=== PATIENT | female | born 1950 | race African-American/Black ===

== ENCOUNTER 2018-12-11 16:19 | Inpatient (IN) | payer OTHER ==
[~2018-12-11] VITALS: Ht 180.3 cm; Wt 86.4 kg
[2018-12-11 16:36] VITALS: Ht 180.3 cm; Wt 86.4 kg
[2018-12-11] MEDS ORDERED: CEFEPIME 2GM/50 ML (PMX) 50 ML IVPB STA (16:38)
--- NOTE | 2018-12-11 16:44 | ERD ---
ER Documentation Chief Complaint Chief Complaint fr [facility], altered >ususal since 0900, abx KieraI HPI 68-year-old female presenting by ambulance from [facility], [place] for altered mental status. This started around 9 AM today. Reportedly she is on antibiotics for a UTI. Otherwise history is limited as the patient is unable to answer any questions due to her mental status. ROS Unable to obtain secondary to altered mental status Medications Home Meds Reported Medications Vancomycin HCl in Dextrose 5 % (Vancomycin 1.5 Gram/250 ml-D5w) 1.5 Gm/250 Ml Plast..bag, 1.5 GM IV Q48H FOR 7 DAYS,END DATE 12/17/18 12/11/18 Tuberculin,Purif.prot.deriv. (Tubersol) 5 Tub Unit/0.1 Ml Vial, 5 TUB ID QHS, VIAL EVERY 365 DAY. 12/11/18 Tramadol Hcl* (Ultram*) 50 Mg Tablet, 50 MG GTB Q6H PRN for PAIN -06/22, TAB 12/11/18 Simethicone* (Mylicon*) 80 Mg Tab, 80 MG GTB Q6H, TAB 12/11/18 Protein Supplement (Promod) 946 Ml Liquid, 30 ML GTB TID 12/11/18 Multivitamin/Minerals* (Multivitamin w/Min* Liq) 9 Mg/15 Ml Liquid, 30 ML GTB DAILY, ML 12/11/18 Mirtazapine* (Mirtazapine*) 7.5 Mg Tablet, 7.5 MG GTB HS, TAB 12/11/18 Metformin Hcl* (Metformin Hcl*) 500 Mg Tablet, 500 MG GTB WITH BREAKFAST DINNE, #60 TAB 12/11/18 Levothyroxine Sodium* (Levothyroxine Sodium*) 75 Mcg Tablet, 75 MCG GTB BEFORE BREAKFAST, #30 TAB 12/11/18 Gabapentin* (Gabapentin*) 300 Mg Capsule, 300 MG GTB QHS, #60 CAP 12/11/18 Ipratropium-Albuterol (Ipratropium-Albuterol) 0.5-3 Mg/3 Ml Ampul.neb, 3 ML INHALATION Q6 PRN for NEEDED, #30 VIAL 12/11/18 Clonidine Hcl* (Clonidine Hcl*) 0.1 Mg Tab, 0.1 MG GTB Q6H PRN for FOR SBP>160, TAB 12/11/18 Cefepime HCl (Cefepime HCl) 2 Gm Vial, 2 GM IV* BID, VIAL FOR 7 DAYS, END DATE 12/14/18 12/11/18 Ascorbic Acid (Vitamin C) 500 Mg Tab, 500 MG GTB DAILY, TAB 12/11/18 Acetaminophen* (Acetaminophen*) 325 Mg Tablet, 650 MG GTB Q6H PRN for MILD PAIN LEVEL 1-3, #30 TAB AND FEVER>101F 12/11/18 Allergies Allergies: Coded Allergies: benazepril (Unverified Allergy, Unknown, 12/11/18) PMhx/Soc History of Surgery: Yes (Tracheostomy, G-tube) Hx Neurological Disorder: Yes (Cervical disc disorder with myelopathy) Hx Respiratory Disorders: Yes (Chronic respiratory failure) Hx Cardiac Disorders: Yes (Diastolic congestive heart failure, hypertension) Hx Miscellaneous Medical Probl: Yes (DVT right lower extremity, hypothyroid) FmHx Unable to obtain Physical Exam Vitals Vital Signs Date Temp Pulse Resp B/P (MAP) Pulse Ox O2 O2 Flow FiO2 Time Delivery Rate 12/11/18 96.2 64 14 128/70 100 Nasal 2.0 18:29 (89) Cannula 12/11/18 Nasal 2 17:40 Cannula 12/11/18 51 15 99/72 (81) 100 Nasal 2.0 17:40 Cannula 12/11/18 93.0 66 19 175/159 100 Trach 17:09 (164) Collar 12/11/18 96.3 67 23 135/121 100 16:36 (126) Physical Exam Const: No acute distress. Alert, awake, not speaking Head: Atraumatic Eyes: Normal Conjunctiva, PERRLA, EOMI ENT: Dry mucous membranes. Normal External Ears, Nose and Mouth. Neck: Full range of motion. No meningismus.Trach in place Resp: Tachypneic. Rhonchi bilaterally, possibly transmitted upper respiratory sounds Cardio: Regular rate and rhythm, no murmurs Abd: Soft, non tender, non distended. Normal bowel sounds Skin: No petechiae or rashes Back: No midline or flank tenderness Ext: No cyanosis, or edema Neur: Awake and alert, not speaking, not following commands but makes eye contact and tracks. moves upper extremities spontaneously. No withdrawal to pain in lower extremities Psych: Calm Result Diagram: 12/11/18 1650 12/11/18 1650 Results 24 hrs Laboratory Tests Test 12/11/18 16:50 12/11/18 17:04 White Blood Count 8.2 10^3/ul Red Blood Count 2.56 10^6/ul Hemoglobin 7.2 g/dl Hematocrit 22.5 % Mean Corpuscular Volume 87.9 fl Mean Corpuscular Hemoglobin 28.1 pg Mean Corpuscular Hemoglobin Concent 32.0 g/dl Red Cell Distribution Width 13.3 % Platelet Count 376 10^3/UL Mean Platelet Volume 9.6 fl Immature Granulocytes % 4.900 % Neutrophils % 74.6 % Lymphocytes % 13.9 % Monocytes % 6.0 % Eosinophils % 0.4 % Basophils % 0.2 % Nucleated Red Blood Cells % 0.6 /100WBC Immature Granulocytes # 0.400 10^3/ul Neutrophils # 6.1 10^3/ul Lymphocytes # 1.1 10^3/ul Monocytes # 0.5 10^3/ul Eosinophils # 0.0 10^3/ul Basophils # 0.0 10^3/ul Nucleated Red Blood Cells # 0.1 10^3/ul Prothrombin Time 13.8 Sec Prothrombin Time Ratio 1.1 INR International Normalized Ratio 1.05 Activated Partial Thromboplast Time 33.6 Sec Sodium Level 148 mmol/L Potassium Level 3.5 mmol/L Chloride Level 116 mmol/L Carbon Dioxide Level 24 mmol/L Anion Gap 8 Blood Urea Nitrogen 147 mg/dl Creatinine 1.07 mg/dl Est Glomerular Filtrat Rate mL/min > 60 mL/min Glucose Level 129 mg/dl Lactic Acid Level 1.6 mmol/L Calcium Level 9.1 mg/dl Total Bilirubin 0.1 mg/dl Direct Bilirubin 0.00 mg/dl Indirect Bilirubin 0.1 mg/dl Aspartate Amino Transf (AST/SGOT) 26 IU/L Alanine Aminotransferase (ALT/SGPT) 17 IU/L Alkaline Phosphatase 89 IU/L Troponin I < 0.012 ng/ml Total Protein 8.3 g/dl Albumin 3.0 g/dl Globulin 5.30 g/dl Albumin/Globulin Ratio 0.56 Urine Color YELLOW Urine Clarity CLOUDY Urine pH 6.0 Urine Specific [place] 1.013 Urine Ketones TRACE mg/dL Urine Nitrite NEGATIVE mg/dL Urine Bilirubin NEGATIVE mg/dL Urine Urobilinogen NEGATIVE mg/dL Urine Leukocyte Esterase 3+ Gm/ul Urine Microscopic RBC 2 /HPF Urine Microscopic WBC > 182 /HPF Urine Bacteria FEW /HPF Urine Hemoglobin NEGATIVE mg/dL Urine Glucose NEGATIVE mg/dL Urine Total Protein 1+ mg/dl Current Medications Medications Dose Sig/Tracy Start Time Status Last (Trade) Ordered Route PRN Stop Time Admin Dose Reason Admin Cefepime HCl 50 ml @ ONCE STAT 12/11/18 DC 12/11/18 100 mls/hr IVPB 16:38 17:24 12/11/18 17:07 Vancomycin 250 ml @ ONCE ONCE 12/11/18 12/11/18 HCl 125 mls/hr IVPB 17:00 18:04 12/11/18 18:59 Sodium 2,590 ml BOLUS OVER 2 12/11/18 DC 12/11/18 Chloride HOURS STAT 16:45 16:45 (NS) IV* 12/11/18 16:46 Ondansetron 4 mg ER BRIDGE 12/11/18 HCl (Zofran PRN IV 18:30 12/12/18 Inj) NAUSEA/VOMITI 18:29 NG 650 mg ER BRIDGE 12/11/18 Acetaminophen PRN PO 18:30 12/12/18 (Tylenol .MILD PAIN 18:29 Tab) 1-3 OR TEMP Procedures/MDM EMERGENT LABS AND DIAGNOSTIC STUDIES: Lab Results above were reviewed and interpreted by me. CBC: Anemic. No leukocytosis or thrombocytosis CMP: Hypernatremia, hyperchloremia, elevated BUN, consistent with dehydration and prerenal azotemia. No evidence of electrolyte abnormality, hypoglycemia, liver failure, or biliary obstruction Troponin within normal limits, not indicative of cardiac ischemia Lactate within normal limits without evidence of sepsis or tissue hypoperfusion UA: Evidence of UTI 12-lead EKG was interpreted by Yas Frias MD: Sinus bradycardia at 57 bpm with first-degree AV block Normal axis Normal intervals No acute ST or T wave changes suggestive of acute ischemia or STEMI. Radiology Results as interpreted by Radiology below were reviewed by Velma Frias MD: Chest x-ray: Evidence of pneumonia CT head: No acute abnormalities Initial Nursing notes reviewed. Previous Medical Records requested via the Electronic Health Record. EMERGENCY DEPARTMENT COURSE / MEDICAL DECISION MAKING: Patient is presenting with altered mental status and workup that shows evidence of UTI and pneumonia. She was hypothermic, for which more warming measures were started. Labs do indicate patient is severely dehydrated. Sepsis workup and treatment was initiated. Patient's infectious symptoms have not stabilized and the patient is at risk of rapid decompensation. The patient will be admitted for careful hydration, antibiotic therapy, and infectious source control. Severe Sepsis Assessment: Infectious Source: Health care associated pneumonia, UTI End organ damage indicated by: Altered mental status Severe Sepsis Managment: Blood Cultures X 2 before broad spectrum antibiotics initiated within 3 hours of recognition. 30 ml/kg NS bolus Completed Initial Lactate: [normal] Repeat Lactate [not indicated as initial < 2.0] Critical Care: Time: 45 minutes Treatments/Evaluations: Emergent fluid management, while maintaining close respiratory support. Immediate broad spectrum antibiotic therapy. Simultaneous assessment for possible sources in order to direct therapy. Consideration for invasive and chemical support to prevent respiratory or cardiac collapse. Septic Shock Assessment (1 hour post 30 ml/kg fluid bolus): Hypotension (SBP < 90 or 40 mmHg drop, MAP < 65): [No] Lactic acid > 4.0 [No] Accepting Care Team: Current data and ongoing care discussed. Time: Time of admission Primary Provider: Dr. Frantz Goff Diagnosis: Primary Impression: Altered level of consciousness Additional Impressions: Hypothermia Encounter type: initial encounter Qualified Codes: T68.XXXA - Hypothermia, initial encounter Anemia Anemia type: unspecified type Qualified Codes: D64.9 - Anemia, unspecified Healthcare-associated pneumonia UTI (urinary tract infection) Urinary tract infection type: site unspecified Hematuria presence: without hematuria Qualified Codes: N39.0 - Urinary tract infection, site not specified Condition: Serious PETRONA FRIAS MD Dec 11, 2018 16:44
[2018-12-11] MEDS ORDERED: SODIUM CHLORIDE 0.9% 1L BAG IV* STA (16:45)
[2018-12-11] MEDS ORDERED: VANCOMYCIN 1 GM (PMX) 250 ML IVPB ONE (17:00)
[2018-12-11] MEDS ORDERED: ACET325T45 GTB (17:26)
[2018-12-11] MEDS ORDERED: ASC500 GTB (17:27)
[2018-12-11] MEDS ORDERED: CEFE2VIA3 IV* (17:28)
[2018-12-11] MEDS ORDERED: CLON-379 GTB (17:29)
[2018-12-11] MEDS ORDERED: IPRA3AMP29 INHALATION (17:30)
[2018-12-11] MEDS ORDERED: GABA300C16 GTB (17:30)
[2018-12-11] MEDS ORDERED: LEVO75TA5 GTB (17:31)
[2018-12-11] MEDS ORDERED: METF500T24 GTB (17:31)
[2018-12-11] MEDS ORDERED: MIRT7.5T8 GTB (17:32)
[2018-12-11] MEDS ORDERED: MULT9LIQ2 GTB (17:39)
[2018-12-11] MEDS ORDERED: PROT946L GTB (17:47)
[2018-12-11] MEDS ORDERED: SIME80TA60 GTB (17:49)
[2018-12-11] MEDS ORDERED: TRAM50TA GTB (17:50)
[2018-12-11] MEDS ORDERED: TUBE5VIA3 ID (17:51)
[2018-12-11] MEDS ORDERED: VANC1.5P12 IV (17:52)
[2018-12-11] MEDS ORDERED: ONDANSETRON 4 MG INJ IV PRN ×2 (18:30→19:00)
[2018-12-11] MEDS ORDERED: ACETAMINOPHEN 325 MG TAB PO PRN ×2 (18:30→19:00)
[2018-12-11] MEDS ORDERED: SOD CHLORIDE 0.9% 1,000 ML IV SCH (18:52)
[2018-12-11] MEDS ORDERED: ACETAMINOPHEN 325 MG TAB GTB PRN (19:00)
[2018-12-11] MEDS ORDERED: morphine 2 MG INJ IV PRN (19:00)
[2018-12-11] MEDS ORDERED: traMADol 50 MG TAB GTB PRN (19:00)
[2018-12-11] MEDS ORDERED: HYDROCODONE/APAP (5/325) TAB PO PRN (19:00)
[2018-12-11] MEDS ORDERED: NACL 0.9% 3 ML SYG IV SCH (19:00)
--- NOTE | 2018-12-11 19:22 | HP ---
Date/Time of Note Date/Time of Note DATE: 12/11/18 TIME: 19:12 Assessment/Plan VTE Prophylaxis Pharmacological prophylaxis: LMWH Lines/Catheters IV Catheter Type (from Nrs): Saline Lock Assessment/Plan Hospital Course 1. Sepsis with acute metabolic encephalopathy and hypothermia secondary to UTI and/or aspiration pneumonia Of note patient appears to be on cefepime already at the nursing facility but continues to have UTI Follow-up on urine and blood cultures Zosyn IV Rewarming CT head shows no acute findings 2. Chronic encephalopathy with functional quadriplegia and chronic respiratory failure Resides in a long-term facility Tracheostomy noted Etiology of chronic encephalopathy unknown, likely dementia CT head with no evidence of old strokes, mild to moderate volume loss is noted 3. Profound azotemia possibly secondary to severe dehydration IV fluids Renal function appears to be intact Consider nephrology consultation in a.m. 4. Hypernatremia secondary dehydration IV fluids Consider nephrology consultation in a.m. 5. Normocytic anemia likely secondary to chronic disease Monitor Prophylaxis: Lovenox Result Diagram: 12/11/18 1650 12/11/18 1650 Results 24hrs Laboratory Tests Test 12/11/18 16:50 12/11/18 17:04 12/11/18 18:32 White Blood Count 8.2 Red Blood Count 2.56 L Hemoglobin 7.2 L Hematocrit 22.5 L Mean Corpuscular Volume 87.9 Mean Corpuscular Hemoglobin 28.1 L Mean Corpuscular Hemoglobin Concent 32.0 Red Cell Distribution Width 13.3 Platelet Count 376 Mean Platelet Volume 9.6 Immature Granulocytes % 4.900 H Neutrophils % 74.6 Lymphocytes % 13.9 L Monocytes % 6.0 Eosinophils % 0.4 Basophils % 0.2 Nucleated Red Blood Cells % 0.6 H Immature Granulocytes # 0.400 H Neutrophils # 6.1 Lymphocytes # 1.1 Monocytes # 0.5 Eosinophils # 0.0 Basophils # 0.0 Nucleated Red Blood Cells # 0.1 H Prothrombin Time 13.8 Prothrombin Time Ratio 1.1 INR International Normalized Ratio 1.05 Activated Partial Thromboplast Time 33.6 Sodium Level 148 H Potassium Level 3.5 Chloride Level 116 H Carbon Dioxide Level 24 Anion Gap 8 Blood Urea Nitrogen 147 H Creatinine 1.07 H Est Glomerular Filtrat Rate mL/min > 60 Glucose Level 129 Lactic Acid Level 1.6 0.9 Calcium Level 9.1 Total Bilirubin 0.1 L Direct Bilirubin 0.00 Indirect Bilirubin 0.1 Aspartate Amino Transf (AST/SGOT) 26 Alanine Aminotransferase (ALT/SGPT) 17 Alkaline Phosphatase 89 Troponin I < 0.012 Total Protein 8.3 H Albumin 3.0 L Globulin 5.30 H Albumin/Globulin Ratio 0.56 Urine Color YELLOW Urine Clarity CLOUDY A Urine pH 6.0 Urine Specific [place] 1.013 Urine Ketones TRACE A Urine Nitrite NEGATIVE Urine Bilirubin NEGATIVE Urine Urobilinogen NEGATIVE Urine Leukocyte Esterase 3+ H Urine Microscopic RBC 2 Urine Microscopic WBC > 182 H Urine Bacteria FEW A Urine Hemoglobin NEGATIVE Urine Glucose NEGATIVE Urine Total Protein 1+ H HPI/ROS Admit Date/Time Admit Date/Time December 11, 2018 Hx of Present Illness Patient is a 68-year-old female who resides in a half-way at [facility], patient has a history of functional quadriplegia, chronic respiratory failure with trach otherwise and no medical history. Patient presents from the half-way with altered mental status since this morning, patient reportedly is on antibiotics for UTI. Patient has no prior visits to this hospital and no other history could be obtained. In the ER UA was positive for UTI, chest x-ray suggested aspiration pneumonia. ROS Subjective hx not possible: pt non-verbal PMH/Family/Social Past Medical History As per HPI Medications Current Medications Ondansetron HCl (Zofran Inj) 4 mg ER BRIDGE PRN IV NAUSEA/VOMITING; Start 12/11/18 at 18:30; Stop 12/12/18 at 18:29 Acetaminophen (Tylenol Tab) 650 mg ER BRIDGE PRN PO .MILD PAIN 1-3 OR TEMP; Start 12/11/18 at 18:30; Stop 12/12/18 at 18:29 Sodium Chloride 1,000 ml @ 100 mls/hr Q10H IV ; Start 12/11/18 at 18:52 IV Flush (NS 3 ml) 3 ml PER PROTOCOL IV ; Start 12/11/18 at 19:00 Ondansetron HCl (Zofran Inj) 4 mg Q6H PRN IV NAUSEA/VOMITING; Start 12/11/18 at 19:00 Acetaminophen (Tylenol Tab) 650 mg Q6H PRN PO .PAIN 1-3 OR TEMP; Start 12/11/18 at 19:00 Acetaminophen/ Hydrocodone Bitart ([place] (5/325)) 1 tab Q6H PRN PO .MOD PAIN 4- 6; Start 12/11/18 at 19:00 Morphine Sulfate (morphine) 2 mg Q4H PRN IV .SEVERE PAIN 7-10; Start 12/11/18 at 19:00 Enoxaparin Sodium (Lovenox) 40 mg DAILY SC ; Start 12/12/18 at 09:00 Acetaminophen (Tylenol Tab) 650 mg Q6H PRN GTB MILD PAIN LEVEL 1-3; Start 12/11/18 at 19:00 Ascorbic Acid (Vitamin C) 500 mg DAILY GTB ; Start 12/12/18 at 09:00 Clonidine (Catapres) 0.1 mg Q6H PRN GTB FOR SBP>160; Start 12/11/18 at 19:00 Gabapentin (Neurontin) 300 mg QHS GTB ; Start 12/11/18 at 21:00 Levothyroxine Sodium (Synthroid) 75 mcg BEFORE BREAKFAST GTB ; Start 12/12/18 at 07:00 Mirtazapine (Remeron) 7.5 mg HS GTB ; Start 12/11/18 at 21:00 Simethicone (Mylicon) 80 mg Q6H GTB ; Start 12/11/18 at 19:00 Tramadol HCl (Ultram) 50 mg Q6H PRN GTB PAIN 4-10/10; Start 12/11/18 at 19:00 Albuterol/ Ipratropium (Duoneb) 3 ml Q4H RESP THERAPY PRN HHN SHORTNESS OF BREATH; Start 12/11/18 at 19:00 Piperacillin Sod/ Tazobactam Sod 100 ml @ 200 mls/hr Q6 IVPB ; Start 12/12/18 at 00:00; Status UNV Coded Allergies: benazepril (Unverified Allergy, Unknown, 12/11/18) Family History Significant Family History: no pertinent family hx Social History Alcohol Use: none Smoking Status: Unknown if ever smoked Drug Use: none Exam/Review of Systems Vital Signs Vitals Vital Signs Date Temp Pulse Resp B/P (MAP) Pulse Ox O2 O2 Flow FiO2 Time Delivery Rate 12/11/18 96.2 64 14 128/70 100 Nasal 2.0 18:29 (89) Cannula Exam Constitutional: non-verbal Respiratory: clear to auscultation Cardiovascular: regular rate and rhythm Gastrointestinal: soft; No distended Musculoskeletal: nl extremities to inspection ZACH GROVER Dec 11, 2018 19:22
[2018-12-11 20:36] VITALS: PULSE 59
[2018-12-11 20:58] VITALS: BP 107/58; PULSE 58; RESP 18
[2018-12-11] MEDS ORDERED: MIRTAZAPINE 15 MG TAB GTB SCH (21:00)
[2018-12-11] MEDS: GABAPENTIN 300 MG CAP GTB SCH (21:57)
[2018-12-11] MEDS: NS + KCL 20 MEQ 1,000 ML IV SCH (22:10)
[2018-12-11 23:29] VITALS: BP 218/117; PULSE 55; RESP 18
[2018-12-12] VITALS (76 sets, daily range): BP systolic 53–218; BP diastolic 37–193; PULSE 43–69; RESP 10–32
[2018-12-12] MEDS ORDERED: hydrALAzine 20 MG INJ IV ONE
[2018-12-12] MEDS: PIPER-TAZO 3.375 GM IV (PMX) 100 ML IVPB SCH ×4 (00:20→18:15)
[2018-12-12] MEDS ORDERED: SOD CHLORIDE 0.9% 500 ML IV ONE (04:00)
[2018-12-12] MEDS ORDERED: NORepinephrine 8MG/250 ML (PMX 250 ML ONE (05:01)
[2018-12-12] MEDS: NS + KCL 20 MEQ 1,000 ML IV SCH (05:30)
[2018-12-12] MEDS: NORepinephrine 8MG/250 ML (PMX 250 ML IV SCH (06:14)
[2018-12-12] MEDS ORDERED: MAGNESIUM SULFATE 2 GM/50 ML 50 ML IVPB ONE (07:00)
[2018-12-12] MEDS ORDERED: POTASSIUM CHLORIDE 100 ML IVPB ONE (08:00)
[2018-12-12] MEDS: ASCORBIC ACID 500 MG TAB GTB SCH (08:57)
[2018-12-12] MEDS ORDERED: ENOXAPARIN 40 MG/0.4 ML SYG SC SCH (09:00)
--- NOTE | 2018-12-12 09:17 | CONS ---
Assessment/Plan Assessment/Plan Assessment/Plan (Daily) Chest x-ray showing right lower lobe pneumonia. Assessment and recommendations; 1. Patient with history of functional quadriplegia maintained on tracheostomy with capping admitted for sepsis due to pneumonia as well as severe intravascular volume depletion with prerenal azotemia and severe anemia. 2. Hyponatremia due to volume depletion. 3. Encephalopathy with interval improvement. 4. Mild persistent hypotension. 5. Mild hypokalemia. Continue current supportive care. Continue current antibiotics. Wean down pressor support as tolerated. Switch normal saline to D5 at 125 mm/h. Follow- up electrolytes. Patient getting blood transfusion. May need EGD and colonoscopy. Meanwhile discontinue Lovenox for DVT prophylaxis. Obtain follow- up chest x-ray in 24 hours. Consultation Date/Type/Reason Admit Date/Time December 11, 2018 Date of Consultation: Dec 12, 2018 Type of Consult Pulmonary/critical care Patient is a 68-year-old lady who was admitted to the hospital transferred from intermediate with hypotension as well as altered mental status. Patient has been diagnosed with bilateral pneumonia as well as severe prerenal azotemia with hyponatremia as well as anemia. The patient has improved after being admitted with significant improvement in mental status still requiring low-dose Levophed. The patient has been adequately fluid resuscitated and also getting blood transfusion. By the time I saw her in ICU, patient is on her tracheostomy with Applied and is appropriately responsive. Patient did not appear to be in any distress. Past medical history; 1. History of C-spine surgery with functional quadriplegia. 2. History of G-tube placement. 3. Possibly chronic encephalopathy. 4. Chronic respiratory failure, patient however doing fairly well on tracheostomy with capping. Medications; reviewed. Patient is currently on Levophed 2 mics per minute. Allergies; as outlined above. Social history; noncontributory. Family history; not available. Occupational history; not available. Review of systems; not able to be obtained. General exam; elderly woman, awake and fairly responsive. Currently in no distress. Date/Time of Note DATE: 12/12/18 TIME: 09:11 Past Medical History Home Meds Reported Medications Vancomycin HCl in Dextrose 5 % (Vancomycin 1.5 Gram/250 ml-D5w) 1.5 Gm/250 Ml Plast..bag, 1.5 GM IV Q48H FOR 7 DAYS,END DATE 12/17/18 12/11/18 Tuberculin,Purif.prot.deriv. (Tubersol) 5 Tub Unit/0.1 Ml Vial, 5 TUB ID QHS, VIAL EVERY 365 DAY. 12/11/18 Tramadol Hcl* (Ultram*) 50 Mg Tablet, 50 MG GTB Q6H PRN for PAIN 4-06/22, TAB 12/11/18 Simethicone* (Mylicon*) 80 Mg Tab, 80 MG GTB Q6H, TAB 12/11/18 Protein Supplement (Promod) 946 Ml Liquid, 30 ML GTB TID 12/11/18 Multivitamin/Minerals* (Multivitamin w/Min* Liq) 9 Mg/15 Ml Liquid, 30 ML GTB DAILY, ML 12/11/18 Mirtazapine* (Mirtazapine*) 7.5 Mg Tablet, 7.5 MG GTB HS, TAB 12/11/18 Metformin Hcl* (Metformin Hcl*) 500 Mg Tablet, 500 MG GTB WITH BREAKFAST DINNE, #60 TAB 12/11/18 Levothyroxine Sodium* (Levothyroxine Sodium*) 75 Mcg Tablet, 75 MCG GTB BEFORE BREAKFAST, #30 TAB 12/11/18 Gabapentin* (Gabapentin*) 300 Mg Capsule, 300 MG GTB QHS, #60 CAP 12/11/18 Ipratropium-Albuterol (Ipratropium-Albuterol) 0.5-3 Mg/3 Ml Ampul.neb, 3 ML INHALATION Q6 PRN for NEEDED, #30 VIAL 12/11/18 Clonidine Hcl* (Clonidine Hcl*) 0.1 Mg Tab, 0.1 MG GTB Q6H PRN for FOR SBP>160, TAB 12/11/18 Cefepime HCl (Cefepime HCl) 2 Gm Vial, 2 GM IV* BID, VIAL FOR 7 DAYS, END DATE 12/14/18 12/11/18 Ascorbic Acid (Vitamin C) 500 Mg Tab, 500 MG GTB DAILY, TAB 12/11/18 Acetaminophen* (Acetaminophen*) 325 Mg Tablet, 650 MG GTB Q6H PRN for MILD PAIN LEVEL 1-3, #30 TAB AND FEVER>101F 12/11/18 Medications Current Medications IV Flush (NS 3 ml) 3 ml PER PROTOCOL IV ; Start 12/11/18 at 19:00 Ondansetron HCl (Zofran Inj) 4 mg Q6H PRN IV NAUSEA/VOMITING; Start 12/11/18 at 19:00 Acetaminophen (Tylenol Tab) 650 mg Q6H PRN PO .PAIN 1-3 OR TEMP; Start 12/11/18 at 19:00 Acetaminophen/ Hydrocodone Bitart ([place] (5/325)) 1 tab Q6H PRN PO .MOD PAIN 4- 6; Start 12/11/18 at 19:00 Morphine Sulfate (morphine) 2 mg Q4H PRN IV .SEVERE PAIN 7-10; Start 12/11/18 at 19:00 Acetaminophen (Tylenol Tab) 650 mg Q6H PRN GTB MILD PAIN LEVEL 1-3; Start 12/11/18 at 19:00 Ascorbic Acid (Vitamin C) 500 mg DAILY GTB Last administered on 12/12/18at 08:57; Admin Dose 500 MG; Start 12/12/18 at 09:00 Clonidine (Catapres) 0.1 mg Q6H PRN GTB FOR SBP>160; Start 12/11/18 at 19:00 Gabapentin (Neurontin) 300 mg QHS GTB Last administered on 12/11/18at 21:57; Admin Dose 300 MG; Start 12/11/18 at 21:00 Levothyroxine Sodium (Synthroid) 75 mcg BEFORE BREAKFAST GTB ; Start 12/12/18 at 07:00 Mirtazapine (Remeron) 7.5 mg HS GTB Last administered on 12/11/18at 21:57; Admin Dose 7.5 MG; Start 12/11/18 at 21:00 Simethicone (Mylicon) 80 mg Q6H GTB Last administered on 12/12/18at 07:06; Admin Dose 80 MG; Start 12/11/18 at 19:00 Tramadol HCl (Ultram) 50 mg Q6H PRN GTB PAIN 4-10/10; Start 12/11/18 at 19:00 Albuterol/ Ipratropium (Duoneb) 3 ml Q4H RESP THERAPY PRN HHN SHORTNESS OF BREATH; Start 12/11/18 at 19:00 Piperacillin Sod/ Tazobactam Sod 100 ml @ 200 mls/hr Q6 IVPB Last administered on 12/12/18at 06:11; Admin Dose 200 MLS/HR; Start 12/12/18 at 00:00 Potassium Chloride/Sodium Chloride 1,000 ml @ 100 mls/hr Q10H IV Last administered on 12/11/18at 22:10; Admin Dose 100 MLS/HR; Start 12/11/18 at 19:30 Norepinephrine 250 ml @ 1.875 mls/ hr TITRATE IV Last administered on 12/12/18at 06:14; Admin Dose 9.375 MLS/HR; Start 12/12/18 at 05:00 Potassium Chloride 100 ml @ 50 mls/hr ONCE ONCE IVPB Last administered on 12/12/18at 08:58; Admin Dose 50 MLS/HR; Start 12/12/18 at 08:00; Stop 12/12/18 at 09:59 Allergies: Coded Allergies: benazepril (Unverified Allergy, Unknown, 12/11/18) Social History Alcohol Use: none Smoking Status: Unknown if ever smoked Drug Use: none Exam/Review of Systems Exam Vitals Vital Signs Date Temp Pulse Resp B/P (MAP) Pulse Ox O2 O2 Flow FiO2 Time Delivery Rate 12/12/18 60 25 79/52 (61) 99 Nasal 2.0 06:15 Cannula 12/12/18 97.8 05:15 Intake and Output 12/11/18 12/11/18 12/12/18 1515:00 23:00 07:00 IntakeIntake Total 1200 ml OutputOutput Total 460 ml BalanceBalance 740 ml Exam H EENT exam; supple neck, no JVD. No lymphadenopathy. Midline trachea. No thyromegaly. Tracheostomy in place. Patient is edentulous. Chest exam; diminished but clear breath sounds. S1-S2 audible, no murmurs. Regular rhythm. Abdomen exam; soft, no organomegaly. G-tube in place. Nondistended. Bowel sounds audible. Extremity exam; no peripheral edema. 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 Results Result Diagram: 12/12/18 0459 12/12/18 0459 Results 24hrs Laboratory Tests Test 12/11/18 16:50 12/11/18 17:04 12/11/18 18:32 12/11/18 21:06 White Blood Count 8.2 Red Blood Count 2.56 L Hemoglobin 7.2 L Hematocrit 22.5 L Mean Corpuscular 87.9 Volume Mean Corpuscular 28.1 L Hemoglobin Mean Corpuscular 32.0 Hemoglobin Concent Red Cell 13.3 Distribution Width Platelet Count 376 Mean Platelet Volume 9.6 Immature 4.900 H Granulocytes % Neutrophils % 74.6 Lymphocytes % 13.9 L Monocytes % 6.0 Eosinophils % 0.4 Basophils % 0.2 Nucleated Red Blood 0.6 H Cells % Immature 0.400 H Granulocytes # Neutrophils # 6.1 Lymphocytes # 1.1 Monocytes # 0.5 Eosinophils # 0.0 Basophils # 0.0 Nucleated Red Blood 0.1 H Cells # Prothrombin Time 13.8 Prothrombin Time 1.1 Ratio INR International 1.05 Normalized Ratio Activated 33.6 Partial Thromboplast Time Sodium Level 148 H Potassium Level 3.5 Chloride Level 116 H Carbon Dioxide Level 24 Anion Gap 8 Blood Urea Nitrogen 147 H Creatinine 1.07 H Est Glomerular > 60 Filtrat Rate mL/min Glucose Level 129 Lactic Acid Level 1.6 0.9 0.6 Calcium Level 9.1 Total Bilirubin 0.1 L Direct Bilirubin 0.00 Indirect Bilirubin 0.1 Aspartate Amino 26 Transf (AST/SGOT) Alanine 17 Aminotransferase (AL T/SGPT) Alkaline Phosphatase 89 Troponin I < 0.012 Total Protein 8.3 H Albumin 3.0 L Globulin 5.30 H Albumin/Globulin 0.56 Ratio Urine Color YELLOW Urine Clarity CLOUDY A Urine pH 6.0 Urine Specific 1.013 [place] Urine Ketones TRACE A Urine Nitrite NEGATIVE Urine Bilirubin NEGATIVE Urine Urobilinogen NEGATIVE Urine Leukocyte 3+ H Esterase Urine Microscopic 2 RBC Urine Microscopic > 182 H WBC Urine Bacteria FEW A Urine Hemoglobin NEGATIVE Urine Glucose NEGATIVE Urine Total Protein 1+ H Test 12/12/18 04:59 12/12/18 06:37 White Blood Count 8.4 Red Blood Count 2.45 L Hemoglobin 6.7 *L Hematocrit 21.2 L Mean Corpuscular 86.5 Volume Mean Corpuscular 27.3 L Hemoglobin Mean Corpuscular 31.6 L Hemoglobin Concent Red Cell 13.2 Distribution Width Platelet Count 353 Mean Platelet Volume 9.8 Immature 4.800 H Granulocytes % Neutrophils % Segmented 72 Neutrophils % (Manual) Band Neutrophils % 7 H (Manual) Lymphocytes % Lymphocytes % 13 L (Manual) Monocytes % Monocytes % (Manual) 6 Eosinophils % Eosinophils % 1 (Manual) Basophils % Myelocytes % 1 H (Manual) Nucleated Red Blood 0.7 H Cells % Immature 0.400 H Granulocytes # Neutrophils # Neutrophils # 6.1 (Manual) Band Neutrophils # 0.5 Lymphocytes (Manual) 1.0 Lymphocytes # Monocytes # Monocytes # (Manual) 0.5 Eosinophils # Basophils # Myelocytes # 0.0 Nucleated Red Blood Cells # Platelet Estimate NORMAL Polychromasia 3+ Hypochromasia 3+ Poikilocytosis 1+ Anisocytosis 2+ Macrocytosis 1+ Target Cells 1+ Ovalocytes 1+ Sodium Level 151 H Potassium Level 3.3 L Chloride Level 122 H Carbon Dioxide Level 23 Anion Gap 6 Blood Urea Nitrogen 127 H Creatinine 0.92 Est Glomerular > 60 Filtrat Rate mL/min Glucose Level 85 # Hemoglobin A1c 5.9 Calcium Level 8.2 L Phosphorus Level 2.5 Magnesium Level 1.6 L Bedside Glucose 106 Medications Medication Current Medications IV Flush (NS 3 ml) 3 ml PER PROTOCOL IV ; Start 12/11/18 at 19:00 Ondansetron HCl (Zofran Inj) 4 mg Q6H PRN IV NAUSEA/VOMITING; Start 12/11/18 at 19:00 Acetaminophen (Tylenol Tab) 650 mg Q6H PRN PO .PAIN 1-3 OR TEMP; Start 12/11/18 at 19:00 Acetaminophen/ Hydrocodone Bitart ([place] (5/325)) 1 tab Q6H PRN PO .MOD PAIN 4- 6; Start 12/11/18 at 19:00 Morphine Sulfate (morphine) 2 mg Q4H PRN IV .SEVERE PAIN 7-10; Start 12/11/18 at 19:00 Acetaminophen (Tylenol Tab) 650 mg Q6H PRN GTB MILD PAIN LEVEL 1-3; Start 12/11/18 at 19:00 Ascorbic Acid (Vitamin C) 500 mg DAILY GTB Last administered on 12/12/18at 08:57; Admin Dose 500 MG; Start 12/12/18 at 09:00 Clonidine (Catapres) 0.1 mg Q6H PRN GTB FOR SBP>160; Start 12/11/18 at 19:00 Gabapentin (Neurontin) 300 mg QHS GTB Last administered on 12/11/18at 21:57; Admin Dose 300 MG; Start 12/11/18 at 21:00 Levothyroxine Sodium (Synthroid) 75 mcg BEFORE BREAKFAST GTB ; Start 12/12/18 at 07:00 Mirtazapine (Remeron) 7.5 mg HS GTB Last administered on 12/11/18at 21:57; Admin Dose 7.5 MG; Start 12/11/18 at 21:00 Simethicone (Mylicon) 80 mg Q6H GTB Last administered on 12/12/18at 07:06; Admin Dose 80 MG; Start 12/11/18 at 19:00 Tramadol HCl (Ultram) 50 mg Q6H PRN GTB PAIN 4-06/22; Start 12/11/18 at 19:00 Albuterol/ Ipratropium (Duoneb) 3 ml Q4H RESP THERAPY PRN HHN SHORTNESS OF BREATH; Start 12/11/18 at 19:00 Piperacillin Sod/ Tazobactam Sod 100 ml @ 200 mls/hr Q6 IVPB Last administered on 12/12/18at 06:11; Admin Dose 200 MLS/HR; Start 12/12/18 at 00:00 Potassium Chloride/Sodium Chloride 1,000 ml @ 100 mls/hr Q10H IV Last administered on 12/11/18at 22:10; Admin Dose 100 MLS/HR; Start 12/11/18 at 19:30 Norepinephrine 250 ml @ 1.875 mls/ hr TITRATE IV Last administered on 12/12/18at 06:14; Admin Dose 9.375 MLS/HR; Start 12/12/18 at 05:00 Potassium Chloride 100 ml @ 50 mls/hr ONCE ONCE IVPB Last administered on 12/12/18at 08:58; Admin Dose 50 MLS/HR; Start 12/12/18 at 08:00; Stop 12/12/18 at 09:59 KARLA MAJOR Dec 12, 2018 09:17
[2018-12-12] MEDS: DEXTROSE 5% 1,000 ML IV SCH ×3 (09:32→20:56)
[2018-12-12] MEDS: LEVOTHYROXINE 75 MCG TAB GTB SCH (09:35)
[2018-12-12] MEDS ORDERED: LIDOCAINE 1% (MPF) 5 ML VIAL SC ONE (10:30)
--- NOTE | 2018-12-12 14:10 | PN ---
Date/Time of Note Date/Time of Note DATE: 12/12/18 TIME: 14:09 Assessment/Plan VTE Prophylaxis Risk score (from Ns)>0 risk: 6 SCD applied (from Ns): Yes Pharmacological prophylaxis: heparin Lines/Catheters IV [facility] Peripheral IV Urinary Cath still in place: Yes Reason Cath still needed: urinary retention Assessment/Plan Hospital Course 1. Sepsis with acute metabolic encephalopathy and hypothermia secondary to UTI and/or aspiration pneumonia Of note patient appears to be on cefepime already at the nursing facility but continues to have UTI Follow-up on urine and blood cultures Zosyn IV Rewarming CT head shows no acute findings 2. Chronic encephalopathy with functional quadriplegia and chronic respiratory failure Resides in a senior living facility Tracheostomy noted Etiology of chronic encephalopathy unknown, likely dementia CT head with no evidence of old strokes, mild to moderate volume loss is noted 3. Profound azotemia possibly secondary to severe dehydration IV fluids Renal function appears to be intact Consider nephrology consultation in a.m. 4. Hypernatremia secondary dehydration IV fluids Consider nephrology consultation in a.m. 5. Normocytic anemia likely secondary to chronic disease Monitor Prophylaxis: Lovenox Result Diagram: 12/12/18 0459 12/12/18 0459 Results 24hrs Laboratory Tests Test 12/11/18 16:50 12/11/18 17:04 12/11/18 18:32 12/11/18 21:06 White Blood Count 8.2 Red Blood Count 2.56 L Hemoglobin 7.2 L Hematocrit 22.5 L Mean Corpuscular 87.9 Volume Mean Corpuscular 28.1 L Hemoglobin Mean Corpuscular 32.0 Hemoglobin Concent Red Cell 13.3 Distribution Width Platelet Count 376 Mean Platelet Volume 9.6 Immature 4.900 H Granulocytes % Neutrophils % 74.6 Lymphocytes % 13.9 L Monocytes % 6.0 Eosinophils % 0.4 Basophils % 0.2 Nucleated Red Blood 0.6 H Cells % Immature 0.400 H Granulocytes # Neutrophils # 6.1 Lymphocytes # 1.1 Monocytes # 0.5 Eosinophils # 0.0 Basophils # 0.0 Nucleated Red Blood 0.1 H Cells # Prothrombin Time 13.8 Prothrombin Time 1.1 Ratio INR International 1.05 Normalized Ratio Activated 33.6 Partial Thromboplast Time Sodium Level 148 H Potassium Level 3.5 Chloride Level 116 H Carbon Dioxide Level 24 Anion Gap 8 Blood Urea Nitrogen 147 H Creatinine 1.07 H Est Glomerular > 60 Filtrat Rate mL/min Glucose Level 129 Lactic Acid Level 1.6 0.9 0.6 Calcium Level 9.1 Total Bilirubin 0.1 L Direct Bilirubin 0.00 Indirect Bilirubin 0.1 Aspartate Amino 26 Transf (AST/SGOT) Alanine 17 Aminotransferase (AL T/SGPT) Alkaline Phosphatase 89 Troponin I < 0.012 Total Protein 8.3 H Albumin 3.0 L Globulin 5.30 H Albumin/Globulin 0.56 Ratio Urine Color YELLOW Urine Clarity CLOUDY A Urine pH 6.0 Urine Specific 1.013 [place] Urine Ketones TRACE A Urine Nitrite NEGATIVE Urine Bilirubin NEGATIVE Urine Urobilinogen NEGATIVE Urine Leukocyte 3+ H Esterase Urine Microscopic 2 RBC Urine Microscopic > 182 H WBC Urine Bacteria FEW A Urine Hemoglobin NEGATIVE Urine Glucose NEGATIVE Urine Total Protein 1+ H Test 12/12/18 04:59 12/12/18 06:37 White Blood Count 8.4 Red Blood Count 2.45 L Hemoglobin 6.7 *L Hematocrit 21.2 L Mean Corpuscular 86.5 Volume Mean Corpuscular 27.3 L Hemoglobin Mean Corpuscular 31.6 L Hemoglobin Concent Red Cell 13.2 Distribution Width Platelet Count 353 Mean Platelet Volume 9.8 Immature 4.800 H Granulocytes % Neutrophils % Segmented 72 Neutrophils % (Manual) Band Neutrophils % 7 H (Manual) Lymphocytes % Lymphocytes % 13 L (Manual) Monocytes % Monocytes % (Manual) 6 Eosinophils % Eosinophils % 1 (Manual) Basophils % Myelocytes % 1 H (Manual) Nucleated Red Blood 0.7 H Cells % Immature 0.400 H Granulocytes # Neutrophils # Neutrophils # 6.1 (Manual) Band Neutrophils # 0.5 Lymphocytes (Manual) 1.0 Lymphocytes # Monocytes # Monocytes # (Manual) 0.5 Eosinophils # Basophils # Myelocytes # 0.0 Nucleated Red Blood Cells # Platelet Estimate NORMAL Polychromasia 3+ Hypochromasia 3+ Poikilocytosis 1+ Anisocytosis 2+ Macrocytosis 1+ Target Cells 1+ Ovalocytes 1+ Sodium Level 151 H Potassium Level 3.3 L Chloride Level 122 H Carbon Dioxide Level 23 Anion Gap 6 Blood Urea Nitrogen 127 H Creatinine 0.92 Est Glomerular > 60 Filtrat Rate mL/min Glucose Level 85 # Hemoglobin A1c 5.9 Calcium Level 8.2 L Phosphorus Level 2.5 Magnesium Level 1.6 L Bedside Glucose 106 Subjective 24 Hr Interval Summary Free Text/Dictation Remains lethargic but arouable Still on low dose vasopressors Exam/Review of Systems Exam Vitals Vital Signs Date Temp Pulse Resp B/P (MAP) Pulse Ox O2 O2 Flow FiO2 Time Delivery Rate 12/12/18 58 12:00 12/12/18 13 110/67 98 11:45 (81) 12/12/18 Room Air 11:30 12/12/18 97.3 08:00 12/12/18 2.0 06:15 Intake and Output 12/11/18 12/11/18 12/12/18 1515:00 23:00 07:00 IntakeIntake Total 1200 ml OutputOutput Total 460 ml BalanceBalance 740 ml Exam Lethargic but arousable Responsibve to commands Trach collar Mild tachypnea clear lungs paraplegia PEG tube Results Results 24hrs Laboratory Tests Test 12/11/18 16:50 12/11/18 17:04 12/11/18 18:32 12/11/18 21:06 White Blood Count 8.2 Red Blood Count 2.56 L Hemoglobin 7.2 L Hematocrit 22.5 L Mean Corpuscular 87.9 Volume Mean Corpuscular 28.1 L Hemoglobin Mean Corpuscular 32.0 Hemoglobin Concent Red Cell 13.3 Distribution Width Platelet Count 376 Mean Platelet Volume 9.6 Immature 4.900 H Granulocytes % Neutrophils % 74.6 Lymphocytes % 13.9 L Monocytes % 6.0 Eosinophils % 0.4 Basophils % 0.2 Nucleated Red Blood 0.6 H Cells % Immature 0.400 H Granulocytes # Neutrophils # 6.1 Lymphocytes # 1.1 Monocytes # 0.5 Eosinophils # 0.0 Basophils # 0.0 Nucleated Red Blood 0.1 H Cells # Prothrombin Time 13.8 Prothrombin Time 1.1 Ratio INR International 1.05 Normalized Ratio Activated 33.6 Partial Thromboplast Time Sodium Level 148 H Potassium Level 3.5 Chloride Level 116 H Carbon Dioxide Level 24 Anion Gap 8 Blood Urea Nitrogen 147 H Creatinine 1.07 H Est Glomerular > 60 Filtrat Rate mL/min Glucose Level 129 Lactic Acid Level 1.6 0.9 0.6 Calcium Level 9.1 Total Bilirubin 0.1 L Direct Bilirubin 0.00 Indirect Bilirubin 0.1 Aspartate Amino 26 Transf (AST/SGOT) Alanine 17 Aminotransferase (AL T/SGPT) Alkaline Phosphatase 89 Troponin I < 0.012 Total Protein 8.3 H Albumin 3.0 L Globulin 5.30 H Albumin/Globulin 0.56 Ratio Urine Color YELLOW Urine Clarity CLOUDY A Urine pH 6.0 Urine Specific 1.013 [place] Urine Ketones TRACE A Urine Nitrite NEGATIVE Urine Bilirubin NEGATIVE Urine Urobilinogen NEGATIVE Urine Leukocyte 3+ H Esterase Urine Microscopic 2 RBC Urine Microscopic > 182 H WBC Urine Bacteria FEW A Urine Hemoglobin NEGATIVE Urine Glucose NEGATIVE Urine Total Protein 1+ H Test 12/12/18 04:59 12/12/18 06:37 White Blood Count 8.4 Red Blood Count 2.45 L Hemoglobin 6.7 *L Hematocrit 21.2 L Mean Corpuscular 86.5 Volume Mean Corpuscular 27.3 L Hemoglobin Mean Corpuscular 31.6 L Hemoglobin Concent Red Cell 13.2 Distribution Width Platelet Count 353 Mean Platelet Volume 9.8 Immature 4.800 H Granulocytes % Neutrophils % Segmented 72 Neutrophils % (Manual) Band Neutrophils % 7 H (Manual) Lymphocytes % Lymphocytes % 13 L (Manual) Monocytes % Monocytes % (Manual) 6 Eosinophils % Eosinophils % 1 (Manual) Basophils % Myelocytes % 1 H (Manual) Nucleated Red Blood 0.7 H Cells % Immature 0.400 H Granulocytes # Neutrophils # Neutrophils # 6.1 (Manual) Band Neutrophils # 0.5 Lymphocytes (Manual) 1.0 Lymphocytes # Monocytes # Monocytes # (Manual) 0.5 Eosinophils # Basophils # Myelocytes # 0.0 Nucleated Red Blood Cells # Platelet Estimate NORMAL Polychromasia 3+ Hypochromasia 3+ Poikilocytosis 1+ Anisocytosis 2+ Macrocytosis 1+ Target Cells 1+ Ovalocytes 1+ Sodium Level 151 H Potassium Level 3.3 L Chloride Level 122 H Carbon Dioxide Level 23 Anion Gap 6 Blood Urea Nitrogen 127 H Creatinine 0.92 Est Glomerular > 60 Filtrat Rate mL/min Glucose Level 85 # Hemoglobin A1c 5.9 Calcium Level 8.2 L Phosphorus Level 2.5 Magnesium Level 1.6 L Bedside Glucose 106 Medications Medication Current Medications IV Flush (NS 3 ml) 3 ml PER PROTOCOL IV ; Start 12/11/18 at 19:00 Ondansetron HCl (Zofran Inj) 4 mg Q6H PRN IV NAUSEA/VOMITING; Start 12/11/18 at 19:00 Acetaminophen (Tylenol Tab) 650 mg Q6H PRN PO .PAIN 1-3 OR TEMP; Start 12/11/18 at 19:00 Acetaminophen/ Hydrocodone Bitart ([place] (5/325)) 1 tab Q6H PRN PO .MOD PAIN 4- 6; Start 12/11/18 at 19:00 Morphine Sulfate (morphine) 2 mg Q4H PRN IV .SEVERE PAIN 7-10; Start 12/11/18 at 19:00 Acetaminophen (Tylenol Tab) 650 mg Q6H PRN GTB MILD PAIN LEVEL 1-3; Start 12/11/18 at 19:00 Ascorbic Acid (Vitamin C) 500 mg DAILY GTB Last administered on 12/12/18at 08:57; Admin Dose 500 MG; Start 12/12/18 at 09:00 Clonidine (Catapres) 0.1 mg Q6H PRN GTB FOR SBP>160; Start 12/11/18 at 19:00 Gabapentin (Neurontin) 300 mg QHS GTB Last administered on 12/11/18at 21:57; Admin Dose 300 MG; Start 12/11/18 at 21:00 Levothyroxine Sodium (Synthroid) 75 mcg BEFORE BREAKFAST GTB ; Start 12/12/18 at 07:00 Mirtazapine (Remeron) 7.5 mg HS GTB Last administered on 12/11/18at 21:57; Admin Dose 7.5 MG; Start 12/11/18 at 21:00 Simethicone (Mylicon) 80 mg Q6H GTB Last administered on 12/12/18at 07:06; Admin Dose 80 MG; Start 12/11/18 at 19:00 Tramadol HCl (Ultram) 50 mg Q6H PRN GTB PAIN 4-10/10; Start 12/11/18 at 19:00 Albuterol/ Ipratropium (Duoneb) 3 ml Q4H RESP THERAPY PRN HHN SHORTNESS OF BREATH; Start 12/11/18 at 19:00 Piperacillin Sod/ Tazobactam Sod 100 ml @ 200 mls/hr Q6 IVPB Last administered on 12/12/18at 06:11; Admin Dose 200 MLS/HR; Start 12/12/18 at 00:00 Norepinephrine 250 ml @ 1.875 mls/ hr TITRATE IV Last administered on 12/12/18at 06:14; Admin Dose 9.375 MLS/HR; Start 12/12/18 at 05:00 Dextrose 1,000 ml @ 125 mls/hr Q8H IV Last administered on 12/12/18at 09:32; Admin Dose 125 MLS/HR; Start 12/12/18 at 09:30 CRUZ GORDILLO MD Dec 12, 2018 14:10
[2018-12-12] MEDS: GABAPENTIN 300 MG CAP GTB SCH (20:58)
[2018-12-13] VITALS (91 sets, daily range): BP systolic 61–170; BP diastolic 35–99; PULSE 44–78; RESP 9–27
[2018-12-13] MEDS: PIPER-TAZO 3.375 GM IV (PMX) 100 ML IVPB SCH ×4 (00:18→17:26)
[2018-12-13] MEDS: DEXTROSE 5% 1,000 ML IV SCH (05:18)
--- NOTE | 2018-12-13 08:00 | CONS ---
Assessment/Plan Assessment/Plan Assessment/Plan (Daily) Chest x-ray from today is pending. Patient is currently on Levophed at 2.5 mics per minute. Assessment recommendations; 1. Patient with history of chronic respiratory failure maintained on tracheos [place] with capping admitted for hypotension, anemia as well as intravascular volume depletion. Clinically improving in all parameters, however still requiring low-dose Levophed for persistent mild hypotension. 2. History of neuropathy 3. Hypothyroidism. 4. Significant anemia. 5. Encephalopathy. 6. Interval improvement in hypernatremia. 7. Bilateral pneumonia. More pronounced in right lower lobe. Continue current supportive care. Obtain stat ABG. Will obtain follow-up chest x-ray 24 hours. Wean down pressors as tolerated. Consultation Date/Type/Reason Admit Date/Time Dec 11, 2018 at 20:30 Initial Consult Date 12/12/18 Type of Consult Pulmonary/critical care Patient is a 68-year-old lady who was admitted to the hospital transferred from [facility] with hypotension as well as altered mental status. Patient has been diagnosed with bilateral pneumonia as well as severe prerenal azotemia with hyponatremia as well as anemia. The patient has improved after being admitted with significant improvement in mental status still requiring low-dose Levophed. The patient has been adequately fluid resuscitated and also getting blood transfusion. By the time I saw her in ICU, patient is on her tracheostomy with Applied and is appropriately responsive. Patient did not appear to be in any distress. Past medical history; 1. History of C-spine surgery with functional quadriplegia. 2. History of G-tube placement. 3. Possibly chronic encephalopathy. 4. Chronic respiratory failure, patient however doing fairly well on tracheostomy with capping. Medications; reviewed. Patient is currently on Levophed 2 mics per minute. Allergies; as outlined above. Social history; noncontributory. Family history; not available. Occupational history; not available. Review of systems; not able to be obtained. General exam; elderly woman, awake and fairly responsive. Currently in no distress. Date/Time of Note DATE: 12/13/18 TIME: 07:56 24 HR Interval Summary Free Text/Dictation Patient's condition remains critical. Remains mildly hypotensive on low-dose Levophed. General exam; elderly woman, awake, but lethargic. Currently no distress. Exhibiting shallow respirations. Exam/Review of Systems Exam Vitals Vital Signs Date Temp Pulse Resp B/P (MAP) Pulse Ox O2 O2 Flow FiO2 Time Delivery Rate 12/13/18 61 16 124/75 99 Nasal 05:30 (91) Cannula 12/13/18 3.0 04:15 12/13/18 97.5 04:00 Intake and Output 12/12/18 12/12/18 12/13/18 1515:00 23:00 07:00 IntakeIntake Total 742 ml 1161 ml 992.85 ml OutputOutput Total 510 ml 440 ml 340 ml BalanceBalance 232 ml 721 ml 652.85 ml Exam H EENT exam; supple neck, no JVD. No lymphadenopathy. Midline trachea. No thyromegaly. Tracheostomy in place with capping. Patient is fair condition. No neck masses. Chest exam; diminished breath sounds bilaterally. S1-S2 audible, no murmurs. Regular rhythm. Abdomen exam; soft, no organomegaly. Bowel sounds audible. Extremity exam; no edema. 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 Results Result Diagram: 12/13/18 0400 12/13/18 0513 Results 24hrs Laboratory Tests Test 12/13/18 04:00 12/13/18 05:00 12/13/18 05:13 White Blood Count 12.4 #H Red Blood Count 2.73 L Hemoglobin 7.7 L Hematocrit 24.3 L Mean Corpuscular Volume 89.0 Mean Corpuscular Hemoglobin 28.2 L Mean Corpuscular 31.7 L Hemoglobin Concent Red Cell Distribution Width 14.0 Platelet Count 324 Mean Platelet Volume 9.7 Immature Granulocytes % 2.100 H Neutrophils % 84.2 H Lymphocytes % 9.4 L Monocytes % 3.9 Eosinophils % 0.2 Basophils % 0.2 Nucleated Red Blood Cells % 0.6 H Immature Granulocytes # 0.260 H Neutrophils # 10.4 H Lymphocytes # 1.2 Monocytes # 0.5 Eosinophils # 0.0 Basophils # 0.0 Nucleated Red Blood Cells # 0.1 H Lab Scanned Report BLOOD TRANSFUSION Sodium Level 147 H Potassium Level 3.2 L Chloride Level 118 H Carbon Dioxide Level 22 Anion Gap 7 Blood Urea Nitrogen 106 H Creatinine 0.97 Est Glomerular Filtrat > 60 Rate mL/min Glucose Level 189 # Calcium Level 8.4 Total Bilirubin 0.1 L Direct Bilirubin 0.00 Indirect Bilirubin 0.1 Aspartate Amino Transf (AST/SGOT) 20 Alanine 10 L Aminotransferase (ALT/SGPT) Alkaline Phosphatase 80 Total Protein 7.4 Albumin 2.8 L Globulin 4.60 H Albumin/Globulin Ratio 0.60 Medications Medication Current Medications IV Flush (NS 3 ml) 3 ml PER PROTOCOL IV ; Start 12/11/18 at 19:00 Ondansetron HCl (Zofran Inj) 4 mg Q6H PRN IV NAUSEA/VOMITING; Start 12/11/18 at 19:00 Acetaminophen (Tylenol Tab) 650 mg Q6H PRN PO .PAIN 1-3 OR TEMP; Start 12/11/18 at 19:00 Acetaminophen/ Hydrocodone Bitart ([place] (5/325)) 1 tab Q6H PRN PO .MOD PAIN 4- 6; Start 12/11/18 at 19:00 Morphine Sulfate (morphine) 2 mg Q4H PRN IV .SEVERE PAIN 7-10; Start 12/11/18 at 19:00 Acetaminophen (Tylenol Tab) 650 mg Q6H PRN GTB MILD PAIN LEVEL 1-3; Start 12/11/18 at 19:00 Ascorbic Acid (Vitamin C) 500 mg DAILY GTB Last administered on 12/12/18at 08:57; Admin Dose 500 MG; Start 12/12/18 at 09:00 Clonidine (Catapres) 0.1 mg Q6H PRN GTB FOR SBP>160; Start 12/11/18 at 19:00 Gabapentin (Neurontin) 300 mg QHS GTB Last administered on 12/12/18at 20:58; Admin Dose 300 MG; Start 12/11/18 at 21:00 Levothyroxine Sodium (Synthroid) 75 mcg BEFORE BREAKFAST GTB ; Start 12/12/18 at 07:00 Simethicone (Mylicon) 80 mg Q6H GTB Last administered on 12/13/18at 01:14; Admin Dose 80 MG; Start 12/11/18 at 19:00 Tramadol HCl (Ultram) 50 mg Q6H PRN GTB PAIN 4-10/10; Start 12/11/18 at 19:00 Albuterol/ Ipratropium (Duoneb) 3 ml Q4H RESP THERAPY PRN HHN SHORTNESS OF BREATH; Start 12/11/18 at 19:00 Piperacillin Sod/ Tazobactam Sod 100 ml @ 200 mls/hr Q6 IVPB Last administered on 12/13/18at 05:29; Admin Dose 200 MLS/HR; Start 12/12/18 at 00:00 Norepinephrine 250 ml @ 1.875 mls/ hr TITRATE IV Last administered on 12/12/18at 06:14; Admin Dose 9.375 MLS/HR; Start 12/12/18 at 05:00 Dextrose 1,000 ml @ 125 mls/hr Q8H IV Last administered on 12/13/18at 05:18; Admin Dose 125 MLS/HR; Start 12/12/18 at 09:30 IV Flush (NS 10 ml) 10 ml PRN PRN IV IV PROTOCOL; Start 12/12/18 at 17:00 KARLA MAJOR Dec 13, 2018 08:00
[2018-12-13] MEDS: LEVOTHYROXINE 75 MCG TAB GTB SCH (08:19)
[2018-12-13] MEDS: ASCORBIC ACID 500 MG TAB GTB SCH (08:19)
--- NOTE | 2018-12-13 11:51 | PN ---
Date/Time of Note Date/Time of Note DATE: 12/13/18 TIME: 11:34 Assessment/Plan VTE Prophylaxis Risk score (from Ns)>0 risk: 5 SCD applied (from Ns): Yes Pharmacological prophylaxis: NA/contraindicated Pharm contraindication: other (severe anemia) Lines/Catheters IV Catheter Type (from [facility]): PICC Line Central line still needed: Yes Urinary Cath still in place: Yes Reason Cath still needed: other (indicate) Assessment/Plan Hospital Course S: barely verbal, can mouth "hi" and will answers questionson and off, not sure if she's selective or 2/2 cognition Objective: Constitutional: barely verbal, can try to smile, Eyes open spontaneously, No obvious distress Psych: other (unable to assess) Head: normocephalic, atraumatic Eyes: PERRL, No icteric ENMT: trach to vent Respiratory: coarse b/s bilaterally No labored breathing Cardiovascular: bradycardia on tele No murmurs/extra sounds Gastrointestinal: soft, doesn't seem tender, bowel sounds, other (PEG tube noted with no cellulitis or discharge) Genitourinary - Female: nl external genitalia, sequeira to bs drainage Extremities: Chronic msc wasting, 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 Severe sepsis with septic shock 2/2 #2 2. UTI and mignon asp pneumonia 3. altered mental status : resolved? -acute on chronic -seems to be at baseline, continue to monitor 4. Chronic encephalopathy with functional quadriplegia and chronic respiratory failure -Resides in a snf facility -prev CVA 5. Severe hypochromic anemia -transfused 1 unit 12/12/18, will give another unit to optimize 6. Hypernatremic dehydration with mild [place] : improving -free water 200 q4h 7. hypothyroidism -resumed on home synthroid 8. Acute on chronic resp failure -chronically vent dependent via trach -acidotic on arrival, pulm managing vent 9. Chronic Neurogenic dysphagia s/p PEG Dispo: -continue ICU care -all cultures remain negative, but patient was on cefepime prior to admit -ID consult -wean pressors as tolerated -Continue all other measures -further inteventions per course CRITICAL CARE TIME: >35 mins Result Diagram: 12/13/18 0400 12/13/18 0513 Results 24hrs Laboratory Tests Test 12/13/18 04:00 12/13/18 05:00 12/13/18 05:13 12/13/18 07:43 White Blood 12.4 #H Count Red Blood Count 2.73 L Hemoglobin 7.7 L Hematocrit 24.3 L Mean Corpuscular 89.0 Volume Mean Corpuscular 28.2 L Hemoglobin Mean Corpuscular 31.7 L Hemoglobin Nayana nt Red Cell 14.0 Distribution Width Platelet Count 324 Mean Platelet 9.7 Volume Immature 2.100 H Granulocytes % Neutrophils % 84.2 H Lymphocytes % 9.4 L Monocytes % 3.9 Eosinophils % 0.2 Basophils % 0.2 Nucleated Red 0.6 H Blood Cells % Immature 0.260 H Granulocytes # Neutrophils # 10.4 H Lymphocytes # 1.2 Monocytes # 0.5 Eosinophils # 0.0 Basophils # 0.0 Nucleated Red 0.1 H Blood Cells # Lab Scanned BLOOD TRANSFUSIO Report N Sodium Level 147 H Potassium Level 3.2 L Chloride Level 118 H Carbon Dioxide 22 Level Anion Gap 7 Blood Urea 106 H Nitrogen Creatinine 0.97 Est Glomerular > 60 Filtrat Rate mL/min Glucose Level 189 # Calcium Level 8.4 Total Bilirubin 0.1 L Direct Bilirubin 0.00 Indirect 0.1 Bilirubin Aspartate Amino 20 Transf (AST/SGOT ) Alanine 10 L Aminotransferase (ALT/SGPT) Alkaline 80 Phosphatase Total Protein 7.4 Albumin 2.8 L Globulin 4.60 H Albumin/Globulin 0.60 Ratio Blood Gas Blood arterial Specimen Source Arterial Blood 12/13/2018 8:22:35 Date Drawn AM Arterial Blood 7.289 *L pH (Temp corrected) Arterial Blood 42.6 pCO2 (Temp correct) Arterial Blood 113.5 H pO2 (Temp corrected) Arterial Blood 20.0 L HCO3 Arterial Blood -6.2 L Base Excess Arterial Blood 97.9 Oxygen Saturatio n Robert Test ACCEPTAB Arterial Blood Right Radial Gas Puncture Site Arterial 0.3 Blood Carboxyhem oglobin Arterial Blood 0.2 Methemoglobin Blood Gas A-a O2 50.3 H Differential Oxyhemoglobin 97.4 Percent Blood Gas 37.0 Temperature Blood Gas NASAL CANNULA Modality FiO2 30.0 Blood Gas [id number] SOTO Critical Value Read Back Blood Gas TM Notified Whom Blood Gas 12/13/2018 8:48:46 Notified Time AM Exam/Review of Systems Exam Vitals Vital Signs Date Temp Pulse Resp B/P (MAP) Pulse Ox O2 O2 Flow FiO2 Time Delivery Rate 12/13/18 48 19 94/62 (73) 100 11:15 12/13/18 Nasal 11:00 Cannula 12/13/18 97.5 08:00 12/13/18 3.0 04:15 Intake and Output 12/12/18 12/12/18 12/13/18 1515:00 23:00 07:00 IntakeIntake Total 742 ml 1161 ml 1122.538 ml OutputOutput Total 510 ml 440 ml 390 ml BalanceBalance 232 ml 721 ml 732.538 ml Results Results 24hrs Laboratory Tests Test 12/13/18 04:00 12/13/18 05:00 12/13/18 05:13 12/13/18 07:43 White Blood 12.4 #H Count Red Blood Count 2.73 L Hemoglobin 7.7 L Hematocrit 24.3 L Mean Corpuscular 89.0 Volume Mean Corpuscular 28.2 L Hemoglobin Mean Corpuscular 31.7 L Hemoglobin Nayana nt Red Cell 14.0 Distribution Width Platelet Count 324 Mean Platelet 9.7 Volume Immature 2.100 H Granulocytes % Neutrophils % 84.2 H Lymphocytes % 9.4 L Monocytes % 3.9 Eosinophils % 0.2 Basophils % 0.2 Nucleated Red 0.6 H Blood Cells % Immature 0.260 H Granulocytes # Neutrophils # 10.4 H Lymphocytes # 1.2 Monocytes # 0.5 Eosinophils # 0.0 Basophils # 0.0 Nucleated Red 0.1 H Blood Cells # Lab Scanned BLOOD TRANSFUSIO Report N Sodium Level 147 H Potassium Level 3.2 L Chloride Level 118 H Carbon Dioxide 22 Level Anion Gap 7 Blood Urea 106 H Nitrogen Creatinine 0.97 Est Glomerular > 60 Filtrat Rate mL/min Glucose Level 189 # Calcium Level 8.4 Total Bilirubin 0.1 L Direct Bilirubin 0.00 Indirect 0.1 Bilirubin Aspartate Amino 20 Transf (AST/SGOT ) Alanine 10 L Aminotransferase (ALT/SGPT) Alkaline 80 Phosphatase Total Protein 7.4 Albumin 2.8 L Globulin 4.60 H Albumin/Globulin 0.60 Ratio Blood Gas Blood arterial Specimen Source Arterial Blood 12/13/2018 8:22:35 Date Drawn AM Arterial Blood 7.289 *L pH (Temp corrected) Arterial Blood 42.6 pCO2 (Temp correct) Arterial Blood 113.5 H pO2 (Temp corrected) Arterial Blood 20.0 L HCO3 Arterial Blood -6.2 L Base Excess Arterial Blood 97.9 Oxygen Saturatio n Robert Test ACCEPTAB Arterial Blood Right Radial Gas Puncture Site Arterial 0.3 Blood Carboxyhem oglobin Arterial Blood 0.2 Methemoglobin Blood Gas A-a O2 50.3 H Differential Oxyhemoglobin 97.4 Percent Blood Gas 37.0 Temperature Blood Gas NASAL CANNULA Modality FiO2 30.0 Blood Gas [id number] SOTO Critical Value Read Back Blood Gas TM Notified Whom Blood Gas 12/13/2018 8:48:46 Notified Time AM Imaging Imaging PROCEDURE: XR Chest. CLINICAL INDICATION: Pneumonia TECHNIQUE: A single AP view of the chest was obtained. COMPARISON: DR GUEVARA CHEST 12/12/2018; CHEST 12/11/2018 FINDINGS: A tracheostomy tube is in place. There is a right upper extremity PICC line with tip in the mid SVC. There is mild diffuse prominence of the interstitial markings. There are right basilar interstitial opacities with small right pleural effusion. No pneumothorax is seen. The cardiomediastinal silhouette is mildly enlarged. Calcifications are seen within the aortic arch. The osseous structures demonstrate senescent changes. There are postsurgical changes from inferior cervical fusion, partially imaged. IMPRESSION: 1. Prominent interstitial markings suggesting mild interstitial edema, mildly increased when compared to the prior examination. 2. Right basilar interstitial opacities may also reflect edema or pneumonia. Findings are also mildly increased. 3. Small right pleural effusion. 4. Mild cardiomegaly and aortic atherosclerosis. 5. Tubes and lines, as described above. RPTAT: HH .Karolyn Chu MD, Date Time Electronically viewed and signed by .Karolyn Chu MD, on 12/13/2018 09:30 .G/ CC: KARLA MAJOR [id number] Medications Medication Current Medications IV Flush (NS 3 ml) 3 ml PER PROTOCOL IV ; Start 12/11/18 at 19:00 Ondansetron HCl (Zofran Inj) 4 mg Q6H PRN IV NAUSEA/VOMITING; Start 12/11/18 at 19:00 Acetaminophen (Tylenol Tab) 650 mg Q6H PRN PO .PAIN 1-3 OR TEMP; Start 12/11/18 at 19:00 Acetaminophen/ Hydrocodone Bitart ([place] (5/325)) 1 tab Q6H PRN PO .MOD PAIN 4- 6; Start 12/11/18 at 19:00 Morphine Sulfate (morphine) 2 mg Q4H PRN IV .SEVERE PAIN 7-10; Start 12/11/18 at 19:00 Acetaminophen (Tylenol Tab) 650 mg Q6H PRN GTB MILD PAIN LEVEL 1-3; Start 12/11/18 at 19:00 Ascorbic Acid (Vitamin C) 500 mg DAILY GTB Last administered on 12/13/18at 08:19; Admin Dose 500 MG; Start 12/12/18 at 09:00 Clonidine (Catapres) 0.1 mg Q6H PRN GTB FOR SBP>160; Start 12/11/18 at 19:00 Gabapentin (Neurontin) 300 mg QHS GTB Last administered on 12/12/18at 20:58; Admin Dose 300 MG; Start 12/11/18 at 21:00 Levothyroxine Sodium (Synthroid) 75 mcg BEFORE BREAKFAST GTB Last administered on 12/13/18at 08:19; Admin Dose 75 MCG; Start 12/12/18 at 07:00 Simethicone (Mylicon) 80 mg Q6H GTB Last administered on 12/13/18at 08:19; Admin Dose 80 MG; Start 12/11/18 at 19:00 Tramadol HCl (Ultram) 50 mg Q6H PRN GTB PAIN 4-10/10; Start 12/11/18 at 19:00 Albuterol/ Ipratropium (Duoneb) 3 ml Q4H RESP THERAPY PRN HHN SHORTNESS OF BREATH; Start 12/11/18 at 19:00 Piperacillin Sod/ Tazobactam Sod 100 ml @ 200 mls/hr Q6 IVPB Last administered on 12/13/18at 05:29; Admin Dose 200 MLS/HR; Start 12/12/18 at 00:00 Norepinephrine 250 ml @ 1.875 mls/ hr TITRATE IV Last administered on 12/12/18at 06:14; Admin Dose 9.375 MLS/HR; Start 12/12/18 at 05:00 Dextrose 1,000 ml @ 125 mls/hr Q8H IV Last administered on 12/13/18at 05:18; Admin Dose 125 MLS/HR; Start 12/12/18 at 09:30 IV Flush (NS 10 ml) 10 ml PRN PRN IV IV PROTOCOL; Start 12/12/18 at 17:00 JOSE J DEMPSEY Dec 13, 2018 11:44
[2018-12-13] MEDS ORDERED: morphine LIQ (10 MG/5 ML) CUP GTB PRN (12:00)
[2018-12-13] MEDS: POTASSIUM CHLORIDE 100 ML IVPB SCH ×3 (14:06→19:57)
[2018-12-13] MEDS: DEXTROSE 5%-0.225% NACL 1,000 ML IV SCH ×2 (14:20→21:30)
--- NOTE | 2018-12-13 15:49 | CONS ---
Assessment/Plan Assessment/Plan Hospital Course (Demo Recall) 68 yo with septic shock and improved bp, normal LV function on limited echo. Impression: Septic shock, improved Sinus bradycardia with first degree av block, with occasional ectopic beats on the monitor Anemia of chronic disease Hypernatremia Recommendations: Continue supportive care Wean pressors Free H2O for hypernatremia. Consultation Date/Type/Reason Admit Date/Time Dec 11, 2018 at 20:30 Date of Consultation: Dec 13, 2018 Type of Consult Cardiology Reason for Consultation septic shock Requesting Provider: JOSE J DEMPSEY Date/Time of Note DATE: 12/13/18 TIME: 15:40 Hx of Present Illness 68 yo with functional quadriplegia, trach in place with cap, presented 12/11/18 with altered mental status, treated for aspiration pna and uti. At present mental status back to baseline but she has required levophed. She is verbal, on my visit is able to say "I can't breathe" and has coarse breath sounds. She denies pain to me. Brief limited echo at bedside demonstrates grossly normal LV systolic function. Patient cannot provide meaningful history beyond answering some simple questions. Subjective hx not possible: pt non-verbal Past Medical History Medical History: congestive heart failure, other (per snf notes - dysphagia, cervical disc disorder, trach, chr resp failure, functional quadriplegia, chronic diastolic heart failure) Home Meds Reported Medications Vancomycin HCl in Dextrose 5 % (Vancomycin 1.5 Gram/250 ml-D5w) 1.5 Gm/250 Ml Plast..bag, 1.5 GM IV Q48H FOR 7 DAYS,END DATE 12/17/18 12/11/18 Tuberculin,Purif.prot.deriv. (Tubersol) 5 Tub Unit/0.1 Ml Vial, 5 TUB ID QHS, VIAL EVERY 365 DAY. 12/11/18 Tramadol Hcl* (Ultram*) 50 Mg Tablet, 50 MG GTB Q6H PRN for PAIN -06/22, TAB 12/11/18 Simethicone* (Mylicon*) 80 Mg Tab, 80 MG GTB Q6H, TAB 12/11/18 Protein Supplement (Promod) 946 Ml Liquid, 30 ML GTB TID 12/11/18 Multivitamin/Minerals* (Multivitamin w/Min* Liq) 9 Mg/15 Ml Liquid, 30 ML GTB DAILY, ML 12/11/18 Mirtazapine* (Mirtazapine*) 7.5 Mg Tablet, 7.5 MG GTB HS, TAB 12/11/18 Metformin Hcl* (Metformin Hcl*) 500 Mg Tablet, 500 MG GTB WITH BREAKFAST DINNE, #60 TAB 12/11/18 Levothyroxine Sodium* (Levothyroxine Sodium*) 75 Mcg Tablet, 75 MCG GTB BEFORE BREAKFAST, #30 TAB 12/11/18 Gabapentin* (Gabapentin*) 300 Mg Capsule, 300 MG GTB QHS, #60 CAP 12/11/18 Ipratropium-Albuterol (Ipratropium-Albuterol) 0.5-3 Mg/3 Ml Ampul.neb, 3 ML INHALATION Q6 PRN for NEEDED, #30 VIAL 12/11/18 Clonidine Hcl* (Clonidine Hcl*) 0.1 Mg Tab, 0.1 MG GTB Q6H PRN for FOR SBP>160, TAB 12/11/18 Cefepime HCl (Cefepime HCl) 2 Gm Vial, 2 GM IV* BID, VIAL FOR 7 DAYS, END DATE 12/14/18 12/11/18 Ascorbic Acid (Vitamin C) 500 Mg Tab, 500 MG GTB DAILY, TAB 12/11/18 Acetaminophen* (Acetaminophen*) 325 Mg Tablet, 650 MG GTB Q6H PRN for MILD PAIN LEVEL 1-3, #30 TAB AND FEVER>101F 12/11/18 Medications Current Medications IV Flush (NS 3 ml) 3 ml PER PROTOCOL IV ; Start 12/11/18 at 19:00 Ondansetron HCl (Zofran Inj) 4 mg Q6H PRN IV NAUSEA/VOMITING; Start 12/11/18 at 19:00 Acetaminophen (Tylenol Tab) 650 mg Q6H PRN PO .PAIN 1-3 OR TEMP; Start 12/11/18 at 19:00 Acetaminophen/ Hydrocodone Bitart ([place] (5/325)) 1 tab Q6H PRN PO .MOD PAIN 4- 6; Start 12/11/18 at 19:00 Acetaminophen (Tylenol Tab) 650 mg Q6H PRN GTB MILD PAIN LEVEL 1-3; Start 12/11/18 at 19:00 Ascorbic Acid (Vitamin C) 500 mg DAILY GTB Last administered on 12/13/18 08:19; Admin Dose 500 MG; Start 12/12/18 at 09:00 Clonidine (Catapres) 0.1 mg Q6H PRN GTB FOR SBP>160; Start 12/11/18 at 19:00 Gabapentin (Neurontin) 300 mg QHS GTB Last administered on 12/12/18 20:58; Admin Dose 300 MG; Start 12/11/18 at 21:00 Levothyroxine Sodium (Synthroid) 75 mcg BEFORE BREAKFAST GTB Last administered on 12/13/18 08:19; Admin Dose 75 MCG; Start 12/12/18 at 07:00 Simethicone (Mylicon) 80 mg Q6H GTB Last administered on 12/13/18 13:00; Admin Dose 80 MG; Start 12/11/18 at 19:00 Albuterol/ Ipratropium (Duoneb) 3 ml Q4H RESP THERAPY PRN HHN SHORTNESS OF BREATH; Start 12/11/18 at 19:00 Piperacillin Sod/ Tazobactam Sod 100 ml @ 200 mls/hr Q6 IVPB Last administered on 12/13/18 14:06; Admin Dose 200 MLS/HR; Start 12/12/18 at 00:00 Norepinephrine 250 ml @ 1.875 mls/ hr TITRATE IV Last administered on 12/12/18 06:14; Admin Dose 9.375 MLS/HR; Start 12/12/18 at 05:00 IV Flush (NS 10 ml) 10 ml PRN PRN IV IV PROTOCOL; Start 12/12/18 at 17:00 Morphine Sulfate (morphine) 6 mg Q4H PRN GTB .SEVERE PAIN 7-10; Start 12/13/18 at 12:00 Potassium Chloride 100 ml @ 50 mls/hr Q2H IVPB Last administered on 12/13/18 14:06; Admin Dose 50 MLS/HR; Start 12/13/18 at 13:00; Stop 12/13/18 at 18:59 Dextrose/Sodium Chloride 1,000 ml @ 125 mls/hr Q8H IV Last administered on 12/13/18 14:20; Admin Dose 125 MLS/HR; Start 12/13/18 at 12:30 Mupirocin (Bactroban) 1 applic BID TOP ; Start 12/13/18 at 21:00; Stop 12/20/18 at 09:01 Allergies: Coded Allergies: benazepril (Unverified Allergy, Unknown, 12/11/18) Past Surgical History Past Surgical Hx: other (unknown orthopedic surgery) Social History Alcohol Use: none Smoking Status: Unknown if ever smoked Drug Use: none Exam/Review of Systems Vital Signs Vitals Vital Signs Date Temp Pulse Resp B/P (MAP) Pulse Ox O2 O2 Flow FiO2 Time Delivery Rate 12/13/18 63 18 111/64 93 13:45 (80) 12/13/18 Nasal 13:00 Cannula 12/13/18 97.4 12:00 12/13/18 3.0 04:15 Intake and Output 12/12/18 12/12/18 12/13/18 1515:00 23:00 07:00 IntakeIntake Total 742 ml 1161 ml 1122.538 ml OutputOutput Total 510 ml 440 ml 390 ml BalanceBalance 232 ml 721 ml 732.538 ml Exam Constitutional: alert, distress Psych: anxiety Head: normocephalic, atraumatic Eyes: nl conjunctiva, nl lids ENMT: nl external ears & nose Neck: other (tracheostomy); No jvd, No bruits Respiratory: congested cough, crackles/rales Cardiovascular: regular rate and rhythm, other (distant sounds) Gastrointestinal: soft, nl liver, spleen, non-tender Musculoskeletal: nl extremities to inspection Extremities: edema (mild at both ankles), pitting pedal edema Neurological: nl speech Skin: nl turgor Labs Result Diagram: 12/13/18 0400 12/13/18 0513 Results 24hrs Laboratory Tests Test 12/13/18 04:00 12/13/18 05:00 12/13/18 05:13 12/13/18 07:43 White Blood 12.4 #H Count Red Blood Count 2.73 L Hemoglobin 7.7 L Hematocrit 24.3 L Mean Corpuscular 89.0 Volume Mean Corpuscular 28.2 L Hemoglobin Mean Corpuscular 31.7 L Hemoglobin Nayana nt Red Cell 14.0 Distribution Width Platelet Count 324 Mean Platelet 9.7 Volume Immature 2.100 H Granulocytes % Neutrophils % 84.2 H Lymphocytes % 9.4 L Monocytes % 3.9 Eosinophils % 0.2 Basophils % 0.2 Nucleated Red 0.6 H Blood Cells % Immature 0.260 H Granulocytes # Neutrophils # 10.4 H Lymphocytes # 1.2 Monocytes # 0.5 Eosinophils # 0.0 Basophils # 0.0 Nucleated Red 0.1 H Blood Cells # Magnesium Level 2.1 Thyroid 3.730 Stimulating Hormone (TSH) Lab Scanned BLOOD TRANSFUSIO Report N Sodium Level 147 H Potassium Level 3.2 L Chloride Level 118 H Carbon Dioxide 22 Level Anion Gap 7 Blood Urea 106 H Nitrogen Creatinine 0.97 Est Glomerular > 60 Filtrat Rate mL/min Glucose Level 189 # Calcium Level 8.4 Total Bilirubin 0.1 L Direct Bilirubin 0.00 Indirect 0.1 Bilirubin Aspartate Amino 20 Transf (AST/SGOT ) Alanine 10 L Aminotransferase (ALT/SGPT) Alkaline 80 Phosphatase Total Protein 7.4 Albumin 2.8 L Globulin 4.60 H Albumin/Globulin 0.60 Ratio Blood Gas Blood arterial Specimen Source Arterial Blood 12/13/2018 8:22:35 Date Drawn AM Arterial Blood 7.289 *L pH (Temp corrected) Arterial Blood 42.6 pCO2 (Temp correct) Arterial Blood 113.5 H pO2 (Temp corrected) Arterial Blood 20.0 L HCO3 Arterial Blood -6.2 L Base Excess Arterial Blood 97.9 Oxygen Saturatio n Robert Test ACCEPTAB Arterial Blood Right Radial Gas Puncture Site Arterial 0.3 Blood Carboxyhem oglobin Arterial Blood 0.2 Methemoglobin Blood Gas A-a O2 50.3 H Differential Oxyhemoglobin 97.4 Percent Blood Gas 37.0 Temperature Blood Gas NASAL CANNULA Modality FiO2 30.0 Blood Gas [id number] SOTO Critical Value Read Back Blood Gas TM Notified Whom Blood Gas 12/13/2018 8:48:46 Notified Time AM Imaging Imaging EKG on presentation demonstrates sinus bradycardia with first degree av block Medications Medications Current Medications IV Flush (NS 3 ml) 3 ml PER PROTOCOL IV ; Start 12/11/18 at 19:00 Ondansetron HCl (Zofran Inj) 4 mg Q6H PRN IV NAUSEA/VOMITING; Start 12/11/18 at 19:00 Acetaminophen (Tylenol Tab) 650 mg Q6H PRN PO .PAIN 1-3 OR TEMP; Start 12/11/18 at 19:00 Acetaminophen/ Hydrocodone Bitart ([place] (5/325)) 1 tab Q6H PRN PO .MOD PAIN 4- 6; Start 12/11/18 at 19:00 Acetaminophen (Tylenol Tab) 650 mg Q6H PRN GTB MILD PAIN LEVEL 1-3; Start 12/11/18 at 19:00 Ascorbic Acid (Vitamin C) 500 mg DAILY GTB Last administered on 12/13/18at 08:19; Admin Dose 500 MG; Start 12/12/18 at 09:00 Clonidine (Catapres) 0.1 mg Q6H PRN GTB FOR SBP>160; Start 12/11/18 at 19:00 Gabapentin (Neurontin) 300 mg QHS GTB Last administered on 12/12/18at 20:58; Admin Dose 300 MG; Start 12/11/18 at 21:00 Levothyroxine Sodium (Synthroid) 75 mcg BEFORE BREAKFAST GTB Last administered on 12/13/18at 08:19; Admin Dose 75 MCG; Start 12/12/18 at 07:00 Simethicone (Mylicon) 80 mg Q6H GTB Last administered on 12/13/18at 13:00; Admin Dose 80 MG; Start 12/11/18 at 19:00 Albuterol/ Ipratropium (Duoneb) 3 ml Q4H RESP THERAPY PRN HHN SHORTNESS OF BREATH; Start 12/11/18 at 19:00 Piperacillin Sod/ Tazobactam Sod 100 ml @ 200 mls/hr Q6 IVPB Last administered on 12/13/18at 14:06; Admin Dose 200 MLS/HR; Start 12/12/18 at 00:00 Norepinephrine 250 ml @ 1.875 mls/ hr TITRATE IV Last administered on 12/12/18at 06:14; Admin Dose 9.375 MLS/HR; Start 12/12/18 at 05:00 IV Flush (NS 10 ml) 10 ml PRN PRN IV IV PROTOCOL; Start 12/12/18 at 17:00 Morphine Sulfate (morphine) 6 mg Q4H PRN GTB .SEVERE PAIN 7-10; Start 12/13/18 at 12:00 Potassium Chloride 100 ml @ 50 mls/hr Q2H IVPB Last administered on 12/13/18at 14:06; Admin Dose 50 MLS/HR; Start 12/13/18 at 13:00; Stop 12/13/18 at 18:59 Dextrose/Sodium Chloride 1,000 ml @ 125 mls/hr Q8H IV Last administered on 12/13/18at 14:20; Admin Dose 125 MLS/HR; Start 12/13/18 at 12:30 Mupirocin (Bactroban) 1 applic BID TOP ; Start 12/13/18 at 21:00; Stop 12/20/18 at 09:01 EDY BOSS Dec 13, 2018 15:49
--- NOTE | 2018-12-13 16:00 | CONS ---
DATE OF ADMISSION: 12/11/2018 DATE OF CONSULTATION: 12/13/2018 TYPE OF CONSULTATION: Infectious Disease. REASON FOR CONSULTATION: Antibiotic management. HISTORY OF PRESENT ILLNESS: Marimar Wang is a 68-year-old female who was admitted from [facility] with altered mental status. She is on antibiotics for UTI. History was limited on admission. Her past problems include: 1. Tracheostomy. 2. G-tube placement. 3. Cervical disk disorder with myelopathy. 4. Chronic respiratory failure. 5. Diastolic congestive heart failure. 6. Hypertension. 7. History of DVT of the right lower extremity. 8. Hypothyroidism. On admission, white count was 8.2, H and H 7.2 and 22.5, platelet count 376,000. BUN and creatinine 147/1.07, consistent with some degree of renal failure or insufficiency. Her urinalysis was cloudy. She has 3+ leukocyte esterase, greater than 182 white cells per high powered field. The patient was started on vancomycin and cefepime. Chest x-ray showed patchy opacity in the right lung concerning for aspiration pneumonia in the setting of reported sepsis. Patient has a tracheostomy. She has a f usion in the cervical, thoracic spine area. A PICC line was inserted on the first, right-sided PICC line with tip ending in the distal SVC and tracheostomy tube. She has thoracic hardware, surgical sk in pat. Patchy opacification in the right lower lung which may represent infiltrate, mild pulmon bruna vascular congestion, left basilar atelectasis. Chest x-ray today prominent interstitial markings suggesting mild interstitial edema, right basilar interstitial opacities as before. There is a PICC line in the right upper extremity, tracheostomy tube. Her blood cultures are negative. Urine cultu res are negative. Influenza A and B are negative. The patient was begun on Zosyn. She is also on n orepinephrine to titrate her blood pressure. She was seen in consultation by Dr. Apodaca who notes chr onic respiratory failure, maintained on tracheostomy, clinically improved in all parameters. History of neuropathy, hypothyroidism, encephalopathy, bilateral pneumonia, more pronounced in the right low er lobe. PHYSICAL EXAMINATION: GENERAL: She has a trach and PICC line. SKIN: Without generalized rash. HEENT: Within normal limits. NECK: Tracheostomy in place. LYMPH NODES: None palpable. CHEST: Decreased breath sounds at the bases. HEART: Without murmur or gallop. ABDOMEN: Soft, nontender, without organosplenomegaly or masses. She has a G-tube in place. EXTREMITIES: Without cyanosis, clubbing, or edema. RECTAL AND GENITAL: Deferred. NEUROLOGIC: No focal neurological abnormalities. She is barely verbal. She has functional quadriplegia, chronic respiratory failure with altered ment al status. She has UTI, bilateral aspiration pneumonia. She was on cefepime prior to admission. Angel nugent is currently on Zosyn. We will continue her on her current therapy and observe. I will dictate my findings to the hospitalist, Dr. Apodaca. Dictated By: JOANNE FLORES MD, JD/KYLE Conf#: [id number] DID#: [id number] CC: CRUZ GORDILLO MD;*EndCC*
--- NOTE | 2018-12-13 19:33 | RADRPT ---
Echocardiogram Report Patient Name: JOSH REISPatient ID: [id number] : 1950 (68y 7m)Study Date: 12/13/2018 3:24:03 PM Gender: FAccession #: [id number] Tech: Aquiles Barros [facility] Location: [address] Ref.Physician: BRUNA MCFADDEN Height(Cm): BSA: Weight(Kg): Quality: Technically Difficult StudyAccount #: Procedures: Echocardiographic Report: Transthoracic echocardiogram with complete 2D, M-Mode, and doppler examination. Indications: Atrial Fibrillation. Measurements: 2D/M Mode Doppler Measurement Value Normal Range Measurement Value Normal Range LVIDd 2D 5.2 [ 3.8 - 5.2 ] cm TR Peak [place] 3.1 [ 100.0 - 280.0 ] cm/sec LVIDs 2D 3.3 [ 2.2 - 3.5 ] cm TR Peak PG 38.0 mmHg IVSd 2D 1.0 [ 0.6 - 0.9 ] cm AoR Diam 2D 2.2 [ 2.3 - 3.1 ] cm LA Dimen 2D 3.9 [ 2.7 - 3.8 ] cm Findings: Left Ventricle: Normal left ventricular systolic function. Normal left ventricular cavity size. Left ventricular wall thickness upper limits of normal. Ejection fraction is visually estimated at 55 %. Right Ventricle: Not well visualized. Left Atrium: The left atrium is normal in size. Right Atrium: Not well visualized. Mitral Valve: Mild mitral leaflet calcification. Mild mitral annular calcification. Trace mitral regurgitation. Aortic Valve: Aortic valve not well visualized. Aortic cusps appear mildly calcified. Tricuspid Valve: Normal appearance of the tricuspid valve. Estimated peak PA systolic pressure 38 mmHg. There is mild tricuspid regurgitation. Pulmonic Valve: Pulmonic valve not well visualized. Pericardium: Not well visualized. Aorta: Normal aortic root. IVC: The IVC is not well visualized. Conclusions: Technically difficult study due to lack of patient cooperation. Normal left ventricular systolic function. Mild tricuspid regurgitation and at least mild pulmonary hypertension. Trace mitral regurgitation. Electronically Signed By: Bruna Mcfadden 2018-12-13 19:32:12 PDT
[2018-12-13] MEDS: GABAPENTIN 300 MG CAP GTB SCH (20:02)
[2018-12-13] MEDS: MUPIROCIN 2% 22 GM OINT TOP SCH (20:04)
[2018-12-13] MEDS: NORepinephrine 8MG/250 ML (PMX 250 ML IV SCH (21:50)
[2018-12-14] VITALS (77 sets, daily range): BP systolic 76–122; BP diastolic 51–75; PULSE 55–73; RESP 10–28
[2018-12-14] MEDS: PIPER-TAZO 3.375 GM IV (PMX) 100 ML IVPB SCH ×4 (00:32→18:02)
[2018-12-14] MEDS: DEXTROSE 5%-0.225% NACL 1,000 ML IV SCH ×2 (05:23→16:29)
[2018-12-14] MEDS ORDERED: MAGNESIUM SULFATE 2 GM/50 ML 50 ML IVPB ONE (06:30)
[2018-12-14] MEDS: POTASSIUM CHLORIDE 100 ML IVPB SCH ×2 (06:36→08:26)
[2018-12-14] MEDS: ASCORBIC ACID 500 MG TAB GTB SCH (08:11)
[2018-12-14] MEDS: MUPIROCIN 2% 22 GM OINT TOP SCH ×3 (08:12→20:39)
[2018-12-14] MEDS: LEVOTHYROXINE 75 MCG TAB GTB SCH (08:12)
--- NOTE | 2018-12-14 08:55 | CONS ---
Assessment/Plan Assessment/Plan Assessment/Plan (Daily) Chest x-ray from today is pending. Patient is currently on Levophed at 3 mics per minute. Tube feeding via G-tube. Assessment recommendations; 1. Patient with history of chronic encephalopathy and functional quadriplegia due to C-spine surgery admitted for sepsis due to bilateral pneumonia and UTI. Currently on appropriate antimicrobial regimen. 2. History of right upper extremity DVT. 3. Chronic dysphagia, status post G-tube placement in the past. 4. Hypernatremia with interval improvement. 5. Anemia. 6. History of hypothyroidism. Continue current supportive care. Further recommendations once chest x-ray is obtained. Consultation Date/Type/Reason Admit Date/Time Dec 11, 2018 at 20:30 Initial Consult Date 12/12/18 Type of Consult Pulmonary/critical care Patient is a 68-year-old lady who was admitted to the hospital transferred from intermediate with hypotension as well as altered mental status. Patient has been diagnosed with bilateral pneumonia as well as severe prerenal azotemia with hyponatremia as well as anemia. The patient has improved after being admitted with significant improvement in mental status still requiring low-dose Levophed. The patient has been adequately fluid resuscitated and also getting blood transfusion. By the time I saw her in ICU, patient is on her tracheostomy with Applied and is appropriately responsive. Patient did not appear to be in any distress. Past medical history; 1. History of C-spine surgery with functional quadriplegia. 2. History of G-tube placement. 3. Possibly chronic encephalopathy. 4. Chronic respiratory failure, patient however doing fairly well on tracheostomy with capping. Medications; reviewed. Patient is currently on Levophed 2 mics per minute. Allergies; as outlined above. Social history; noncontributory. Family history; not available. Occupational history; not available. Review of systems; not able to be obtained. General exam; elderly woman, awake and fairly responsive. Currently in no distress. Requesting Provider: JOSE J DEMPSEY Date/Time of Note DATE: 12/14/18 TIME: 08:52 24 HR Interval Summary Free Text/Dictation Patient's condition remains tenuous. He still requiring low-dose pressor support. General exam; elderly woman, awake and readily arousable but still exhibiting lethargic. Not able to communicate. Exam/Review of Systems Exam Vitals Vital Signs Date Temp Pulse Resp B/P (MAP) Pulse Ox O2 O2 Flow FiO2 Time Delivery Rate 12/14/18 61 15 97/62 (74) 98 Nasal 3.0 08:30 Cannula 12/14/18 97.0 07:30 Intake and Output 12/13/18 12/13/18 12/14/18 1414:59 22:59 06:59 IntakeIntake Total 1433.128 ml 2220.125 ml 1998.438 ml OutputOutput Total 425 ml 500 ml 590 ml BalanceBalance 1008.128 ml 1720.125 ml 1408.438 ml Exam H EENT exam; supple neck, no JVD. No lymphadenopathy. Midline trachea. No thyromegaly. Tracheostomy in. Capped. Patient has fair dentition. Chest exam; diminished breath sounds bilaterally. S1-S2 audible, no murmurs. Regular rhythm. Abdomen exam; soft, G-tube in place. No organomegaly. Bowel sounds audible. Extremity exam; no peripheral edema. [employer] exam; patient is awake but exhibiting profound weakness. Results Result Diagram: 12/14/18 0400 12/14/18 0400 Results 24hrs Laboratory Tests Test 12/14/18 04:00 12/14/18 05:00 White Blood Count 9.8 # Red Blood Count 3.19 L Hemoglobin 9.0 L Hematocrit 28.5 L Mean Corpuscular Volume 89.3 Mean Corpuscular Hemoglobin 28.2 L Mean Corpuscular Hemoglobin Concent 31.6 L Red Cell Distribution Width 15.0 H Platelet Count 279 Mean Platelet Volume 9.7 Immature Granulocytes % 2.000 H Neutrophils % 77.5 H Lymphocytes % 13.0 L Monocytes % 6.8 Eosinophils % 0.5 Basophils % 0.2 Nucleated Red Blood Cells % 1.1 H Immature Granulocytes # 0.200 H Neutrophils # 7.6 H Lymphocytes # 1.3 Monocytes # 0.7 Eosinophils # 0.1 Basophils # 0.0 Nucleated Red Blood Cells # 0.1 H Sodium Level 144 Potassium Level 3.8 Chloride Level 115 H Carbon Dioxide Level 22 Anion Gap 7 Blood Urea Nitrogen 81 H Creatinine 0.84 Est Glomerular Filtrat Rate mL/min > 60 Glucose Level 177 Calcium Level 8.3 L Phosphorus Level 2.5 Magnesium Level 1.6 L Lab Scanned Report BLOOD TRANSFUSION Medications Medication Current Medications IV Flush (NS 3 ml) 3 ml PER PROTOCOL IV ; Start 3/31/19 at 19:00 Ondansetron HCl (Zofran Inj) 4 mg Q6H PRN IV NAUSEA/VOMITING; Start 12/11/18 at 19:00 Acetaminophen (Tylenol Tab) 650 mg Q6H PRN PO .PAIN 1-3 OR TEMP; Start 12/11/18 at 19:00 Acetaminophen/ Hydrocodone Bitart ([place] (5/325)) 1 tab Q6H PRN PO .MOD PAIN 4- 6; Start 12/11/18 at 19:00 Acetaminophen (Tylenol Tab) 650 mg Q6H PRN GTB MILD PAIN LEVEL 1-3; Start 12/11/18 at 19:00 Ascorbic Acid (Vitamin C) 500 mg DAILY GTB Last administered on 12/14/18at 08:11; Admin Dose 500 MG; Start 12/12/18 at 09:00 Clonidine (Catapres) 0.1 mg Q6H PRN GTB FOR SBP>160; Start 12/11/18 at 19:00 Gabapentin (Neurontin) 300 mg QHS GTB Last administered on 12/13/18at 20:02; Admin Dose 300 MG; Start 12/11/18 at 21:00 Levothyroxine Sodium (Synthroid) 75 mcg BEFORE BREAKFAST GTB Last administered on 12/14/18 08:12; Admin Dose 75 MCG; Start 12/12/18 at 07:00 Simethicone (Mylicon) 80 mg Q6H GTB Last administered on 12/14/18 08:11; Admin Dose 80 MG; Start 12/11/18 at 19:00 Albuterol/ Ipratropium (Duoneb) 3 ml Q4H RESP THERAPY PRN HHN SHORTNESS OF BREATH; Start 12/11/18 at 19:00 Piperacillin Sod/ Tazobactam Sod 100 ml @ 200 mls/hr Q6 IVPB Last administered on 12/14/18at 05:24; Admin Dose 200 MLS/HR; Start 12/12/18 at 00:00 Norepinephrine 250 ml @ 1.875 mls/ hr TITRATE IV Last administered on 12/13/18at 21:50; Admin Dose 3.75 MLS/HR; Start 12/12/18 at 05:00 IV Flush (NS 10 ml) 10 ml PRN PRN IV IV PROTOCOL; Start 12/12/18 at 17:00 Morphine Sulfate (morphine) 6 mg Q4H PRN GTB .SEVERE PAIN 7-10; Start 12/13/18 at 12:00 Dextrose/Sodium Chloride 1,000 ml @ 125 mls/hr Q8H IV Last administered on 12/14/18at 05:23; Admin Dose 125 MLS/HR; Start 12/13/18 at 12:30 Mupirocin (Bactroban) 1 applic BID TOP Last administered on 12/14/18at 08:12; Admin Dose 1 APPLIC; Start 12/13/18 at 21:00; Stop 12/20/18 at 09:01 Potassium Chloride 100 ml @ 50 mls/hr Q2H IVPB Last administered on 12/14/18at 08:26; Admin Dose 50 MLS/HR; Start 12/14/18 at 06:30; Stop 12/14/18 at 10:29 KARLA MAJOR Dec 14, 2018 08:55
[2018-12-14] MEDS: ALBUMIN HUMAN 25% 100 ML IV SCH ×2 (09:54→17:04)
--- NOTE | 2018-12-14 10:15 | PN ---
Date/Time of Note Date/Time of Note DATE: 12/14/18 TIME: 10:14 Assessment/Plan VTE Prophylaxis Risk score (from Ns)>0 risk: 10 SCD applied (from Ns): Yes Pharmacological prophylaxis: NA/contraindicated Pharm contraindication: other (severe anemia ) Lines/Catheters IV C[facility]ter Type (from [facility] PICC Line Central line still needed: Yes Urinary Cath still in place: No Assessment/Plan Hospital Course S: remains able to verbalize "hi" and follow simple commands Objective: Constitutional: barely verbal, can try to smile, Eyes open spontaneously, No obvious distress Psych: other (unable to assess) Head: normocephalic, atraumatic Eyes: PERRL, No icteric ENMT: trach to vent Respiratory: coarse b/s bilaterally No labored breathing Cardiovascular: bradycardia on tele No murmurs/extra sounds Gastrointestinal: soft, doesn't seem tender, bowel sounds, other (PEG tube noted with no cellulitis or discharge) Genitourinary - Female: nl external genitalia, sequeira to bs drainage Extremities: Chronic msc wasting, 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, patient has a history of functional quadriplegia, chronic respiratory failure with trach who presented from the intermediate with altered mental status currently managed as follows: 1. Severe sepsis with septic shock 2/2 #2 2. UTI and mignon asp pneumonia 3. altered mental status : resolved? -acute on chronic -seems to be at baseline, continue to monitor 4. Chronic encephalopathy with functional quadriplegia and chronic respiratory failure -Resides in a senior living facility -prev CVA 5. Severe hypochromic anemia -transfused 1 unit 12/12/18, will give another unit to optimize 6. Hypernatremic dehydration with mild KINGSLEY : improving -free water 200 q4h 7. hypothyroidism -resumed on home synthroid 8. Acute on chronic resp failure -chronically vent dependent via trach -acidotic on arrival, pulm managing vent 9. Chronic Neurogenic dysphagia s/p PEG Dispo: -continue ICU care and wean off pressors -all cultures remain negative, but patient was on cefepime prior to admit , continue abx per ID -Continue all other measures -further interventions per course CRITICAL CARE TIME: >35 mins Result Diagram: 12/14/18 0400 12/14/18 0400 Results 24hrs Laboratory Tests Test 12/14/18 04:00 12/14/18 05:00 White Blood Count 9.8 # Red Blood Count 3.19 L Hemoglobin 9.0 L Hematocrit 28.5 L Mean Corpuscular Volume 89.3 Mean Corpuscular Hemoglobin 28.2 L Mean Corpuscular Hemoglobin Concent 31.6 L Red Cell Distribution Width 15.0 H Platelet Count 279 Mean Platelet Volume 9.7 Immature Granulocytes % 2.000 H Neutrophils % 77.5 H Lymphocytes % 13.0 L Monocytes % 6.8 Eosinophils % 0.5 Basophils % 0.2 Nucleated Red Blood Cells % 1.1 H Immature Granulocytes # 0.200 H Neutrophils # 7.6 H Lymphocytes # 1.3 Monocytes # 0.7 Eosinophils # 0.1 Basophils # 0.0 Nucleated Red Blood Cells # 0.1 H Sodium Level 144 Potassium Level 3.8 Chloride Level 115 H Carbon Dioxide Level 22 Anion Gap 7 Blood Urea Nitrogen 81 H Creatinine 0.84 Est Glomerular Filtrat Rate mL/min > 60 Glucose Level 177 Calcium Level 8.3 L Phosphorus Level 2.5 Magnesium Level 1.6 L Lab Scanned Report BLOOD TRANSFUSION Exam/Review of Systems Exam Vitals Vital Signs Date Temp Pulse Resp B/P (MAP) Pulse Ox O2 O2 Flow FiO2 Time Delivery Rate 12/14/18 69 16 90/56 (67) 98 Nasal 3.0 09:30 Cannula 12/14/18 97.0 07:30 Intake and Output 12/13/18 12/13/18 12/14/18 1515:00 23:00 07:00 IntakeIntake Total 1757.815 ml 1939.500 ml 2074.563 ml OutputOutput Total 425 ml 510 ml 660 ml BalanceBalance 1332.815 ml 1429.500 ml 1414.563 ml Results Results 24hrs Laboratory Tests Test 12/14/18 04:00 12/14/18 05:00 White Blood Count 9.8 # Red Blood Count 3.19 L Hemoglobin 9.0 L Hematocrit 28.5 L Mean Corpuscular Volume 89.3 Mean Corpuscular Hemoglobin 28.2 L Mean Corpuscular Hemoglobin Concent 31.6 L Red Cell Distribution Width 15.0 H Platelet Count 279 Mean Platelet Volume 9.7 Immature Granulocytes % 2.000 H Neutrophils % 77.5 H Lymphocytes % 13.0 L Monocytes % 6.8 Eosinophils % 0.5 Basophils % 0.2 Nucleated Red Blood Cells % 1.1 H Immature Granulocytes # 0.200 H Neutrophils # 7.6 H Lymphocytes # 1.3 Monocytes # 0.7 Eosinophils # 0.1 Basophils # 0.0 Nucleated Red Blood Cells # 0.1 H Sodium Level 144 Potassium Level 3.8 Chloride Level 115 H Carbon Dioxide Level 22 Anion Gap 7 Blood Urea Nitrogen 81 H Creatinine 0.84 Est Glomerular Filtrat Rate mL/min > 60 Glucose Level 177 Calcium Level 8.3 L Phosphorus Level 2.5 Magnesium Level 1.6 L Lab Scanned Report BLOOD TRANSFUSION Medications Medication Current Medications IV Flush (NS 3 ml) 3 ml PER PROTOCOL IV ; Start 12/11/18 at 19:00 Ondansetron HCl (Zofran Inj) 4 mg Q6H PRN IV NAUSEA/VOMITING; Start 12/11/18 at 19:00 Acetaminophen (Tylenol Tab) 650 mg Q6H PRN PO .PAIN 1-3 OR TEMP; Start 12/11/18 at 19:00 Acetaminophen/ Hydrocodone Bitart ([place] (5/325)) 1 tab Q6H PRN PO .MOD PAIN 4- 6; Start 12/11/18 at 19:00 Acetaminophen (Tylenol Tab) 650 mg Q6H PRN GTB MILD PAIN LEVEL 1-3; Start 12/11/18 at 19:00 Ascorbic Acid (Vitamin C) 500 mg DAILY GTB Last administered on 12/14/18at 08:11; Admin Dose 500 MG; Start 12/12/18 at 09:00 Clonidine (Catapres) 0.1 mg Q6H PRN GTB FOR SBP>160; Start 12/11/18 at 19:00 Gabapentin (Neurontin) 300 mg QHS GTB Last administered on 12/13/18at 20:02; Admin Dose 300 MG; Start 12/11/18 at 21:00 Levothyroxine Sodium (Synthroid) 75 mcg BEFORE BREAKFAST GTB Last administered on 12/14/18at 08:12; Admin Dose 75 MCG; Start 12/12/18 at 07:00 Simethicone (Mylicon) 80 mg Q6H GTB Last administered on 12/14/18 08:11; Admin Dose 80 MG; Start 12/11/18 at 19:00 Albuterol/ Ipratropium (Duoneb) 3 ml Q4H RESP THERAPY PRN HHN SHORTNESS OF BREATH; Start 12/11/18 at 19:00 Piperacillin Sod/ Tazobactam Sod 100 ml @ 200 mls/hr Q6 IVPB Last administered on 12/14/18at 05:24; Admin Dose 200 MLS/HR; Start 12/12/18 at 00:00 Norepinephrine 250 ml @ 1.875 mls/ hr TITRATE IV Last administered on 12/13/18 21:50; Admin Dose 3.75 MLS/HR; Start 12/12/18 at 05:00 IV Flush (NS 10 ml) 10 ml PRN PRN IV IV PROTOCOL; Start 12/12/18 at 17:00 Morphine Sulfate (morphine) 6 mg Q4H PRN GTB .SEVERE PAIN 7-10; Start 12/13/18 at 12:00 Dextrose/Sodium Chloride 1,000 ml @ 50 mls/hr Q20H IV Last administered on 12/14/18 05:23; Admin Dose 125 MLS/HR; Start 12/13/18 at 12:30 Mupirocin (Bactroban) 1 applic BID TOP Last administered on 12/14/18 08:12; Admin Dose 1 APPLIC; Start 12/13/18 at 21:00; Stop 12/20/18 at 09:01 Potassium Chloride 100 ml @ 50 mls/hr Q2H IVPB Last administered on 12/14/18 08:26; Admin Dose 50 MLS/HR; Start 12/14/18 at 06:30; Stop 12/14/18 at 10:29 Albumin Human 100 ml @ 100 mls/hr Q8H IV Last administered on 12/14/18 09:54; Admin Dose 100 MLS/HR; Start 12/14/18 at 10:00; Stop 12/15/18 at 02:59 Midodrine (Proamatine) 5 mg TID@0900,1300,1700 PO ; Start 12/14/18 at 09:30 JOSE J DEMPSEY Dec 14, 2018 10:15
[2018-12-14] MEDS: MIDODRINE 5 MG TAB PO SCH ×3 (10:23→17:03)
[2018-12-14] MEDS ORDERED: VANCOMYCIN IV PER PHARMACY XX SCH (11:30)
[2018-12-14] MEDS ORDERED: VANCOMYCIN HCL 1.75 GM in SOD CHLORIDE 0.9% 500 ML IVPB ONE (14:00)
--- NOTE | 2018-12-14 14:26 | CONS ---
Assessment/Plan Assessment/Plan Hospital Course (Demo Recall) Patient is awake noncommunicative in no distress she is on low-dose of Levophed drip, afebrile WBC 9.8 H&H 9 and 28.5 platelets 279 neutrophils 77.5 BUN 81 creatinine 0.84 Microbiology: Blood urine and influenza swab negative, MRSA swab positive Indwelling: Trach PEG [place], PICC line Antimicrobials: Vancomycin, Zosyn Physical examination: Chronically ill-appearing elderly woman who is awake in no distress. Head atraumatic normocephalic sclera nonicteric neck is supple tracheostomy present Passy-Matt valve present chest rise symmetrical breath sounds diminished to bases with scattered rhonchi. Heart: S1-S2. Abdomen soft bowel sounds present. Extremities with dependent edema. Assessment: 1. Septic shock 2. Healthcare associated pneumonia 3. Urinary tract infection per urinalysis 4. MRSA nares colonization 5. Chronic respiratory failure and dysphagia 6. History of CVA Plan: Remains on low-dose of Levophed, vancomycin was added this morning, she is also getting topical Bactroban, will send sputum cultures, continue antibiotics Consultation Date/Type/Reason Admit Date/Time Dec 11, 2018 at 20:30 Initial Consult Date 12/13/18 Type of Consult id Requesting Provider: JOSE J DEMPSEY Date/Time of Note DATE: 12/14/18 TIME: 14:25 Exam/Review of Systems Exam Vitals Vital Signs Date Temp Pulse Resp B/P (MAP) Pulse Ox O2 O2 Flow FiO2 Time Delivery Rate 12/14/18 64 17 113/71 98 Nasal 13:45 (85) Cannula 12/14/18 97.0 12:00 12/14/18 3.0 09:30 Intake and Output 12/13/18 12/13/18 12/14/18 1515:00 23:00 07:00 IntakeIntake Total 1757.815 ml 1939.500 ml 2074.563 ml OutputOutput Total 425 ml 510 ml 660 ml BalanceBalance 1332.815 ml 1429.500 ml 1414.563 ml Results Result Diagram: 12/14/18 0400 12/14/18 0400 Results 24hrs Laboratory Tests Test 12/14/18 04:00 12/14/18 05:00 White Blood Count 9.8 # Red Blood Count 3.19 L Hemoglobin 9.0 L Hematocrit 28.5 L Mean Corpuscular Volume 89.3 Mean Corpuscular Hemoglobin 28.2 L Mean Corpuscular Hemoglobin Concent 31.6 L Red Cell Distribution Width 15.0 H Platelet Count 279 Mean Platelet Volume 9.7 Immature Granulocytes % 2.000 H Neutrophils % 77.5 H Lymphocytes % 13.0 L Monocytes % 6.8 Eosinophils % 0.5 Basophils % 0.2 Nucleated Red Blood Cells % 1.1 H Immature Granulocytes # 0.200 H Neutrophils # 7.6 H Lymphocytes # 1.3 Monocytes # 0.7 Eosinophils # 0.1 Basophils # 0.0 Nucleated Red Blood Cells # 0.1 H Sodium Level 144 Potassium Level 3.8 Chloride Level 115 H Carbon Dioxide Level 22 Anion Gap 7 Blood Urea Nitrogen 81 H Creatinine 0.84 Est Glomerular Filtrat Rate mL/min > 60 Glucose Level 177 Calcium Level 8.3 L Phosphorus Level 2.5 Magnesium Level 1.6 L Lab Scanned Report BLOOD TRANSFUSION Medications Medication Current Medications IV Flush (NS 3 ml) 3 ml PER PROTOCOL IV ; Start 12/11/18 at 19:00 Ondansetron HCl (Zofran Inj) 4 mg Q6H PRN IV NAUSEA/VOMITING; Start 12/11/18 at 19:00 Acetaminophen (Tylenol Tab) 650 mg Q6H PRN PO .PAIN 1-3 OR TEMP; Start 12/11/18 at 19:00 Acetaminophen/ Hydrocodone Bitart ([place] (5/325)) 1 tab Q6H PRN PO .MOD PAIN 4- 6; Start 12/11/18 at 19:00 Acetaminophen (Tylenol Tab) 650 mg Q6H PRN GTB MILD PAIN LEVEL 1-3; Start 12/11/18 at 19:00 Ascorbic Acid (Vitamin C) 500 mg DAILY GTB Last administered on 12/14/18at 08:11; Admin Dose 500 MG; Start 12/12/18 at 09:00 Clonidine (Catapres) 0.1 mg Q6H PRN GTB FOR SBP>160; Start 12/11/18 at 19:00 Gabapentin (Neurontin) 300 mg QHS GTB Last administered on 12/13/18at 20:02; Admin Dose 300 MG; Start 12/11/18 at 21:00 Levothyroxine Sodium (Synthroid) 75 mcg BEFORE BREAKFAST GTB Last administered on 12/14/18 08:12; Admin Dose 75 MCG; Start 12/12/18 at 07:00 Simethicone (Mylicon) 80 mg Q6H GTB Last administered on 12/14/18 12:23; Admin Dose 80 MG; Start 12/11/18 at 19:00 Albuterol/ Ipratropium (Duoneb) 3 ml Q4H RESP THERAPY PRN HHN SHORTNESS OF BREATH; Start 12/11/18 at 19:00 Piperacillin Sod/ Tazobactam Sod 100 ml @ 200 mls/hr Q6 IVPB Last administered on 12/14/18 11:24; Admin Dose 200 MLS/HR; Start 12/12/18 at 00:00 Norepinephrine 250 ml @ 1.875 mls/ hr TITRATE IV Last administered on 12/13/18at 21:50; Admin Dose 3.75 MLS/HR; Start 12/12/18 at 05:00 IV Flush (NS 10 ml) 10 ml PRN PRN IV IV PROTOCOL; Start 12/12/18 at 17:00 Morphine Sulfate (morphine) 6 mg Q4H PRN GTB .SEVERE PAIN 7-10; Start 12/13/18 at 12:00 Dextrose/Sodium Chloride 1,000 ml @ 50 mls/hr Q20H IV Last administered on 12/14/18 05:23; Admin Dose 125 MLS/HR; Start 12/13/18 at 12:30 Mupirocin (Bactroban) 1 applic BID TOP Last administered on 12/14/18 08:12; Admin Dose 1 APPLIC; Start 12/13/18 at 21:00; Stop 12/20/18 at 09:01 Albumin Human 100 ml @ 100 mls/hr Q8H IV Last administered on 12/14/18 09:54; Admin Dose 100 MLS/HR; Start 12/14/18 at 10:00; Stop 12/15/18 at 02:59 Midodrine (Proamatine) 5 mg TID@0900,1300,1700 PO Last administered on 12/14/18 12:23; Admin Dose 5 MG; Start 12/14/18 at 09:30 Vancomycin HCl (Vanco Iv Per Pharmacy) VANCOMYCIN PER PHARMACY PER PROTOCOL XX ; Start 4/3/19 at 11:30 Mupirocin (Bactroban) 1 applic BID TOP ; Start 12/14/18 at 21:00 Vancomycin HCl 1.75 gm/Sodium Chloride 500 ml @ 125 mls/hr LOADING DOSE ONCE IVPB Last administered on 12/14/18at 13:43; Admin Dose 125 MLS/HR; Start 12/14/18 at 14:00; Stop 12/14/18 at 17:59 RAMAN NICOLAS NP Dec 14, 2018 14:26
--- NOTE | 2018-12-14 20:14 | CONS ---
DATE OF ADMISSION: 12/11/2018 DATE OF CONSULTATION: 12/14/2018 REASON FOR CONSULTATION: Nephrology. PHYSICIAN REQUESTING CONSULT: Nnamdi Varghese MD HISTORY OF PRESENT ILLNESS: This is a 68-year-old female with a past medical history of quadriplegia , history of chronic respiratory failure with tracheostomy, history of dysphagia status post PEG, who [facility] due to alt ered level of consciousness. The patient upon arrival to the emergency room had laboratory data draw n which showed the patient to be hypernatremic, elevated BUN of 147, creatinine 1.07. The patient in the emergency room was diagnosed with UTI. Chest x-ray also suggested possible aspiration pneumonia . The patient was hypotensive, was placed on pressor support, IV fluids, antibiotic therapy and admi tted to intensive care unit. While in intensive care unit, the patient has been seen by a pulmonolog ist, infectious disease doctor, been treated for septic shock. In terms of patient's renal history, the patient's creatinine on admission was noted to be 1.07 mg/dL which is improved to 0.81 mg/dL. During this time, the patient has had significant azotemia which h as been improving with IV hydration. The patient has had marginal urinary output. There have been n o reports of any hemoptysis, hematemesis or hematochezia. PAST MEDICAL HISTORY: History of chronic respiratory failure, history of dysphagia, history of encep halopathy, history of anemia. PAST SURGICAL HISTORY: Status post tracheostomy, status post PEG. FAMILY HISTORY: No known family history. SOCIAL HISTORY: Lives at skilled nurse facility. MEDICATIONS: Have been reviewed. REVIEW OF SYSTEMS: Unable to do adequate review of systems as patient is altered. Pertinent positiv es as obtained by reviewing medical records, speaking to hospital staff, stated in HPI, otherwise neg ative. PHYSICAL EXAMINATION: VITAL SIGNS: Blood pressure 97/62, respirations 15, pulse 68, temperature is 98.6. HEENT: Head is normocephalic. NECK: Supple. HEART: Regular rate. LUNGS: Show diminished breath sounds at the base. ABDOMEN: Soft. Positive PEG. EXTREMITIES: Negative for clubbing, cyanosis. Positive edema. DERMATOLOGIC: No rashes. MUSCULOSKELETAL: No joint effusions. NEUROLOGIC: Limited exam. LABORATORY DATA: Show sodium 144, potassium 3.8, chloride 115, BUN 81, creatinine 0.84. Magnesium i s 1.6. White count 9.8, hemoglobin 9.0, platelet count is 279. The patient's urinalysis was reviewe d. DIAGNOSTIC DATA: Renal ultrasound was reviewed. IMAGING STUDIES: Reviewed. ASSESSMENT AND PLAN: This is a 68-year-old female who presents with: 1. Nonoliguric acute kidney injury with unknown baseline creatinine. Etiology of acute kidney injur y is secondary to volume depletion, septic acute kidney injury. The patient's renal function has bee n improving with IV hydration, pressor support, antibiotic therapy. Renal ultrasound was reviewed. Urine electrolytes were reviewed. Recommendation is to continue current medical management. Continu e volume expansion with IV fluids. Continue pressor support, maintain MAP of 65. Continue renally d ose meds, avoid nephrotoxins. 2. Hypernatremia. The patient has a free water deficit approximately 2 liters. Continue free water flushes and hypotonic fluids and monitor sodium levels closely. 3. Hyperchloremic metabolic acidosis secondary to acute kidney injury. IV fluids. Continue to jignesh tor. 4. Anemia. Monitor hemoglobin and hematocrit levels. 5. Hypomagnesemia. We will replete with magnesium sulfate. 6. Mineral bone disorder. Monitor calcium and phosphorus level. 7. Septic shock. Etiology is secondary to urinary tract infection and healthcare-associated pneumon ia. Continue current medical management. Wean off pressor support. Continue antibiotic therapy. F ollow up with infectious disease. 8. Chronic respiratory failure, status post tracheostomy. Continue to monitor. 9. Acute encephalopathy. Etiology is toxic metabolic. Continue to monitor. 10. Hypothyroidism. Continue Synthroid. 11. History of right upper extremity deep venous thrombosis. 11. History of functional quadriplegia due to C-spine injury. Thank you, Dr. Varghese, for this interesting consult. It will be a pleasure to follow patient with you t hroughout the hospital course. Dictated By: MARINO CORRAL DO NR/NTS Conf#: [id number] DID#: [id number] CC: ZACH GROVER MD; CRUZ GORDILLO MD; JOANNE FLORES MD;*EndCC*
[2018-12-14] MEDS: GABAPENTIN 300 MG CAP GTB SCH (20:39)
[2018-12-15] VITALS (55 sets, daily range): BP systolic 63–178; BP diastolic 43–100; PULSE 51–76; RESP 10–30
[2018-12-15] MEDS: PIPER-TAZO 3.375 GM IV (PMX) 100 ML IVPB SCH ×4 (00:46→17:31)
[2018-12-15] MEDS: VANCOMYCIN 1 GM 250 ML IVPB SCH ×2 (02:24→14:13)
[2018-12-15] MEDS: ALBUMIN HUMAN 25% 100 ML IV SCH ×3 (02:26→15:30)
[2018-12-15] MEDS: LEVOTHYROXINE 75 MCG TAB GTB SCH (06:19)
[2018-12-15] MEDS: DEXTROSE 5%-0.225% NACL 1,000 ML IV SCH (07:00)
[2018-12-15] MEDS: ASCORBIC ACID 500 MG TAB GTB SCH (08:00)
[2018-12-15] MEDS: MIDODRINE 5 MG TAB PO SCH ×3 (08:00→17:31)
[2018-12-15] MEDS: MUPIROCIN 2% 22 GM OINT TOP SCH ×3 (08:00→21:30)
--- NOTE | 2018-12-15 08:15 | PN ---
DATE: 12/15/2018 SUBJECTIVE: The patient is currently on pressor support. The patient's urinary output has been adeq uate. There have been no reports of any hemoptysis, hematemesis or hematochezia. OBJECTIVE: VITAL SIGNS: Blood pressure is 84/49, respirations 13, pulse 68, temperature 98.6. HEENT: Head is normocephalic. NECK: Shows trach. HEART: Regular rate. LUNGS: Show diminished breath sounds at the base. ABDOMEN: Soft, nontender to palpation. Positive PEG. EXTREMITIES: Negative for clubbing, cyanosis. Positive edema. DERMATOLOGIC: No rashes. MUSCULOSKELETAL: No joint effusion. NEUROLOGIC: No change in exam. MEDICATIONS: The patient's medications have been reviewed. LABORATORY DATA: Shows sodium 144, BUN 69, creatinine 0.63. White count 10.5, hemoglobin 9.2, plate let count is 238. The patient's urinalysis shows FENa less than 1%, protein creatinine ratio of 1 gr am per gram of creatinine. The patient's cultures have been reviewed. IMAGING STUDIES: Reviewed. Renal ultrasound was reviewed. ASSESSMENT AND PLAN: 1. Nonoliguric acute kidney injury with unknown baseline creatinine. Etiology of acute kidney injur y is secondary to hemodynamics, sepsis. The patient's renal function has been improving with support camila care. The patient's urinalysis was reviewed, does show evidence of pyuria and hematuria. The pa coco has significant nephrotic range proteinuria. Plan at this point would be to continue current t reatment plan. Continue pressor support to maintain MAP of 65. Continue antibiotic therapy, continu e gentle IV hydration and we will monitor renal function closely. 2. Possible chronic kidney disease. The patient has noted nephrotic range proteinuria, possible nep hrotic syndrome. The patient's protein creatinine ratio was noted to be greater than 30 grams per gr am of creatinine. Plan at this point is to be re-quantified a protein/creatinine ratio. We will als o check a microalbumin/creatinine ratio. We will continue treating acute kidney injury as stated abo ve. We would consider starting the patient on MICHAELA inhibitor or ARB if renal function stabilizes and hemodynamics are stable. Etiology for possible nephrotic range proteinuria, nephrotic syndrome may b e multifactorial, primary glomerulopathy i.e. FSGS, membranous nephropathy, minimal change disease ar e considerations. We will continue to monitor. 3. Hypernatremia, improved. Continue free water flushes. 4. Metabolic acidosis secondary to acute kidney injury, IV fluids, continue to monitor. 5. Anemia. Continue to monitor hemoglobin and hematocrit levels. 6. Hypomagnesemia. We will monitor and replete as needed. 7. Septic shock, etiology is secondary to urinary tract infection, healthcare-associated pneumonia. Continue medical management. Wean off pressor support. Continue volume expansion. 8. Chronic respiratory failure, status post trach. Continue to monitor. 9. Acute encephalopathy, etiology is toxic metabolic. 10. Hypothyroidism. Continue Synthroid. 11. History of right upper extremity deep vein thrombosis. 12. Quadriplegia secondary to C spine injury. Please note I spent over 30 minutes of critical care time with this patient. Dictated By: MARINO CORRAL DO NR/NTS Conf#: [id number] DID#: [id number] CC: ZACH GROVER MD; JOANNE FLORES MD; CRUZ GORDILLO MD;*End*
--- NOTE | 2018-12-15 09:03 | CONS ---
Assessment/Plan Assessment/Plan Assessment/Plan (Daily) Patient is currently on Levophed 8.5 mics per minute. Assessment recommendations; 1. Patient with history of functional quadriplegia admitted for sepsis due to pneumonia and UTI. Still requiring low-dose pressor support. Clinically improving though. 2. History of right upper extremity DVT. 3. History of hypothyroidism. 4. History of C-spine surgery. In the past. 5. Chronic dysphagia, status post G-tube placement in the past. Continue current supportive care. Wean down pressor support as tolerated. Chest x-ray from today is pending. Further recommendations once chest x-ray is obtained. Consultation Date/Type/Reason Admit Date/Time Dec 11, 2018 at 20:30 Initial Consult Date 12/12/18 Type of Consult Pulmonary/critical care Patient is a 68-year-old lady who was admitted to the hospital [facility] with hypotension as well as altered mental status. Patient has been diagnosed with bilateral pneumonia as well as severe prerenal azotemia with hyponatremia as well as anemia. The patient has improved after being admitted with significant improvement in mental status still requiring low-dose Levophed. The patient has been adequately fluid resuscitated and also getting blood transfusion. By the time I saw her in ICU, patient is on her tracheostomy with Applied and is appropriately responsive. Patient did not appear to be in any distress. Past medical history; 1. History of C-spine surgery with functional quadriplegia. 2. History of G-tube placement. 3. Possibly chronic encephalopathy. 4. Chronic respiratory failure, patient however doing fairly well on tracheostomy with capping. Medications; reviewed. Patient is currently on Levophed 2 mics per minute. Allergies; as outlined above. Social history; noncontributory. Family history; not available. Occupational history; not available. Review of systems; not able to be obtained. General exam; elderly woman, awake and fairly responsive. Currently in no distress. Requesting Provider: JOSE J DEMPSEY Date/Time of Note DATE: 12/15/18 TIME: 08:58 24 HR Interval Summary Free Text/Dictation Patient's condition is gradually improving. On a tapering dose of Levophed. General exam; elderly woman, awake, appears lethargic, currently no distress. Exam/Review of Systems Exam Vitals Vital Signs Date Temp Pulse Resp B/P (MAP) Pulse Ox O2 O2 Flow FiO2 Time Delivery Rate 12/15/18 68 13 84/49 (61) 96 Nasal 3.0 07:00 Cannula 12/15/18 97.5 04:00 Intake and Output 12/14/18 12/14/18 12/15/18 1515:00 23:00 07:00 IntakeIntake Total 1292.625 ml 1435.38 ml 1563.752 ml OutputOutput Total 415 ml 345 ml 750 ml BalanceBalance 877.625 ml 1090.38 ml 813.752 ml Exam H EENT; supple neck, tracheostomy in place. Patient has fair dentition. No neck masses. Chest exam; diminished but clear breath sounds. S1-S2 audible, no murmurs. Regular rhythm. Abdomen exam; soft, G-tube in place. No organomegaly. Bowel sounds audible. Extremity exam; no peripheral edema. 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 Exhibiting profound generalized weakness. Results Result Diagram: 12/15/18 0426 12/15/18 0500 Results 24hrs Laboratory Tests Test 12/14/18 10:00 12/15/18 04:26 12/15/18 05:00 12/15/18 07:00 Urine Color YELLOW Urine Clarity CLOUDY A Urine pH 6.0 Urine Specific 1.012 [place] Urine Ketones NEGATIVE Urine Nitrite NEGATIVE Urine Bilirubin NEGATIVE Urine Urobilinogen NEGATIVE Urine Leukocyte 3+ H Esterase Urine Microscopic 10 H RBC Urine Microscopic 124 H WBC Urine Squamous FEW Epithelial Cells Urine Bacteria FEW A Urine Mucus FEW A Urine Yeast MANY A (Budding) Urine Hemoglobin 1+ H Urine Random 16.38 L Creatinine Urine Random 13 L Sodium Urine Glucose NEGATIVE Urine Total 191.0 H Protein White Blood Count 10.5 Red Blood Count 2.96 L Hemoglobin 8.2 L Hematocrit 26.8 L Mean Corpuscular 90.5 Volume Mean Corpuscular 27.7 L Hemoglobin Mean Corpuscular 30.6 L Hemoglobin Concent Red Cell 15.8 H Distribution Width Platelet Count 238 Mean Platelet 9.9 Volume Immature 1.800 H Granulocytes % Neutrophils % 79.3 H Lymphocytes % 11.3 L Monocytes % 6.5 Eosinophils % 0.9 Basophils % 0.2 Nucleated Red 1.0 H Blood Cells % Immature 0.190 H Granulocytes # Neutrophils # 8.3 H Lymphocytes # 1.2 Monocytes # 0.7 Eosinophils # 0.1 Basophils # 0.0 Nucleated Red 0.1 H Blood Cells # Sodium Level 144 Potassium Level 4.5 Chloride Level 115 H Carbon Dioxide 20 L Level Anion Gap 9 Blood Urea 69 H Nitrogen Creatinine 0.73 Est Glomerular > 60 Filtrat Rate mL/min Glucose Level 100 # Calcium Level 8.6 Blood Gas Specimen Blood arterial Source Arterial Blood 12/15/2018 7:20:50 Date Drawn AM Arterial Blood pH 7.238 *L (Temp corrected) Arterial Blood 48.2 H pCO2 (Temp correct) Arterial Blood pO2 77.6 L (Temp corrected) Arterial Blood 20.1 L HCO3 Arterial Blood -7.0 L Base Excess Arterial Blood 95.2 Oxygen Saturation Robert Test ACCEPTAB Arterial Blood Gas Right Radial Puncture Site Arterial 0.3 Blood Carboxyhemog lobin Arterial Blood 0.1 Methemoglobin Blood Gas A-a O2 79.7 H Differential Oxyhemoglobin 94.8 Percent Blood Gas 37.0 Temperature Blood Gas Modality NASAL CANNULA FiO2 30.0 Blood Gas Critical JESUS SOTO Value Read Back Blood Gas Notified TM Whom Blood Gas Notified 12/15/2018 8:03:54 Time AM Medications Medication Current Medications IV Flush (NS 3 ml) 3 ml PER PROTOCOL IV ; Start 12/11/18 at 19:00 Ondansetron HCl (Zofran Inj) 4 mg Q6H PRN IV NAUSEA/VOMITING; Start 12/11/18 at 19:00 Acetaminophen (Tylenol Tab) 650 mg Q6H PRN PO .PAIN 1-3 OR TEMP; Start 12/11/18 at 19:00 Acetaminophen/ Hydrocodone Bitart ([place] (5/325)) 1 tab Q6H PRN PO .MOD PAIN 4- 6; Start 12/11/18 at 19:00 Acetaminophen (Tylenol Tab) 650 mg Q6H PRN GTB MILD PAIN LEVEL 1-3; Start 12/11/18 at 19:00 Ascorbic Acid (Vitamin C) 500 mg DAILY GTB Last administered on 12/15/18at 08:00; Admin Dose 500 MG; Start 12/12/18 at 09:00 Clonidine (Catapres) 0.1 mg Q6H PRN GTB FOR SBP>160; Start 12/11/18 at 19:00 Gabapentin (Neurontin) 300 mg QHS GTB Last administered on 12/14/18at 20:39; Admin Dose 300 MG; Start 12/11/18 at 21:00 Levothyroxine Sodium (Synthroid) 75 mcg BEFORE BREAKFAST GTB Last administered on 12/15/18 06:19; Admin Dose 75 MCG; Start 12/12/18 at 07:00 Simethicone (Mylicon) 80 mg Q6H GTB Last administered on 12/15/18 06:19; Admin Dose 80 MG; Start 12/11/18 at 19:00 Albuterol/ Ipratropium (Duoneb) 3 ml Q4H RESP THERAPY PRN HHN SHORTNESS OF BREATH; Start 12/11/18 at 19:00 Piperacillin Sod/ Tazobactam Sod 100 ml @ 200 mls/hr Q6 IVPB Last administered on 12/15/18 06:19; Admin Dose 200 MLS/HR; Start 12/12/18 at 00:00 Norepinephrine 250 ml @ 1.875 mls/ hr TITRATE IV Last administered on 12/13/18at 21:50; Admin Dose 3.75 MLS/HR; Start 12/12/18 at 05:00 IV Flush (NS 10 ml) 10 ml PRN PRN IV IV PROTOCOL; Start 12/12/18 at 17:00 Morphine Sulfate (morphine) 6 mg Q4H PRN GTB .SEVERE PAIN 7-10; Start 12/13/18 at 12:00 Dextrose/Sodium Chloride 1,000 ml @ 50 mls/hr Q20H IV Last administered on 12/15/18at 07:00; Admin Dose 50 MLS/HR; Start 12/13/18 at 12:30 Mupirocin (Bactroban) 1 applic BID TOP Last administered on 12/15/18at 08:00; Admin Dose 1 APPLIC; Start 12/13/18 at 21:00; Stop 12/20/18 at 09:01 Midodrine (Proamatine) 5 mg TID@0900,1300,1700 PO Last administered on 12/15/18at 08:00; Admin Dose 5 MG; Start 12/14/18 at 09:30 Vancomycin HCl (Vanco Iv Per Pharmacy) VANCOMYCIN PER PHARMACY PER PROTOCOL XX ; Start 12/14/18 at 11:30 Vancomycin HCl 250 ml @ 125 mls/hr Q12H IVPB Last administered on 12/15/18at 02:24; Admin Dose 125 MLS/HR; Start 12/15/18 at 02:00 Albumin Human 100 ml @ 100 mls/hr Q8H IV Last administered on 12/15/18at 08:02; Admin Dose 100 MLS/HR; Start 12/15/18 at 08:00; Stop 12/16/18 at 00:59 KARLA MAJOR Dec 15, 2018 09:03
--- NOTE | 2018-12-15 12:37 | PN ---
Date/Time of Note Date/Time of Note DATE: 12/15/18 TIME: 12:25 Assessment/Plan VTE Prophylaxis Risk score (from Ns)>0 risk: 3 SCD applied (from Ns): Yes Pharmacological prophylaxis: heparin Lines/Catheters IV Catheter Type (from Nrsg): PICC Line Central line still needed: Yes Urinary Cath still in place: Yes Reason Cath still needed: other (indicate) Assessment/Plan Hospital Course S: remains able to verbalize "hi" and follow simple commands Objective: Constitutional: barely verbal, can try to smile, Eyes open spontaneously, No obvious distress Psych: other (unable to assess) Head: normocephalic, atraumatic Eyes: PERRL, No icteric ENMT: trach to vent Respiratory: coarse b/s bilaterally No labored breathing Cardiovascular: bradycardia on tele No murmurs/extra sounds Gastrointestinal: soft, doesn't seem tender, bowel sounds, other (PEG tube noted with no cellulitis or discharge) Genitourinary - Female: nl external genitalia, sequeira to bs drainage Extremities: Chronic msc wasting, has a minimal tentering machine off bearer R hand, can barely wiggle fingers L hand, but completely paretic mignon LE with edema / fullness bilaterally Neurological: lethargic, No nl speech, No nl strength assessment and plan: 68-year-old female who resides in a senior care at [facility], patient has a history of functional quadriplegia, chronic respiratory failure with trach who presented from the senior care with altered mental status currently managed as follows: 1. Severe sepsis with septic shock 2/2 #2 2. UTI and mignon asp pneumonia -UA from 12/14/18 continues to show infection 3. altered mental status : resolved? -acute on chronic -seems to be at baseline, continue to monitor 4. Chronic encephalopathy with functional quadriplegia and chronic respiratory failure -Resides in a [facility] facility -prev CVA 5. Severe hypochromic anemia -transfused 1 unit 12/12/18, will give another unit to optimize 6. Hypernatremic dehydration with mild [place] : improving -free water 200 q4h 7. hypothyroidism -resumed on home synthroid 8. Acute on chronic resp failure -chronically vent dependent via trach 9. Chronic Neurogenic dysphagia s/p PEG 10. metabolic acidosis, likely from sepsis Dispo: -continue ICU care and wean off pressors -continues on Midodrine per Pulm -all cultures remain negative, but patient was on cefepime prior to admit -ID to adjust abx, will also have nursing change sequeira -nephro managing fluids -Family meeting to review goals of care -Continue all other measures -further interventions per course CRITICAL CARE TIME: >35 mins Result Diagram: 12/15/18 0426 12/15/18 0500 Results 24hrs Laboratory Tests Test 12/15/18 04:26 12/15/18 05:00 12/15/18 07:00 White Blood Count 10.5 Red Blood Count 2.96 L Hemoglobin 8.2 L Hematocrit 26.8 L Mean Corpuscular Volume 90.5 Mean Corpuscular Hemoglobin 27.7 L Mean Corpuscular 30.6 L Hemoglobin Concent Red Cell Distribution Width 15.8 H Platelet Count 238 Mean Platelet Volume 9.9 Immature Granulocytes % 1.800 H Neutrophils % 79.3 H Lymphocytes % 11.3 L Monocytes % 6.5 Eosinophils % 0.9 Basophils % 0.2 Nucleated Red Blood Cells % 1.0 H Immature Granulocytes # 0.190 H Neutrophils # 8.3 H Lymphocytes # 1.2 Monocytes # 0.7 Eosinophils # 0.1 Basophils # 0.0 Nucleated Red Blood Cells # 0.1 H Sodium Level 144 Potassium Level 4.5 Chloride Level 115 H Carbon Dioxide Level 20 L Anion Gap 9 Blood Urea Nitrogen 69 H Creatinine 0.73 Est Glomerular Filtrat > 60 Rate mL/min Glucose Level 100 # Calcium Level 8.6 Blood Gas Specimen Source Blood arterial Arterial Blood Date Drawn 12/15/2018 7:20:50 AM Arterial Blood pH 7.238 *L (Temp corrected) Arterial Blood pCO2 48.2 H (Temp correct) Arterial Blood pO2 77.6 L (Temp corrected) Arterial Blood HCO3 20.1 L Arterial Blood Base Excess -7.0 L Arterial Blood 95.2 Oxygen Saturation Robert Test ACCEPTAB Arterial Blood Gas Right Radial Puncture Site Arterial 0.3 Blood Carboxyhemoglobin Arterial Blood Methemoglobin 0.1 Blood Gas A-a O2 Differential 79.7 H Oxyhemoglobin Percent 94.8 Blood Gas Temperature 37.0 Blood Gas Modality NASAL CANNULA FiO2 30.0 Blood Gas Critical Value JESUS SOTO Read Back Blood Gas Notified Whom TM Blood Gas Notified Time 12/15/2018 8:03:54 AM Exam/Review of Systems Exam Vitals Vital Signs Date Temp Pulse Resp B/P (MAP) Pulse Ox O2 O2 Flow FiO2 Time Delivery Rate 12/15/18 70 17 106/63 97 11:00 (77) 12/15/18 Nasal 10:00 Cannula 12/15/18 98.4 08:00 12/15/18 3.0 08:00 Intake and Output 12/14/18 12/14/18 12/15/18 1515:00 23:00 07:00 IntakeIntake Total 1292.625 ml 1435.38 ml 1563.752 ml OutputOutput Total 415 ml 345 ml 750 ml BalanceBalance 877.625 ml 1090.38 ml 813.752 ml Results Results 24hrs Laboratory Tests Test 12/15/18 04:26 12/15/18 05:00 12/15/18 07:00 White Blood Count 10.5 Red Blood Count 2.96 L Hemoglobin 8.2 L Hematocrit 26.8 L Mean Corpuscular Volume 90.5 Mean Corpuscular Hemoglobin 27.7 L Mean Corpuscular 30.6 L Hemoglobin Concent Red Cell Distribution Width 15.8 H Platelet Count 238 Mean Platelet Volume 9.9 Immature Granulocytes % 1.800 H Neutrophils % 79.3 H Lymphocytes % 11.3 L Monocytes % 6.5 Eosinophils % 0.9 Basophils % 0.2 Nucleated Red Blood Cells % 1.0 H Immature Granulocytes # 0.190 H Neutrophils # 8.3 H Lymphocytes # 1.2 Monocytes # 0.7 Eosinophils # 0.1 Basophils # 0.0 Nucleated Red Blood Cells # 0.1 H Sodium Level 144 Potassium Level 4.5 Chloride Level 115 H Carbon Dioxide Level 20 L Anion Gap 9 Blood Urea Nitrogen 69 H Creatinine 0.73 Est Glomerular Filtrat > 60 Rate mL/min Glucose Level 100 # Calcium Level 8.6 Blood Gas Specimen Source Blood arterial Arterial Blood Date Drawn 12/15/2018 7:20:50 AM Arterial Blood pH 7.238 *L (Temp corrected) Arterial Blood pCO2 48.2 H (Temp correct) Arterial Blood pO2 77.6 L (Temp corrected) Arterial Blood HCO3 20.1 L Arterial Blood Base Excess -7.0 L Arterial Blood 95.2 Oxygen Saturation Robert Test ACCEPTAB Arterial Blood Gas Right Radial Puncture Site Arterial 0.3 Blood Carboxyhemoglobin Arterial Blood Methemoglobin 0.1 Blood Gas A-a O2 Differential 79.7 H Oxyhemoglobin Percent 94.8 Blood Gas Temperature 37.0 Blood Gas Modality NASAL CANNULA FiO2 30.0 Blood Gas Critical Value JESUS SOTO Read Back Blood Gas Notified Whom TM Blood Gas Notified Time 12/15/2018 8:03:54 AM Medications Medication Current Medications IV Flush (NS 3 ml) 3 ml PER PROTOCOL IV ; Start 12/11/18 at 19:00 Ondansetron HCl (Zofran Inj) 4 mg Q6H PRN IV NAUSEA/VOMITING; Start 12/11/18 at 19:00 Acetaminophen (Tylenol Tab) 650 mg Q6H PRN PO .PAIN 1-3 OR TEMP; Start 12/11/18 at 19:00 Acetaminophen/ Hydrocodone Bitart ([place] (5/325)) 1 tab Q6H PRN PO .MOD PAIN 4- 6; Start 12/11/18 at 19:00 Acetaminophen (Tylenol Tab) 650 mg Q6H PRN GTB MILD PAIN LEVEL 1-3; Start 12/11/18 at 19:00 Ascorbic Acid (Vitamin C) 500 mg DAILY GTB Last administered on 12/15/18at 08:00; Admin Dose 500 MG; Start 12/12/18 at 09:00 Clonidine (Catapres) 0.1 mg Q6H PRN GTB FOR SBP>160; Start 12/11/18 at 19:00 Gabapentin (Neurontin) 300 mg QHS GTB Last administered on 12/14/18at 20:39; Admin Dose 300 MG; Start 12/11/18 at 21:00 Levothyroxine Sodium (Synthroid) 75 mcg BEFORE BREAKFAST GTB Last administered on 12/15/18 06:19; Admin Dose 75 MCG; Start 12/12/18 at 07:00 Simethicone (Mylicon) 80 mg Q6H GTB Last administered on 12/15/18 12:01; Admin Dose 80 MG; Start 12/11/18 at 19:00 Albuterol/ Ipratropium (Duoneb) 3 ml Q4H RESP THERAPY PRN HHN SHORTNESS OF BREATH; Start 12/11/18 at 19:00 Piperacillin Sod/ Tazobactam Sod 100 ml @ 200 mls/hr Q6 IVPB Last administered on 12/15/18at 12:01; Admin Dose 200 MLS/HR; Start 12/12/18 at 00:00 Norepinephrine 250 ml @ 1.875 mls/ hr TITRATE IV Last administered on 12/13/18at 21:50; Admin Dose 3.75 MLS/HR; Start 12/12/18 at 05:00 IV Flush (NS 10 ml) 10 ml PRN PRN IV IV PROTOCOL; Start 12/12/18 at 17:00 Morphine Sulfate (morphine) 6 mg Q4H PRN GTB .SEVERE PAIN 7-10; Start 12/13/18 at 12:00 Dextrose/Sodium Chloride 1,000 ml @ 50 mls/hr Q20H IV Last administered on 12/15/18 07:00; Admin Dose 50 MLS/HR; Start 12/13/18 at 12:30 Mupirocin (Bactroban) 1 applic BID TOP Last administered on 12/15/18 08:00; Admin Dose 1 APPLIC; Start 12/13/18 at 21:00; Stop 12/20/18 at 09:01 Midodrine (Proamatine) 5 mg TID@0900,1300,1700 PO Last administered on 12/15/18at 12:01; Admin Dose 5 MG; Start 12/14/18 at 09:30 Vancomycin HCl (Vanco Iv Per Pharmacy) VANCOMYCIN PER PHARMACY PER PROTOCOL XX ; Start 12/14/18 at 11:30 Vancomycin HCl 250 ml @ 125 mls/hr Q12H IVPB Last administered on 12/15/18 02:24; Admin Dose 125 MLS/HR; Start 12/15/18 at 02:00 Albumin Human 100 ml @ 100 mls/hr Q8H IV Last administered on 12/15/18 08:02; Admin Dose 100 MLS/HR; Start 12/15/18 at 08:00; Stop 12/16/18 at 00:59 JOSE J DEMPSEY Dec 15, 2018 12:36
--- NOTE | 2018-12-15 14:16 | CONS ---
Assessment/Plan Assessment/Plan Hospital Course (Demo Recall) Patient is off pressors looks comfortable, afebrile. WBC 10.5 platelets 238 neutrophils 79.3 BUN 69 creatinine 0.73 Microbiology: Blood cultures remain negative MRSA swab positive sputum culture pending Urinalysis revealed many budding yeast Chest x-ray this morning revealed no significant change Antimicrobials: Vancomycin, Zosyn Microbiology: Blood urine and influenza swab negative, MRSA swab positive Indwelling: Trach PEG [place], PICC line Physical examination: Chronically ill-appearing elderly woman who is awake in no distress. Head atraumatic normocephalic sclera nonicteric neck is supple tracheostomy present [place] valve present chest rise symmetrical breath sounds diminished to bases with scattered rhonchi. Heart: S1-S2. Abdomen soft bowel sounds present. Extremities with dependent edema. Assessment: 1. Sepsis, s/p shock 2. Healthcare associated pneumonia 3. Urinary tract infection per urinalysis 4. MRSA nares colonization 5. Chronic respiratory failure and dysphagia 6. History of CVA Plan: Remains stable, will add Diflucan, continue abx, f/u sputum cx Consultation Date/Type/Reason Admit Date/Time Dec 11, 2018 at 20:30 Initial Consult Date 12/13/18 Type of Consult id Requesting Provider: JOSE J DEMPSEY Date/Time of Note DATE: 12/15/18 TIME: 14:15 Exam/Review of Systems Exam Vitals Vital Signs Date Temp Pulse Resp B/P (MAP) Pulse Ox O2 O2 Flow FiO2 Time Delivery Rate 12/15/18 71 17 126/79 99 13:00 (95) 12/15/18 98.9 12:00 12/15/18 Nasal 10:00 Cannula 12/15/18 3.0 08:00 Intake and Output 12/14/18 12/14/18 12/15/18 1515:00 23:00 07:00 IntakeIntake Total 1292.625 ml 1435.38 ml 1563.752 ml OutputOutput Total 415 ml 345 ml 750 ml BalanceBalance 877.625 ml 1090.38 ml 813.752 ml Results Result Diagram: 12/15/18 0426 12/15/18 0500 Results 24hrs Laboratory Tests Test 12/15/18 04:26 12/15/18 05:00 12/15/18 07:00 White Blood Count 10.5 Red Blood Count 2.96 L Hemoglobin 8.2 L Hematocrit 26.8 L Mean Corpuscular Volume 90.5 Mean Corpuscular Hemoglobin 27.7 L Mean Corpuscular 30.6 L Hemoglobin Concent Red Cell Distribution Width 15.8 H Platelet Count 238 Mean Platelet Volume 9.9 Immature Granulocytes % 1.800 H Neutrophils % 79.3 H Lymphocytes % 11.3 L Monocytes % 6.5 Eosinophils % 0.9 Basophils % 0.2 Nucleated Red Blood Cells % 1.0 H Immature Granulocytes # 0.190 H Neutrophils # 8.3 H Lymphocytes # 1.2 Monocytes # 0.7 Eosinophils # 0.1 Basophils # 0.0 Nucleated Red Blood Cells # 0.1 H Sodium Level 144 Potassium Level 4.5 Chloride Level 115 H Carbon Dioxide Level 20 L Anion Gap 9 Blood Urea Nitrogen 69 H Creatinine 0.73 Est Glomerular Filtrat > 60 Rate mL/min Glucose Level 100 # Calcium Level 8.6 Blood Gas Specimen Source Blood arterial Arterial Blood Date Drawn 12/15/2018 7:20:50 AM Arterial Blood pH 7.238 *L (Temp corrected) Arterial Blood pCO2 48.2 H (Temp correct) Arterial Blood pO2 77.6 L (Temp corrected) Arterial Blood HCO3 20.1 L Arterial Blood Base Excess -7.0 L Arterial Blood 95.2 Oxygen Saturation Robert Test ACCEPTAB Arterial Blood Gas Right Radial Puncture Site Arterial 0.3 Blood Carboxyhemoglobin Arterial Blood Methemoglobin 0.1 Blood Gas A-a O2 Differential 79.7 H Oxyhemoglobin Percent 94.8 Blood Gas Temperature 37.0 Blood Gas Modality NASAL CANNULA FiO2 30.0 Blood Gas Critical Value JESUS SOTO Read Back Blood Gas Notified Whom TM Blood Gas Notified Time 12/15/2018 8:03:54 AM Medications Medication Current Medications IV Flush (NS 3 ml) 3 ml PER PROTOCOL IV ; Start 12/11/18 at 19:00 Ondansetron HCl (Zofran Inj) 4 mg Q6H PRN IV NAUSEA/VOMITING; Start 12/11/18 at 19:00 Acetaminophen (Tylenol Tab) 650 mg Q6H PRN PO .PAIN 1-3 OR TEMP; Start 12/11/18 at 19:00 Acetaminophen/ Hydrocodone Bitart ([place] (5/325)) 1 tab Q6H PRN PO .MOD PAIN 4- 6; Start 12/11/18 at 19:00 Acetaminophen (Tylenol Tab) 650 mg Q6H PRN GTB MILD PAIN LEVEL 1-3; Start 12/11/18 at 19:00 Ascorbic Acid (Vitamin C) 500 mg DAILY GTB Last administered on 12/15/18at 08:00; Admin Dose 500 MG; Start 12/12/18 at 09:00 Clonidine (Catapres) 0.1 mg Q6H PRN GTB FOR SBP>160; Start 12/11/18 at 19:00 Gabapentin (Neurontin) 300 mg QHS GTB Last administered on 12/14/18at 20:39; Admin Dose 300 MG; Start 12/11/18 at 21:00 Levothyroxine Sodium (Synthroid) 75 mcg BEFORE BREAKFAST GTB Last administered on 12/15/18 06:19; Admin Dose 75 MCG; Start 12/12/18 at 07:00 Simethicone (Mylicon) 80 mg Q6H GTB Last administered on 12/15/18 12:01; Admin Dose 80 MG; Start 12/11/18 at 19:00 Albuterol/ Ipratropium (Duoneb) 3 ml Q4H RESP THERAPY PRN HHN SHORTNESS OF BREATH; Start 12/11/18 at 19:00 Piperacillin Sod/ Tazobactam Sod 100 ml @ 200 mls/hr Q6 IVPB Last administered on 12/15/18at 12:01; Admin Dose 200 MLS/HR; Start 12/12/18 at 00:00 Norepinephrine 250 ml @ 1.875 mls/ hr TITRATE IV Last administered on 12/13/18at 21:50; Admin Dose 3.75 MLS/HR; Start 12/12/18 at 05:00 IV Flush (NS 10 ml) 10 ml PRN PRN IV IV PROTOCOL; Start 12/12/18 at 17:00 Morphine Sulfate (morphine) 6 mg Q4H PRN GTB .SEVERE PAIN 7-10; Start 12/13/18 at 12:00 Dextrose/Sodium Chloride 1,000 ml @ 50 mls/hr Q20H IV Last administered on 12/15/18 07:00; Admin Dose 50 MLS/HR; Start 12/13/18 at 12:30 Mupirocin (Bactroban) 1 applic BID TOP Last administered on 12/15/18at 08:00; Admin Dose 1 APPLIC; Start 12/13/18 at 21:00; Stop 12/20/18 at 09:01 Midodrine (Proamatine) 5 mg TID@0900,1300,1700 PO Last administered on 12/15/18 12:01; Admin Dose 5 MG; Start 12/14/18 at 09:30 Vancomycin HCl (Vanco Iv Per Pharmacy) VANCOMYCIN PER PHARMACY PER PROTOCOL XX ; Start 12/14/18 at 11:30 Vancomycin HCl 250 ml @ 125 mls/hr Q12H IVPB Last administered on 12/15/18 14:13; Admin Dose 125 MLS/HR; Start 12/15/18 at 02:00 Albumin Human 100 ml @ 100 mls/hr Q8H IV Last administered on 12/15/18 08:02; Admin Dose 100 MLS/HR; Start 12/15/18 at 08:00; Stop 12/16/18 at 00:59 RAMAN NICOLAS BACKEND J[employer] DEVELOPER Dec 15, 2018 14:16
--- NOTE | 2018-12-15 14:59 | CONS ---
Assessment/Plan Assessment/Plan Assessment/Plan (Daily) Sepsis syndrome Altered mental status, baseline or metabolic, sepsis Pulmonary congestion Respiratory failure Acute versus chronic encephalopathy Fluid and electrolyte abnormality Hypothyroidism Neurogenic dysphasia status post PEG placement Family conference tomorrow morning at 1100 hrs. Consultation Date/Type/Reason Admit Date/Time Dec 11, 2018 at 20:30 Date/Time of Note DATE: 12/15/18 TIME: 14:58 Hx of Present Illness Asked to see this patient in palliative care consultation. This will be a brief note pending meeting with family members on 12/16/2018 at 1100 hrs. Patient was transferred from the fpc unit she is a 68-year-old debilitated appearing female who is history of functional quadriplegia. According medical records patient was transferred from the fpc unit altered mental st atus she is never been admitted to [facility] we have an incomplete database. Patient was admitted to the intensive care unit with sepsis syndrome encephalopathy hypothermia, encephalopathy questionable etiology baseline or respiratory failure or sepsis syndrome in addition to azotemia and fluid and electrolyte abnormalities. Patient's fluid and electrolyte abnormalities hydration status has been corrected she remains encephalopathic. It is not known with this patient's baseline cognitive abilities are, how debilitated she was prior to this admission, and patient is a full code. Past Medical History Home Meds Reported Medications Vancomycin HCl in Dextrose 5 % (Vancomycin 1.5 Gram/250 ml-D5w) 1.5 Gm/250 Ml Plast..bag, 1.5 GM IV Q48H FOR 7 DAYS,END DATE 12/17/18 12/11/18 Tuberculin,Purif.prot.deriv. (Tubersol) 5 Tub Unit/0.1 Ml Vial, 5 TUB ID QHS, VIAL EVERY 365 DAY. 12/11/18 Tramadol Hcl* (Ultram*) 50 Mg Tablet, 50 MG GTB Q6H PRN for PAIN 4-06/22, TAB 12/11/18 Simethicone* (Mylicon*) 80 Mg Tab, 80 MG GTB Q6H, TAB 12/11/18 Protein Supplement (Promod) 946 Ml Liquid, 30 ML GTB TID 12/11/18 Multivitamin/Minerals* (Multivitamin w/Min* Liq) 9 Mg/15 Ml Liquid, 30 ML GTB DAILY, ML 12/11/18 Mirtazapine* (Mirtazapine*) 7.5 Mg Tablet, 7.5 MG GTB HS, TAB 12/11/18 Metformin Hcl* (Metformin Hcl*) 500 Mg Tablet, 500 MG GTB WITH BREAKFAST DINNE, #60 TAB 12/11/18 Levothyroxine Sodium* (Levothyroxine Sodium*) 75 Mcg Tablet, 75 MCG GTB BEFORE BREAKFAST, #30 TAB 12/11/18 Gabapentin* (Gabapentin*) 300 Mg Capsule, 300 MG GTB QHS, #60 CAP 12/11/18 Ipratropium-Albuterol (Ipratropium-Albuterol) 0.5-3 Mg/3 Ml Ampul.neb, 3 ML INHALATION Q6 PRN for NEEDED, #30 VIAL 12/11/18 Clonidine Hcl* (Clonidine Hcl*) 0.1 Mg Tab, 0.1 MG GTB Q6H PRN for FOR SBP>160, TAB 12/11/18 Cefepime HCl (Cefepime HCl) 2 Gm Vial, 2 GM IV* BID, VIAL FOR 7 DAYS, END DATE 12/14/18 12/11/18 Ascorbic Acid (Vitamin C) 500 Mg Tab, 500 MG GTB DAILY, TAB 12/11/18 Acetaminophen* (Acetaminophen*) 325 Mg Tablet, 650 MG GTB Q6H PRN for MILD PAIN LEVEL 1-3, #30 TAB AND FEVER>101F 12/11/18 Medications Current Medications IV Flush (NS 3 ml) 3 ml PER PROTOCOL IV ; Start 12/11/18 at 19:00 Ondansetron HCl (Zofran Inj) 4 mg Q6H PRN IV NAUSEA/VOMITING; Start 12/11/18 at 19:00 Acetaminophen (Tylenol Tab) 650 mg Q6H PRN PO .PAIN 1-3 OR TEMP; Start 12/11/18 at 19:00 Acetaminophen/ Hydrocodone Bitart ([place] (5/325)) 1 tab Q6H PRN PO .MOD PAIN 4- 6; Start 12/11/18 at 19:00 Acetaminophen (Tylenol Tab) 650 mg Q6H PRN GTB MILD PAIN LEVEL 1-3; Start 12/11/18 at 19:00 Ascorbic Acid (Vitamin C) 500 mg DAILY GTB Last administered on 12/15/18at 08:00; Admin Dose 500 MG; Start 12/12/18 at 09:00 Clonidine (Catapres) 0.1 mg Q6H PRN GTB FOR SBP>160; Start 12/11/18 at 19:00 Gabapentin (Neurontin) 300 mg QHS GTB Last administered on 12/14/18 20:39; Admin Dose 300 MG; Start 12/11/18 at 21:00 Levothyroxine Sodium (Synthroid) 75 mcg BEFORE BREAKFAST GTB Last administered on 12/15/18 06:19; Admin Dose 75 MCG; Start 12/12/18 at 07:00 Simethicone (Mylicon) 80 mg Q6H GTB Last administered on 12/15/18 12:01; Admin Dose 80 MG; Start 12/11/18 at 19:00 Albuterol/ Ipratropium (Duoneb) 3 ml Q4H RESP THERAPY PRN HHN SHORTNESS OF BREATH; Start 12/11/18 at 19:00 Piperacillin Sod/ Tazobactam Sod 100 ml @ 200 mls/hr Q6 IVPB Last administered on 12/15/18 12:01; Admin Dose 200 MLS/HR; Start 12/12/18 at 00:00 Norepinephrine 250 ml @ 1.875 mls/ hr TITRATE IV Last administered on 12/13/18 21:50; Admin Dose 3.75 MLS/HR; Start 12/12/18 at 05:00 IV Flush (NS 10 ml) 10 ml PRN PRN IV IV PROTOCOL; Start 12/12/18 at 17:00 Morphine Sulfate (morphine) 6 mg Q4H PRN GTB .SEVERE PAIN 7-10; Start 12/13/18 at 12:00 Dextrose/Sodium Chloride 1,000 ml @ 50 mls/hr Q20H IV Last administered on 12/15/18 07:00; Admin Dose 50 MLS/HR; Start 12/13/18 at 12:30 Mupirocin (Bactroban) 1 applic BID TOP Last administered on 12/15/18 08:00; Admin Dose 1 APPLIC; Start 12/13/18 at 21:00; Stop 12/20/18 at 09:01 Midodrine (Proamatine) 5 mg TID@0900,1300,1700 PO Last administered on 12/15/18 12:01; Admin Dose 5 MG; Start 12/14/18 at 09:30 Vancomycin HCl (Vanco Iv Per Pharmacy) VANCOMYCIN PER PHARMACY PER PROTOCOL XX ; Start 12/14/18 at 11:30 Vancomycin HCl 250 ml @ 125 mls/hr Q12H IVPB Last administered on 12/15/18at 14:13; Admin Dose 125 MLS/HR; Start 12/15/18 at 02:00 Albumin Human 100 ml @ 100 mls/hr Q8H IV Last administered on 12/15/18at 08:02; Admin Dose 100 MLS/HR; Start 12/15/18 at 08:00; Stop 12/16/18 at 00:59 Miscellaneous Information (*Rx Drug Level Order Reminder*) VANCO TROUGH @ 0,100 ON... 0100 ONCE XX ; Start 12/16/18 at 01:00; Stop 12/16/18 at 01:01 Allergies: Coded Allergies: benazepril (Unverified Allergy, Unknown, 12/11/18) Past Surgical History Past Surgical Hx: other (unknown orthopedic surgery) Social History Alcohol Use: none Smoking Status: Unknown if ever smoked Drug Use: none, other (Incomplete database) Exam/Review of Systems Exam Vitals Vital Signs Date Temp Pulse Resp B/P (MAP) Pulse Ox O2 O2 Flow FiO2 Time Delivery Rate 12/15/18 71 17 126/79 99 13:00 (95) 12/15/18 98.9 12:00 12/15/18 Nasal 10:00 Cannula 12/15/18 3.0 08:00 Intake and Output 12/14/18 12/14/18 12/15/18 1515:00 23:00 07:00 IntakeIntake Total 1292.625 ml 1435.38 ml 1563.752 ml OutputOutput Total 415 ml 345 ml 750 ml BalanceBalance 877.625 ml 1090.38 ml 813.752 ml Constitutional: non-verbal, frail Head: normocephalic, atraumatic; No lacerations, No hematomas, No other Neck: supple, non-tender; No jvd, No bruits, No masses, No thyromegaly, No nuchal rigidity, No other Respiratory: congested cough, diminished breath sounds Cardiovascular: regular rate and rhythm, nl pulses; No bruits, No diastolic murmur, No edema, No gallop, No irregular rhythm, No jugular venous distention (JVD), No murmurs/extra sounds, No rub, No systolic murmur, No S3, No S4, No other Neurological: lethargic (Difficult to arouse, does not follow simple commands no spontaneous motor activity) Results Result Diagram: 12/15/18 0426 12/15/18 0500 Results 24hrs Laboratory Tests Test 12/15/18 04:26 12/15/18 05:00 12/15/18 07:00 White Blood Count 10.5 Red Blood Count 2.96 L Hemoglobin 8.2 L Hematocrit 26.8 L Mean Corpuscular Volume 90.5 Mean Corpuscular Hemoglobin 27.7 L Mean Corpuscular 30.6 L Hemoglobin Concent Red Cell Distribution Width 15.8 H Platelet Count 238 Mean Platelet Volume 9.9 Immature Granulocytes % 1.800 H Neutrophils % 79.3 H Lymphocytes % 11.3 L Monocytes % 6.5 Eosinophils % 0.9 Basophils % 0.2 Nucleated Red Blood Cells % 1.0 H Immature Granulocytes # 0.190 H Neutrophils # 8.3 H Lymphocytes # 1.2 Monocytes # 0.7 Eosinophils # 0.1 Basophils # 0.0 Nucleated Red Blood Cells # 0.1 H Sodium Level 144 Potassium Level 4.5 Chloride Level 115 H Carbon Dioxide Level 20 L Anion Gap 9 Blood Urea Nitrogen 69 H Creatinine 0.73 Est Glomerular Filtrat > 60 Rate mL/min Glucose Level 100 # Calcium Level 8.6 Blood Gas Specimen Source Blood arterial Arterial Blood Date Drawn 12/15/2018 7:20:50 AM Arterial Blood pH 7.238 *L (Temp corrected) Arterial Blood pCO2 48.2 H (Temp correct) Arterial Blood pO2 77.6 L (Temp corrected) Arterial Blood HCO3 20.1 L Arterial Blood Base Excess -7.0 L Arterial Blood 95.2 Oxygen Saturation Robert Test ACCEPTAB Arterial Blood Gas Right Radial Puncture Site Arterial 0.3 Blood Carboxyhemoglobin Arterial Blood Methemoglobin 0.1 Blood Gas A-a O2 Differential 79.7 H Oxyhemoglobin Percent 94.8 Blood Gas Temperature 37.0 Blood Gas Modality NASAL CANNULA FiO2 30.0 Blood Gas Critical Value JESUS SOTO Read Back Blood Gas Notified Whom TM Blood Gas Notified Time 12/15/2018 8:03:54 AM Medications Medication Current Medications IV Flush (NS 3 ml) 3 ml PER PROTOCOL IV ; Start 12/11/18 at 19:00 Ondansetron HCl (Zofran Inj) 4 mg Q6H PRN IV NAUSEA/VOMITING; Start 12/11/18 at 19:00 Acetaminophen (Tylenol Tab) 650 mg Q6H PRN PO .PAIN 1-3 OR TEMP; Start 12/11/18 at 19:00 Acetaminophen/ Hydrocodone Bitart ([place] (5/325)) 1 tab Q6H PRN PO .MOD PAIN 4- 6; Start 12/11/18 at 19:00 Acetaminophen (Tylenol Tab) 650 mg Q6H PRN GTB MILD PAIN LEVEL 1-3; Start 12/11/18 at 19:00 Ascorbic Acid (Vitamin C) 500 mg DAILY GTB Last administered on 12/15/18 08:00; Admin Dose 500 MG; Start 12/12/18 at 09:00 Clonidine (Catapres) 0.1 mg Q6H PRN GTB FOR SBP>160; Start 12/11/18 at 19:00 Gabapentin (Neurontin) 300 mg QHS GTB Last administered on 12/14/18 20:39; Admin Dose 300 MG; Start 12/11/18 at 21:00 Levothyroxine Sodium (Synthroid) 75 mcg BEFORE BREAKFAST GTB Last administered on 12/15/18 06:19; Admin Dose 75 MCG; Start 12/12/18 at 07:00 Simethicone (Mylicon) 80 mg Q6H GTB Last administered on 12/15/18 12:01; Admin Dose 80 MG; Start 12/11/18 at 19:00 Albuterol/ Ipratropium (Duoneb) 3 ml Q4H RESP THERAPY PRN HHN SHORTNESS OF BREATH; Start 12/11/18 at 19:00 Piperacillin Sod/ Tazobactam Sod 100 ml @ 200 mls/hr Q6 IVPB Last administered on 12/15/18 12:01; Admin Dose 200 MLS/HR; Start 12/12/18 at 00:00 Norepinephrine 250 ml @ 1.875 mls/ hr TITRATE IV Last administered on 12/13/18 21:50; Admin Dose 3.75 MLS/HR; Start 12/12/18 at 05:00 IV Flush (NS 10 ml) 10 ml PRN PRN IV IV PROTOCOL; Start 12/12/18 at 17:00 Morphine Sulfate (morphine) 6 mg Q4H PRN GTB .SEVERE PAIN 7-10; Start 12/13/18 at 12:00 Dextrose/Sodium Chloride 1,000 ml @ 50 mls/hr Q20H IV Last administered on 12/15/18at 07:00; Admin Dose 50 MLS/HR; Start 12/13/18 at 12:30 Mupirocin (Bactroban) 1 applic BID TOP Last administered on 12/15/18at 08:00; Admin Dose 1 APPLIC; Start 12/13/18 at 21:00; Stop 12/20/18 at 09:01 Midodrine (Proamatine) 5 mg TID@0900,1300,1700 PO Last administered on 12/15/18at 12:01; Admin Dose 5 MG; Start 12/14/18 at 09:30 Vancomycin HCl (Vanco Iv Per Pharmacy) VANCOMYCIN PER PHARMACY PER PROTOCOL XX ; Start 12/14/18 at 11:30 Vancomycin HCl 250 ml @ 125 mls/hr Q12H IVPB Last administered on 12/15/18at 14:13; Admin Dose 125 MLS/HR; Start 12/15/18 at 02:00 Albumin Human 100 ml @ 100 mls/hr Q8H IV Last administered on 12/15/18at 08:02; Admin Dose 100 MLS/HR; Start 12/15/18 at 08:00; Stop 12/16/18 at 00:59 Miscellaneous Information (*Rx Drug Level Order Reminder*) VANCO TROUGH @ 0,100 ON... 0100 ONCE XX ; Start 12/16/18 at 01:00; Stop 12/16/18 at 01:01 ANGIE HARDING Dec 15, 2018 14:59
[2018-12-15] MEDS: FLUCONAZOLE 100 MG TAB PO SCH (15:31)
[2018-12-15] MEDS: GABAPENTIN 300 MG CAP GTB SCH (21:29)
[2018-12-16] VITALS (94 sets, daily range): BP systolic 63–143; BP diastolic 47–101; PULSE 57–81; RESP 12–29
[2018-12-16] MEDS: PIPER-TAZO 3.375 GM IV (PMX) 100 ML IVPB SCH ×5 (00:54→23:03)
[2018-12-16] MEDS: ALBUMIN HUMAN 25% 100 ML IV SCH (00:54)
[2018-12-16] MEDS: VANCOMYCIN 1 GM 250 ML IVPB SCH (02:18)
[2018-12-16] MEDS: DEXTROSE 5%-0.225% NACL 1,000 ML IV SCH ×2 (02:22→22:58)
[2018-12-16] MEDS: LEVOTHYROXINE 75 MCG TAB GTB SCH (07:06)
--- NOTE | 2018-12-16 07:59 | PN ---
DATE: 12/16/2018 SUBJECTIVE: The patient remains critically ill on pressor support. The patient had no other acute e vents noted. A Doppler lower extremity ultrasound shows bilateral DVT. There are no reports of any hemoptysis, he matemesis. OBJECTIVE: VITAL SIGNS: Blood pressure is 100/68, respirations 16, pulse 66, temperature 98.6. HEENT: Head is normocephalic. NECK: Shows trach. HEART: Regular rate. LUNGS: Show diminished breath sounds at the base. ABDOMEN: Soft, nontender to palpation without rebound or guarding. EXTREMITIES: Negative for clubbing, cyanosis, positive edema. DERMATOLOGIC: No rashes. MUSCULOSKELETAL: No joint effusion. NEUROLOGIC: No change in exam. MEDICATIONS: Reviewed. LABORATORY DATA: Shows sodium 146, potassium 4.3, BUN 58, creatinine 0.67. White count 9.0, hemoglo bin 8.4, platelet count is 217. IMAGING STUDIES: The patient's imaging studies have been reviewed. ASSESSMENT AND PLAN: 1. Nonoliguric acute kidney injury with unknown baseline creatinine. Etiology of acute kidney injur y is secondary to hemodynamics, sepsis. The patient's renal function has been improving with support camila care. We will continue current treatment plan. Continue pressor support, maintain MAP of 65. C ontinue IV hydration. Continue antibiotic therapy. 2. 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 The patient, greg molina is in acute kidney injury and appears to be recovering. The plan is to repeat a urine protein crea tinine ratio, albumin/creatinine ratio. Defer MICHAELA inhibitor or ARB at this time until renal function and hemodynamics are stabilized. 3. Hypernatremia. Continue free water flushes. Continue hypertonic fluid. 4. Metabolic acidosis secondary to acute kidney injury, improving. Continue to monitor. 5. Anemia. Monitor hemoglobin and hematocrit levels. 6. Septic shock secondary to urinary tract infection and pneumonia. Continue current medical manage ment. Continue pressor support, IV fluids, IV antibiotics. 7. Chronic respiratory failure, status post trach. The patient is currently stable on trach mask. 8. Acute encephalopathy. Etiology is toxic metabolic. 9. Hypothyroidism. Continue Synthroid. 10. Bilateral lower extremity deep venous thrombosis. Continue medical management. 11. Quadriplegia secondary to C spine injury. Dictated By: MARINO GARDNER/KYLE Conf#: [id number] DID#: [id number] CC: ZACH GROVER MD; CRUZ GORDILLO MD; JOANNE FLORES MD;*EndCC*
[2018-12-16] MEDS: FLUCONAZOLE 100 MG TAB PO SCH (08:10)
[2018-12-16] MEDS: MUPIROCIN 2% 22 GM OINT TOP SCH ×2 (08:10→20:18)
[2018-12-16] MEDS: MIDODRINE 5 MG TAB PO SCH ×3 (08:10→17:22)
[2018-12-16] MEDS: ASCORBIC ACID 500 MG TAB GTB SCH (08:10)
[2018-12-16] MEDS ORDERED: HEPARIN 1000 UNITS/ML 10 ML INJ IV PRN ×2 (09:00)
[2018-12-16] MEDS: HEPARIN 25000 UNITS/250 ML 250 ML IV SCH (09:44)
--- NOTE | 2018-12-16 10:27 | PN ---
Date/Time of Note Date/Time of Note DATE: 12/16/18 TIME: 10:27 Assessment/Plan VTE Prophylaxis Risk score (from Ns)>0 risk: 13 SCD applied (from Nsg): No SCD contraindicated: other (mignon dvt) Pharmacological prophylaxis: heparin (gtt) Lines/Catheters IV Catheter Type (from Nrsg): PICC Line Central line still needed: Yes Urinary Cath still in place: Yes Reason Cath still needed: other (indicate) Assessment/Plan Hospital Course S: remains able to verbalize "hi" and follow simple commands Objective: Constitutional: barely verbal, can try to smile, Eyes open spontaneously, No obvious distress Psych: other (unable to assess) Head: normocephalic, atraumatic Eyes: PERRL, No icteric ENMT: trach to vent Respiratory: coarse b/s bilaterally No labored breathing Cardiovascular: bradycardia on tele No murmurs/extra sounds Gastrointestinal: soft, doesn't seem tender, bowel sounds, other (PEG tube noted with no cellulitis or discharge) Genitourinary - Female: nl external genitalia, sequeira to bs drainage Extremities: Chronic msc wasting, 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 Severe sepsis with septic shock 2/2 #2 2. UTI and mignon asp pneumonia -UA from 12/14/18 continues to show infection 3. altered mental status : resolved? -acute on chronic -seems to be at baseline, continue to monitor 4. Chronic encephalopathy with functional quadriplegia and chronic respiratory failure -Resides in a assisted facility -prev CVA 5. Severe hypochromic anemia -transfused 1 unit 12/12/18, will give another unit to optimize 6. Hypernatremic dehydration with mild KINGSLEY : improving -free water 200 q4h 7. hypothyroidism -resumed on home synthroid 8. Acute on chronic resp failure -chronically vent dependent via trach 9. Chronic Neurogenic dysphagia s/p PEG 10. metabolic acidosis, likely from sepsis 11. Extensive DVT mignon, with possible PE Dispo: -continue ICU care and wean off pressors -continues on Midodrine per Pulm -all cultures remain negative, but patient was on cefepime prior to admit -ID to adjust abx, will also have nursing change sequeira -nephro managing fluids -Heparin drip -Family meeting to review goals of care today at 11am with palliative care -Continue all other measures -further interventions per course CRITICAL CARE TIME: >35 mins Result Diagram: 12/16/18 0500 12/16/18 0500 Results 24hrs Laboratory Tests Test 12/15/18 23:00 12/16/18 00:53 12/16/18 05:00 Blood Gas Specimen Source Blood arterial Arterial Blood Date Drawn 12/15/2018 11:00:06 PM Arterial Blood pH 7.257 *L (Temp corrected) Arterial Blood pCO2 44.4 (Temp correct) Arterial Blood pO2 68.8 L (Temp corrected) Arterial Blood HCO3 19.3 L Arterial Blood Base Excess -7.4 L Arterial Blood 94.1 L Oxygen Saturation Robert Test ACCEPTAB Arterial Blood Gas Left Radial Puncture Site Arterial 0.3 Blood Carboxyhemoglobin Arterial Blood Methemoglobin 0.1 Blood Gas A-a O2 Differential 310.2 H Oxyhemoglobin Percent 93.7 Blood Gas Temperature 37.0 Blood Gas Actual 17 Respiration Rate Blood Gas Modality TRACH COLLAR FiO2 60.0 Blood Gas Critical Value JOAO SOTO Read Back Blood Gas Notified Whom MA Blood Gas Notified Time 12/15/2018 11:15:58 PM Vancomycin Level Trough 34.6 *H White Blood Count 9.0 Red Blood Count 2.97 L Hemoglobin 8.4 L Hematocrit 27.0 L Mean Corpuscular Volume 90.9 Mean Corpuscular Hemoglobin 28.3 L Mean Corpuscular 31.1 L Hemoglobin Concent Red Cell Distribution Width 15.9 H Platelet Count 217 Mean Platelet Volume 10.1 Immature Granulocytes % 1.000 H Neutrophils % 82.1 H Lymphocytes % 11.5 L Monocytes % 4.7 Eosinophils % 0.4 Basophils % 0.3 Nucleated Red Blood Cells % 1.0 H Immature Granulocytes # 0.090 H Neutrophils # 7.4 Lymphocytes # 1.0 Monocytes # 0.4 Eosinophils # 0.0 Basophils # 0.0 Nucleated Red Blood Cells # 0.1 H Sodium Level 146 H Potassium Level 4.3 Chloride Level 119 H Carbon Dioxide Level 21 Anion Gap 6 Blood Urea Nitrogen 58 H Creatinine 0.67 Est Glomerular Filtrat > 60 Rate mL/min Glucose Level 115 Calcium Level 8.7 Phosphorus Level 2.9 Magnesium Level 1.7 Exam/Review of Systems Exam Vitals Vital Signs Date Temp Pulse Resp B/P (MAP) Pulse Ox O2 O2 Flow FiO2 Time Delivery Rate 12/16/18 64 19 101/66 100 10:15 (78) 12/16/18 Trach 10:00 Collar 12/16/18 8.0 40 07:20 12/16/18 97.4 04:00 Intake and Output 12/15/18 12/15/18 12/16/18 1515:00 23:00 07:00 IntakeIntake Total 963.7 ml 1576.25 ml 1233.1305 ml OutputOutput Total 510 ml 410 ml 955 ml BalanceBalance 453.7 ml 1166.25 ml 278.1305 ml Results Results 24hrs Laboratory Tests Test 12/15/18 23:00 12/16/18 00:53 12/16/18 05:00 Blood Gas Specimen Source Blood arterial Arterial Blood Date Drawn 12/15/2018 11:00:06 PM Arterial Blood pH 7.257 *L (Temp corrected) Arterial Blood pCO2 44.4 (Temp correct) Arterial Blood pO2 68.8 L (Temp corrected) Arterial Blood HCO3 19.3 L Arterial Blood Base Excess -7.4 L Arterial Blood 94.1 L Oxygen Saturation Robert Test ACCEPTAB Arterial Blood Gas Left Radial Puncture Site Arterial 0.3 Blood Carboxyhemoglobin Arterial Blood Methemoglobin 0.1 Blood Gas A-a O2 Differential 310.2 H Oxyhemoglobin Percent 93.7 Blood Gas Temperature 37.0 Blood Gas Actual 17 Respiration Rate Blood Gas Modality TRACH COLLAR FiO2 60.0 Blood Gas Critical Value JOAO SOTO Read Back Blood Gas Notified Whom SOLO Blood Gas Notified Time 12/15/2018 11:15:58 PM Vancomycin Level Trough 34.6 *H White Blood Count 9.0 Red Blood Count 2.97 L Hemoglobin 8.4 L Hematocrit 27.0 L Mean Corpuscular Volume 90.9 Mean Corpuscular Hemoglobin 28.3 L Mean Corpuscular 31.1 L Hemoglobin Concent Red Cell Distribution Width 15.9 H Platelet Count 217 Mean Platelet Volume 10.1 Immature Granulocytes % 1.000 H Neutrophils % 82.1 H Lymphocytes % 11.5 L Monocytes % 4.7 Eosinophils % 0.4 Basophils % 0.3 Nucleated Red Blood Cells % 1.0 H Immature Granulocytes # 0.090 H Neutrophils # 7.4 Lymphocytes # 1.0 Monocytes # 0.4 Eosinophils # 0.0 Basophils # 0.0 Nucleated Red Blood Cells # 0.1 H Sodium Level 146 H Potassium Level 4.3 Chloride Level 119 H Carbon Dioxide Level 21 Anion Gap 6 Blood Urea Nitrogen 58 H Creatinine 0.67 Est Glomerular Filtrat > 60 Rate mL/min Glucose Level 115 Calcium Level 8.7 Phosphorus Level 2.9 Magnesium Level 1.7 Medications Medication Current Medications IV Flush (NS 3 ml) 3 ml PER PROTOCOL IV ; Start 12/11/18 at 19:00 Ondansetron HCl (Zofran Inj) 4 mg Q6H PRN IV NAUSEA/VOMITING; Start 12/11/18 at 19:00 Acetaminophen (Tylenol Tab) 650 mg Q6H PRN PO .PAIN 1-3 OR TEMP; Start 12/11/18 at 19:00 Acetaminophen/ Hydrocodone Bitart ([place] (5/325)) 1 tab Q6H PRN PO .MOD PAIN 4- 6; Start 12/11/18 at 19:00 Acetaminophen (Tylenol Tab) 650 mg Q6H PRN GTB MILD PAIN LEVEL 1-3; Start 12/11/18 at 19:00 Ascorbic Acid (Vitamin C) 500 mg DAILY GTB Last administered on 12/16/18at 08:10; Admin Dose 500 MG; Start 12/12/18 at 09:00 Clonidine (Catapres) 0.1 mg Q6H PRN GTB FOR SBP>160; Start 12/11/18 at 19:00 Gabapentin (Neurontin) 300 mg QHS GTB Last administered on 12/15/18 21:29; Admin Dose 300 MG; Start 12/11/18 at 21:00 Levothyroxine Sodium (Synthroid) 75 mcg BEFORE BREAKFAST GTB Last administered on 12/16/18at 07:06; Admin Dose 75 MCG; Start 12/12/18 at 07:00 Simethicone (Mylicon) 80 mg Q6H GTB Last administered on 12/16/18 07:06; Admin Dose 80 MG; Start 12/11/18 at 19:00 Albuterol/ Ipratropium (Duoneb) 3 ml Q4H RESP THERAPY PRN HHN SHORTNESS OF BREATH; Start 12/11/18 at 19:00 Piperacillin Sod/ Tazobactam Sod 100 ml @ 200 mls/hr Q6 IVPB Last administered on 12/16/18at 05:12; Admin Dose 200 MLS/HR; Start 12/12/18 at 00:00 Norepinephrine 250 ml @ 1.875 mls/ hr TITRATE IV Last administered on 12/13/18at 21:50; Admin Dose 3.75 MLS/HR; Start 12/12/18 at 05:00 IV Flush (NS 10 ml) 10 ml PRN PRN IV IV PROTOCOL; Start 12/12/18 at 17:00 Morphine Sulfate (morphine) 6 mg Q4H PRN GTB .SEVERE PAIN 7-10; Start 12/13/18 at 12:00 Dextrose/Sodium Chloride 1,000 ml @ 50 mls/hr Q20H IV Last administered on 12/16/18 02:22; Admin Dose 50 MLS/HR; Start 12/13/18 at 12:30 Mupirocin (Bactroban) 1 applic BID TOP Last administered on 12/16/18 08:10; Admin Dose 1 APPLIC; Start 12/13/18 at 21:00; Stop 12/20/18 at 09:01 Midodrine (Proamatine) 5 mg TID@0900,1300,1700 PO Last administered on 12/16/18 08:10; Admin Dose 5 MG; Start 12/14/18 at 09:30 Vancomycin HCl (Vanco Iv Per Pharmacy) VANCOMYCIN PER PHARMACY PER PROTOCOL XX ; Start 12/14/18 at 11:30 Vancomycin HCl 250 ml @ 125 mls/hr Q12H IVPB Last administered on 12/16/18 02:18; Admin Dose 125 MLS/HR; Start 12/15/18 at 02:00; Status Hold Fluconazole (Diflucan) 100 mg DAILY PO Last administered on 12/16/18 08:10; Admin Dose 100 MG; Start 12/15/18 at 15:00 Heparin Sodium (Porcine) (Heparin (1000 Units/ml)) 6,900 unit PER PROTOCOL PRN IV aPTT<47 Last administered on 12/16/18at 09:45; Admin Dose 6,900 UNIT; Start 12/16/18 at 09:00 Heparin Sodium (Porcine) (Heparin (1000 Units/ml)) 3,500 unit PER PROTOCOL PRN IV aPTT<47-57; Start 12/16/18 at 09:00 Heparin Sodium (Porcine) 250 ml @ 15.545 mls/ hr PER PROTOCOL IV Last administered on 12/16/18at 09:44; Admin Dose 15.5 MLS/HR; Start 12/16/18 at 09:00 JOSE J DEMPSEY Dec 16, 2018 10:27
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
--- NOTE | 2018-12-16 13:43 | CONS ---
Consult Date/Type/Reason Admit Date/Time Dec 11, 2018 at 20:30 Initial Consult Date 12/13/18 Type of Consult Pulmonary Requesting Provider: JOSE J DEMPSEY Date/Time of Note DATE: 12/16/18 TIME: 13:37 Subjective Patient remains vasopressor dependent. Objective Vital Signs Date Temp Pulse Resp B/P (MAP) Pulse Ox O2 O2 Flow FiO2 Time Delivery Rate 12/16/18 69 23 121/75 99 Trach 13:00 (90) Collar 12/16/18 97.5 12:00 12/16/18 8.0 50 11:48 Intake and Output 12/15/18 12/15/18 12/16/18 1515:00 23:00 07:00 IntakeIntake Total 963.7 ml 1576.25 ml 1233.1305 ml OutputOutput Total 510 ml 410 ml 955 ml BalanceBalance 453.7 ml 1166.25 ml 278.1305 ml Exam GENERAL: Frail elderly lady comfortable at rest tracheostomy in place VITAL SIGNS: per chart NECK: Supple. No JVD or lymphadenopathy. CARDIAC EXAM: S1, S2. No added sounds or murmurs. CHEST: clear bilaterally, No added sounds, rales or wheezes ABDOMEN: Soft, nontender. No guarding or rebound. EXTREMITIES: No cyanosis, clubbing or edema. NEUROLOGIC: Generalized weakness. Vent Setting Fraction of Inspired Oxygen pe: 50 Results/Medications Result Diagram: 12/16/18 0500 12/16/18 0500 Results 24 hrs Laboratory Tests Test 12/15/18 23:00 12/16/18 00:53 12/16/18 05:00 Blood Gas Specimen Source Blood arterial Arterial Blood Date Drawn 12/15/2018 11:00:06 PM Arterial Blood pH 7.257 *L (Temp corrected) Arterial Blood pCO2 44.4 (Temp correct) Arterial Blood pO2 68.8 L (Temp corrected) Arterial Blood HCO3 19.3 L Arterial Blood Base Excess -7.4 L Arterial Blood 94.1 L Oxygen Saturation Robert Test ACCEPTAB Arterial Blood Gas Left Radial Puncture Site Arterial 0.3 Blood Carboxyhemoglobin Arterial Blood Methemoglobin 0.1 Blood Gas A-a O2 Differential 310.2 H Oxyhemoglobin Percent 93.7 Blood Gas Temperature 37.0 Blood Gas Actual 17 Respiration Rate Blood Gas Modality TRACH COLLAR FiO2 60.0 Blood Gas Critical Value JOAO RN Read Back Blood Gas Notified Whom MA Blood Gas Notified Time 12/15/2018 11:15:58 PM Vancomycin Level Trough 34.6 *H White Blood Count 9.0 Red Blood Count 2.97 L Hemoglobin 8.4 L Hematocrit 27.0 L Mean Corpuscular Volume 90.9 Mean Corpuscular Hemoglobin 28.3 L Mean Corpuscular 31.1 L Hemoglobin Concent Red Cell Distribution Width 15.9 H Platelet Count 217 Mean Platelet Volume 10.1 Immature Granulocytes % 1.000 H Neutrophils % 82.1 H Lymphocytes % 11.5 L Monocytes % 4.7 Eosinophils % 0.4 Basophils % 0.3 Nucleated Red Blood Cells % 1.0 H Immature Granulocytes # 0.090 H Neutrophils # 7.4 Lymphocytes # 1.0 Monocytes # 0.4 Eosinophils # 0.0 Basophils # 0.0 Nucleated Red Blood Cells # 0.1 H Sodium Level 146 H Potassium Level 4.3 Chloride Level 119 H Carbon Dioxide Level 21 Anion Gap 6 Blood Urea Nitrogen 58 H Creatinine 0.67 Est Glomerular Filtrat > 60 Rate mL/min Glucose Level 115 Calcium Level 8.7 Phosphorus Level 2.9 Magnesium Level 1.7 Medications Current Medications IV Flush (NS 3 ml) 3 ml PER PROTOCOL IV ; Start 12/11/18 at 19:00 Ondansetron HCl (Zofran Inj) 4 mg Q6H PRN IV NAUSEA/VOMITING; Start 12/11/18 at 19:00 Acetaminophen (Tylenol Tab) 650 mg Q6H PRN PO .PAIN 1-3 OR TEMP; Start 12/11/18 at 19:00 Acetaminophen/ Hydrocodone Bitart ([place] (5/325)) 1 tab Q6H PRN PO .MOD PAIN 4- 6; Start 12/11/18 at 19:00 Acetaminophen (Tylenol Tab) 650 mg Q6H PRN GTB MILD PAIN LEVEL 1-3; Start 12/11/18 at 19:00 Ascorbic Acid (Vitamin C) 500 mg DAILY GTB Last administered on 12/16/18at 08:10; Admin Dose 500 MG; Start 12/12/18 at 09:00 Clonidine (Catapres) 0.1 mg Q6H PRN GTB FOR SBP>160; Start 12/11/18 at 19:00 Gabapentin (Neurontin) 300 mg QHS GTB Last administered on 12/15/18 21:29; Admin Dose 300 MG; Start 12/11/18 at 21:00 Levothyroxine Sodium (Synthroid) 75 mcg BEFORE BREAKFAST GTB Last administered on 12/16/18 07:06; Admin Dose 75 MCG; Start 12/12/18 at 07:00 Simethicone (Mylicon) 80 mg Q6H GTB Last administered on 12/16/18 12:12; Admin Dose 80 MG; Start 12/11/18 at 19:00 Albuterol/ Ipratropium (Duoneb) 3 ml Q4H RESP THERAPY PRN HHN SHORTNESS OF BREATH; Start 12/11/18 at 19:00 Piperacillin Sod/ Tazobactam Sod 100 ml @ 200 mls/hr Q6 IVPB Last administered on 12/16/18 12:11; Admin Dose 200 MLS/HR; Start 12/12/18 at 00:00 Norepinephrine 250 ml @ 1.875 mls/ hr TITRATE IV Last administered on 12/13/18 21:50; Admin Dose 3.75 MLS/HR; Start 12/12/18 at 05:00 IV Flush (NS 10 ml) 10 ml PRN PRN IV IV PROTOCOL; Start 12/12/18 at 17:00 Morphine Sulfate (morphine) 6 mg Q4H PRN GTB .SEVERE PAIN 7-10; Start 12/13/18 at 12:00 Dextrose/Sodium Chloride 1,000 ml @ 50 mls/hr Q20H IV Last administered on 12/16/18 02:22; Admin Dose 50 MLS/HR; Start 12/13/18 at 12:30 Mupirocin (Bactroban) 1 applic BID TOP Last administered on 12/16/18 08:10; Admin Dose 1 APPLIC; Start 12/13/18 at 21:00; Stop 12/20/18 at 09:01 Midodrine (Proamatine) 5 mg TID@0900,1300,1700 PO Last administered on 12/16/18 12:12; Admin Dose 5 MG; Start 12/14/18 at 09:30 Vancomycin HCl (Vanco Iv Per Pharmacy) VANCOMYCIN PER PHARMACY PER PROTOCOL XX ; Start 12/14/18 at 11:30 Vancomycin HCl 250 ml @ 125 mls/hr Q12H IVPB Last administered on 12/16/18at 02:18; Admin Dose 125 MLS/HR; Start 12/15/18 at 02:00; Status Hold Fluconazole (Diflucan) 100 mg DAILY PO Last administered on 12/16/18at 08:10; A dmin Dose 100 MG; Start 12/15/18 at 15:00 Heparin Sodium (Porcine) (Heparin (1000 Units/ml)) 6,900 unit PER PROTOCOL PRN IV aPTT<47 Last administered on 12/16/18at 09:45; Admin Dose 6,900 UNIT; Start 12/16/18 at 09:00 Heparin Sodium (Porcine) (Heparin (1000 Units/ml)) 3,500 unit PER PROTOCOL PRN IV aPTT<47-57; Start 12/16/18 at 09:00 Heparin Sodium (Porcine) 250 ml @ 15.545 mls/ hr PER PROTOCOL IV Last administered on 12/16/18at 09:44; Admin Dose 15.5 MLS/HR; Start 12/16/18 at 09:00 Miscellaneous Information (*Rx Drug Level Order Reminder*) VANCO RANDOM W/ AM LABS... 0500 ONCE XX ; Start 12/17/18 at 05:00; Stop 12/17/18 at 05:01 Assessment/Plan Hospital Course (Demo Recall) Assessment 1. Chronic respiratory failure with tracheostomy 2. Septic shock secondary to UTI 3. History of upper extremity deep vein thrombosis Plan 1. Continue vasopressors titrate to map greater than 65 2. Continue tube feeding if tolerated 3. Family conference regarding goals of care Overall prognosis guarded Critical care time 40 minutes JOYCELYN SHEPARD MD, [facility] Dec 16, 2018 13:43
--- NOTE | 2018-12-16 14:52 | CONS ---
Assessment/Plan Assessment/Plan Hospital Course (Demo Recall) Remains on low-dose levo fed and heparin drip no fevers overnight she is in no distress WBC 9 platelets 217 neutrophils 82.1 BUN 58 creatinine 0.67 Microbiology: Blood cultures remain negative, MRSA swab positive sputum culture neg Urinalysis revealed many budding yeast Chest x-ray this morning revealed no significant change Antimicrobials: Vancomycin, Zosyn Diflucan Microbiology: Blood urine and influenza swab negative, MRSA swab positive Indwelling: Trach PEG [place], PICC line Physical examination: Chronically ill-appearing elderly woman who is awake in no distress. Head atraumatic normocephalic sclera nonicteric neck is supple tracheostomy present Passy-Matt valve present chest rise symmetrical breath sounds diminished to bases with scattered rhonchi. Heart: S1-S2. Abdomen soft bowel sounds present. Extremities with dependent edema. Assessment: 1. Sepsis, s/p shock 2. Healthcare associated pneumonia 3. Urinary tract infection per urinalysis 4. MRSA nares colonization 5. Chronic respiratory failure and dysphagia 6. Bilateral lower extremities DVT Plan: Remains unchanged, DNR status noted, continue present care, antibiotics Consultation Date/Type/Reason Admit Date/Time Dec 11, 2018 at 20:30 Initial Consult Date 12/13/18 Type of Consult id Requesting Provider: JOSE J DEMPSEY Date/Time of Note DATE: 12/16/18 TIME: 14:51 Exam/Review of Systems Exam Vitals Vital Signs Date Temp Pulse Resp B/P (MAP) Pulse Ox O2 O2 Flow FiO2 Time Delivery Rate 12/16/18 74 24 120/75 99 Trach 14:00 (90) Collar 12/16/18 97.5 12:00 12/16/18 8.0 50 11:48 Intake and Output 12/15/18 12/15/18 12/16/18 1414:59 22:59 06:59 IntakeIntake Total 1214.638 ml 1372.50 ml 1434.0805 ml OutputOutput Total 530 ml 390 ml 930 ml BalanceBalance 684.638 ml 982.50 ml 504.0805 ml Results Result Diagram: 12/16/18 0500 12/16/18 0500 Results 24hrs Laboratory Tests Test 12/15/18 23:00 12/16/18 00:53 12/16/18 05:00 Blood Gas Specimen Source Blood arterial Arterial Blood Date Drawn 12/15/2018 11:00:06 PM Arterial Blood pH 7.257 *L (Temp corrected) Arterial Blood pCO2 44.4 (Temp correct) Arterial Blood pO2 68.8 L (Temp corrected) Arterial Blood HCO3 19.3 L Arterial Blood Base Excess -7.4 L Arterial Blood 94.1 L Oxygen Saturation Robert Test ACCEPTAB Arterial Blood Gas Left Radial Puncture Site Arterial 0.3 Blood Carboxyhemoglobin Arterial Blood Methemoglobin 0.1 Blood Gas A-a O2 Differential 310.2 H Oxyhemoglobin Percent 93.7 Blood Gas Temperature 37.0 Blood Gas Actual 17 Respiration Rate Blood Gas Modality TRACH COLLAR FiO2 60.0 Blood Gas Critical Value JOAO SOTO Read Back Blood Gas Notified Whom MA Blood Gas Notified Time 12/15/2018 11:15:58 PM Vancomycin Level Trough 34.6 *H White Blood Count 9.0 Red Blood Count 2.97 L Hemoglobin 8.4 L Hematocrit 27.0 L Mean Corpuscular Volume 90.9 Mean Corpuscular Hemoglobin 28.3 L Mean Corpuscular 31.1 L Hemoglobin Concent Red Cell Distribution Width 15.9 H Platelet Count 217 Mean Platelet Volume 10.1 Immature Granulocytes % 1.000 H Neutrophils % 82.1 H Lymphocytes % 11.5 L Monocytes % 4.7 Eosinophils % 0.4 Basophils % 0.3 Nucleated Red Blood Cells % 1.0 H Immature Granulocytes # 0.090 H Neutrophils # 7.4 Lymphocytes # 1.0 Monocytes # 0.4 Eosinophils # 0.0 Basophils # 0.0 Nucleated Red Blood Cells # 0.1 H Sodium Level 146 H Potassium Level 4.3 Chloride Level 119 H Carbon Dioxide Level 21 Anion Gap 6 Blood Urea Nitrogen 58 H Creatinine 0.67 Est Glomerular Filtrat > 60 Rate mL/min Glucose Level 115 Calcium Level 8.7 Phosphorus Level 2.9 Magnesium Level 1.7 Medications Medication Current Medications IV Flush (NS 3 ml) 3 ml PER PROTOCOL IV ; Start 12/11/18 at 19:00 Ondansetron HCl (Zofran Inj) 4 mg Q6H PRN IV NAUSEA/VOMITING; Start 12/11/18 at 19:00 Acetaminophen (Tylenol Tab) 650 mg Q6H PRN PO .PAIN 1-3 OR TEMP; Start 12/11/18 at 19:00 Acetaminophen/ Hydrocodone Bitart ([place] (5/325)) 1 tab Q6H PRN PO .MOD PAIN 4- 6; Start 12/11/18 at 19:00 Acetaminophen (Tylenol Tab) 650 mg Q6H PRN GTB MILD PAIN LEVEL 1-3; Start 12/11/18 at 19:00 Ascorbic Acid (Vitamin C) 500 mg DAILY GTB Last administered on 12/16/18 08:10; Admin Dose 500 MG; Start 12/12/18 at 09:00 Clonidine (Catapres) 0.1 mg Q6H PRN GTB FOR SBP>160; Start 12/11/18 at 19:00 Gabapentin (Neurontin) 300 mg QHS GTB Last administered on 12/15/18 21:29; Admin Dose 300 MG; Start 12/11/18 at 21:00 Levothyroxine Sodium (Synthroid) 75 mcg BEFORE BREAKFAST GTB Last administered on 12/16/18 07:06; Admin Dose 75 MCG; Start 12/12/18 at 07:00 Simethicone (Mylicon) 80 mg Q6H GTB Last administered on 12/16/18 12:12; Admin Dose 80 MG; Start 12/11/18 at 19:00 Albuterol/ Ipratropium (Duoneb) 3 ml Q4H RESP THERAPY PRN HHN SHORTNESS OF BREATH; Start 12/11/18 at 19:00 Piperacillin Sod/ Tazobactam Sod 100 ml @ 200 mls/hr Q6 IVPB Last administered on 12/16/18 12:11; Admin Dose 200 MLS/HR; Start 12/12/18 at 00:00 Norepinephrine 250 ml @ 1.875 mls/ hr TITRATE IV Last administered on 12/13/18 21:50; Admin Dose 3.75 MLS/HR; Start 12/12/18 at 05:00 IV Flush (NS 10 ml) 10 ml PRN PRN IV IV PROTOCOL; Start 12/12/18 at 17:00 Morphine Sulfate (morphine) 6 mg Q4H PRN GTB .SEVERE PAIN 7-10; Start 12/13/18 at 12:00 Dextrose/Sodium Chloride 1,000 ml @ 50 mls/hr Q20H IV Last administered on 12/16/18 02:22; Admin Dose 50 MLS/HR; Start 12/13/18 at 12:30 Mupirocin (Bactroban) 1 applic BID TOP Last administered on 12/16/18 08:10; Admin Dose 1 APPLIC; Start 12/13/18 at 21:00; Stop 12/20/18 at 09:01 Midodrine (Proamatine) 5 mg TID@0900,1300,1700 PO Last administered on 12/16/18at 12:12; Admin Dose 5 MG; Start 12/14/18 at 09:30 Vancomycin HCl (Vanco Iv Per Pharmacy) VANCOMYCIN PER PHARMACY PER PROTOCOL XX ; Start 12/14/18 at 11:30 Vancomycin HCl 250 ml @ 125 mls/hr Q12H IVPB Last administered on 12/16/18at 02:18; Admin Dose 125 MLS/HR; Start 12/15/18 at 02:00; Status Hold Fluconazole (Diflucan) 100 mg DAILY PO Last administered on 12/16/18at 08:10; Admin Dose 100 MG; Start 12/15/18 at 15:00 Heparin Sodium (Porcine) (Heparin (1000 Units/ml)) 6,900 unit PER PROTOCOL PRN IV aPTT<47 Last administered on 12/16/18at 09:45; Admin Dose 6,900 UNIT; Start 12/16/18 at 09:00 Heparin Sodium (Porcine) (Heparin (1000 Units/ml)) 3,500 unit PER PROTOCOL PRN IV aPTT<47-57; Start 12/16/18 at 09:00 Heparin Sodium (Porcine) 250 ml @ 15.545 mls/ hr PER PROTOCOL IV Last administered on 12/16/18at 09:44; Admin Dose 15.5 MLS/HR; Start 12/16/18 at 09:00 Miscellaneous Information (*Rx Drug Level Order Reminder*) VANCO RANDOM W/ AM LABS... 0500 ONCE XX ; Start 12/17/18 at 05:00; Stop 12/17/18 at 05:01 RAMAN NICOLAS NP Dec 16, 2018 14:52
[2018-12-16] MEDS: GABAPENTIN 300 MG CAP GTB SCH (20:18)
[2018-12-17] VITALS (94 sets, daily range): BP systolic 72–161; BP diastolic 46–136; PULSE 58–86; RESP 12–27
[2018-12-17] MEDS: NORepinephrine 8MG/250 ML (PMX 250 ML IV SCH (04:58)
[2018-12-17] MEDS: PIPER-TAZO 3.375 GM IV (PMX) 100 ML IVPB SCH ×3 (05:06→17:59)
[2018-12-17] MEDS: LEVOTHYROXINE 75 MCG TAB GTB SCH (06:37)
[2018-12-17] MEDS ORDERED: ATROPINE 1 MG/10 ML SYRINGE ONE (07:00)
--- NOTE | 2018-12-17 08:25 | PN ---
Date/Time of Note Date/Time of Note DATE: 12/17/18 TIME: 08:18 Assessment/Plan VTE Prophylaxis Risk score (from [facility])>0 risk: 9 SCD applied (from [facility]): No SCD contraindicated: DVT (Bilateral lower extremity DVT) Pharmacological prophylaxis: heparin Lines/Catheters IV Catheter Type (from [facility]): PICC Line Central line still needed: Yes Urinary Cath still in place: Yes Reason Cath still needed: skin wounds contaminated by urine Assessment/Plan Problems: (1) Healthcare-associated pneumonia Status: Acute Comment: Patient is responding to treatment clinically. Her overall prognosis however has limitations. Please see the notes from palliative care. I will continue with treatment aggressively (2) UTI (urinary tract infection) Status: Acute Comment: Successfully treated Qualifiers: Urinary tract infection type: site unspecified Hematuria presence: without hematuria Qualified Codes: N39.0 - Urinary tract infection, site not specified (3) Altered level of consciousness Status: Chronic Comment: She is a chronic encephalopathy which has not significantly improved and does not have a high likelihood of major improvement. (4) Lower leg DVT (deep venous thromboembolism), chronic Status: Chronic Comment: Noted. Qualifiers: Laterality: bilateral Qualified Codes: I82.5Z3 - Chronic embolism and thrombosis of unspecified deep veins of distal lower extremity, bilateral (5) Prerenal acute renal failure Status: Acute Comment: The creatinine is improved she is still quite prerenal and still on pressors. She needs a fluid bolus to help with her volume status as well as more free water. In addition she is hypomagnesemic and that will be replaced (6) Cervical disc disease with myelopathy Status: Chronic Comment: Noted. (7) Functional quadriplegia Status: Chronic Comment: Noted. (8) Essential hypertension Status: Chronic Comment: Recently on pressors (9) MRSA (methicillin resistant staph aureus) culture positive Status: Acute Comment: Noted. (10) Acquired hypothyroidism Status: Chronic Comment: Stable on replacement therapy (11) Anemia Status: Acute Comment: Noted. Qualifiers: Anemia type: unspecified type Qualified Codes: D64.9 - Anemia, unspecified Result Diagram: 12/17/18 0455 12/17/18 0455 Results 24hrs Laboratory Tests Test 12/16/18 14:38 12/16/18 18:20 12/16/18 20:09 12/17/18 03:37 Activated > 180.0 *H 169.8 *H 83.7 *H > 180.0 *H Partial Thromboplast Time Urine Color YELLOW Urine Clarity CLOUDY A Urine pH 6.0 Urine Specific [place] 1.006 Urine Ketones NEGATIVE Urine Nitrite NEGATIVE Urine Bilirubin NEGATIVE Urine Urobilinogen NEGATIVE Urine Leukocyte Esterase 3+ H Urine Microscopic RBC 5 Urine Microscopic WBC 31 H Urine Squamous MODERATE Epithelial Cells Urine Amorphous Crystals FEW A Urine Hemoglobin 1+ H Urine Random Creatinine < 12.40 L Urine Random Sodium < 13 L Urine Glucose NEGATIVE Urine Total Protein 77.0 H Test 12/17/18 04:55 White Blood Count 8.5 Red Blood Count 3.05 L Hemoglobin 8.4 L Hematocrit 27.3 L Mean Corpuscular Volume 89.5 Mean Corpuscular 27.5 L Hemoglobin Mean Corpuscular 30.8 L Hemoglobin Concent Red Cell Distribution 15.9 H Width Platelet Count 235 Mean Platelet Volume 10.2 Immature Granulocytes % 1.800 H Neutrophils % 73.0 Lymphocytes % 17.3 Monocytes % 6.9 Eosinophils % 0.8 Basophils % 0.2 Nucleated Red Blood 2.0 H Cells % Immature Granulocytes # 0.150 H Neutrophils # 6.2 Lymphocytes # 1.5 Monocytes # 0.6 Eosinophils # 0.1 Basophils # 0.0 Nucleated Red Blood 0.2 H Cells # Sodium Level 145 H Potassium Level 4.5 Chloride Level 119 H Carbon Dioxide Level 21 Anion Gap 5 Blood Urea Nitrogen 48 H Creatinine 0.64 Est Glomerular Filtrat > 60 Rate mL/min Glucose Level 114 Calcium Level 8.7 Phosphorus Level 2.4 L Magnesium Level 1.5 L Subjective 24 Hr Interval Summary Free Text/Dictation Patient is nonverbal. She does open her eyes but does not respond to question Subjective hx not possible: pt non-verbal Exam/Review of Systems Exam Vitals Vital Signs Date Temp Pulse Resp B/P (MAP) Pulse Ox O2 O2 Flow FiO2 Time Delivery Rate 12/17/18 98 5.0 28 07:45 12/17/18 79 24 Aerosol 07:44 T Tube 12/17/18 91/64 (73) 06:15 12/17/18 98.2 04:00 Intake and Output 12/16/18 12/16/18 12/17/18 1515:00 23:00 07:00 IntakeIntake Total 1367.50 ml 1225.17 ml 1387.564 ml OutputOutput Total 895 ml 585 ml 590 ml BalanceBalance 472.50 ml 640.17 ml 797.564 ml Exam Opens eyes and tracks but does not indicate any type of purposeful reaction to questions including instructions to blink twice Constitutional: non-verbal Psych: other (Chronic encephalopathy) ENMT: other (Morgan ostomy tube in place) Neck: other (Ileostomy tube in place) Respiratory: clear to auscultation, normal air movement Cardiovascular: regular rate and rhythm, nl pulses Gastrointestinal: soft, nl liver, spleen, non-tender Results Results 24hrs Laboratory Tests Test 12/16/18 14:38 12/16/18 18:20 12/16/18 20:09 12/17/18 03:37 Activated > 180.0 *H 169.8 *H 83.7 *H > 180.0 *H Partial Thromboplast Time Urine Color YELLOW Urine Clarity CLOUDY A Urine pH 6.0 Urine Specific [place] 1.006 Urine Ketones NEGATIVE Urine Nitrite NEGATIVE Urine Bilirubin NEGATIVE Urine Urobilinogen NEGATIVE Urine Leukocyte Esterase 3+ H Urine Microscopic RBC 5 Urine Microscopic WBC 31 H Urine Squamous MODERATE Epithelial Cells Urine Amorphous Crystals FEW A Urine Hemoglobin 1+ H Urine Random Creatinine < 12.40 L Urine Random Sodium < 13 L Urine Glucose NEGATIVE Urine Total Protein 77.0 H Test 12/17/18 04:55 White Blood Count 8.5 Red Blood Count 3.05 L Hemoglobin 8.4 L Hematocrit 27.3 L Mean Corpuscular Volume 89.5 Mean Corpuscular 27.5 L Hemoglobin Mean Corpuscular 30.8 L Hemoglobin Concent Red Cell Distribution 15.9 H Width Platelet Count 235 Mean Platelet Volume 10.2 Immature Granulocytes % 1.800 H Neutrophils % 73.0 Lymphocytes % 17.3 Monocytes % 6.9 Eosinophils % 0.8 Basophils % 0.2 Nucleated Red Blood 2.0 H Cells % Immature Granulocytes # 0.150 H Neutrophils # 6.2 Lymphocytes # 1.5 Monocytes # 0.6 Eosinophils # 0.1 Basophils # 0.0 Nucleated Red Blood 0.2 H Cells # Sodium Level 145 H Potassium Level 4.5 Chloride Level 119 H Carbon Dioxide Level 21 Anion Gap 5 Blood Urea Nitrogen 48 H Creatinine 0.64 Est Glomerular Filtrat > 60 Rate mL/min Glucose Level 114 Calcium Level 8.7 Phosphorus Level 2.4 L Magnesium Level 1.5 L Medications Medication Current Medications IV Flush (NS 3 ml) 3 ml PER PROTOCOL IV ; Start 12/11/18 at 19:00 Ondansetron HCl (Zofran Inj) 4 mg Q6H PRN IV NAUSEA/VOMITING; Start 12/11/18 at 19:00 Acetaminophen (Tylenol Tab) 650 mg Q6H PRN PO .PAIN 1-3 OR TEMP; Start 12/11/18 at 19:00 Acetaminophen/ Hydrocodone Bitart ([place] (5/325)) 1 tab Q6H PRN PO .MOD PAIN 4- 6; Start 12/11/18 at 19:00 Acetaminophen (Tylenol Tab) 650 mg Q6H PRN GTB MILD PAIN LEVEL 1-3; Start 12/11/18 at 19:00 Ascorbic Acid (Vitamin C) 500 mg DAILY GTB Last administered on 12/16/18at 08:10; Admin Dose 500 MG; Start 12/12/18 at 09:00 Clonidine (Catapres) 0.1 mg Q6H PRN GTB FOR SBP>160; Start 12/11/18 at 19:00 Gabapentin (Neurontin) 300 mg QHS GTB Last administered on 12/16/18at 20:18; Admin Dose 300 MG; Start 12/11/18 at 21:00 Levothyroxine Sodium (Synthroid) 75 mcg BEFORE BREAKFAST GTB Last administered on 12/17/18 06:37; Admin Dose 75 MCG; Start 12/12/18 at 07:00 Simethicone (Mylicon) 80 mg Q6H GTB Last administered on 12/17/18 06:37; Admin Dose 80 MG; Start 12/11/18 at 19:00 Albuterol/ Ipratropium (Duoneb) 3 ml Q4H RESP THERAPY PRN HHN SHORTNESS OF YASEMIN ATH; Start 12/11/18 at 19:00 Piperacillin Sod/ Tazobactam Sod 100 ml @ 200 mls/hr Q6 IVPB Last administered on 12/17/18 05:06; Admin Dose 200 MLS/HR; Start 12/12/18 at 00:00 Norepinephrine 250 ml @ 1.875 mls/ hr TITRATE IV Last administered on 12/17/18 04:58; Admin Dose 3.75 MLS/HR; Start 12/12/18 at 05:00 IV Flush (NS 10 ml) 10 ml PRN PRN IV IV PROTOCOL; Start 12/12/18 at 17:00 Morphine Sulfate (morphine) 6 mg Q4H PRN GTB .SEVERE PAIN 7-10; Start 12/13/18 at 12:00 Dextrose/Sodium Chloride 1,000 ml @ 50 mls/hr Q20H IV Last administered on 12/16/18 22:58; Admin Dose 50 MLS/HR; Start 12/13/18 at 12:30 Mupirocin (Bactroban) 1 applic BID TOP Last administered on 12/16/18 20:18; Admin Dose 1 APPLIC; Start 12/13/18 at 21:00; Stop 12/20/18 at 09:01 Midodrine (Proamatine) 5 mg TID@0900,1300,1700 PO Last administered on 12/16/18 17:22; Admin Dose 5 MG; Start 12/14/18 at 09:30 Vancomycin HCl (Vanco Iv Per Pharmacy) VANCOMYCIN PER PHARMACY PER PROTOCOL XX ; Start 12/14/18 at 11:30 Vancomycin HCl 250 ml @ 125 mls/hr Q12H IVPB Last administered on 12/16/18 02:18; Admin Dose 125 MLS/HR; Start 12/15/18 at 02:00; Status Hold Fluconazole (Diflucan) 100 mg DAILY PO Last administered on 12/16/18 08:10; Admin Dose 100 MG; Start 12/15/18 at 15:00 Heparin Sodium (Porcine) (Heparin (1000 Units/ml)) 6,900 unit PER PROTOCOL PRN IV aPTT<47 Last administered on 12/16/18 09:45; Admin Dose 6,900 UNIT; Start 12/16/18 at 09:00 Heparin Sodium (Porcine) (Heparin (1000 Units/ml)) 3,500 unit PER PROTOCOL PRN IV aPTT<47-57; Start 12/16/18 at 09:00 Heparin Sodium (Porcine) 250 ml @ 15.545 mls/ hr PER PROTOCOL IV Last administered on 12/16/18 09:44; Admin Dose 15.5 MLS/HR; Start 12/16/18 at 09:00 TOMI GIBBS MD Dec 17, 2018 08:25
[2018-12-17] MEDS ORDERED: LACTATED RINGER'S 500 ML IV ONE (08:30)
[2018-12-17] MEDS ORDERED: DEXTROSE 5% WATER 500 ML BAG IV ONE (08:30)
[2018-12-17] MEDS: FLUCONAZOLE 100 MG TAB PO SCH (08:58)
[2018-12-17] MEDS: ASCORBIC ACID 500 MG TAB GTB SCH (08:58)
[2018-12-17] MEDS: MIDODRINE 5 MG TAB PO SCH ×3 (08:58→17:59)
[2018-12-17] MEDS: MUPIROCIN 2% 22 GM OINT TOP SCH ×2 (08:58→21:02)
[2018-12-17] MEDS ORDERED: MAGNESIUM SULFATE 4 GM/100 ML 100 ML IVPB ONE (09:30)
--- NOTE | 2018-12-17 11:26 | CONS ---
Assessment/Plan Assessment/Plan Hospital Course (Demo Recall) 1. Nonoliguric acute kidney injury with unknown baseline creatinine. Etiology of acute kidney injury is secondary to hemodynamics, sepsis. The patient's renal function has been improving with supportive care. We will continue current treatment plan. Continue pressor support, maintain MAP of 65. Continue IV hydration. Continue antibiotic therapy. 2. 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 The patient, however is in acute kidney injury and appears to be recovering. The plan is to repeat a urine protein creatinine ratio, albumin/creatinine ratio. Defer MICHAELA inhibitor or ARB at this time until renal function and hemodynamics are stabilized. 3. Hypernatremia. Continue free water flushes. Continue hypertonic fluid. 4. Metabolic acidosis secondary to acute kidney injury, improving. Continue to monitor. 5. Anemia. Monitor hemoglobin and hematocrit levels. 6. Septic shock secondary to urinary tract infection and pneumonia. Continue current medical management. Continue IV fluids, IV antibiotics. 7. Chronic respiratory failure, status post trach. The patient is currently stable on trach mask. 8. Acute encephalopathy. Etiology is toxic metabolic. 9. Hypothyroidism. Continue Synthroid. 10. Bilateral lower extremity deep venous thrombosis. Continue medical management. 11. Quadriplegia secondary to C spine injury. Consultation Date/Type/Reason Admit Date/Time Dec 11, 2018 at 20:30 Initial Consult Date 12/13/18 Requesting Provider: JOSE J DEMPSEY Date/Time of Note DATE: 12/17/18 TIME: 11:25 24 HR Interval Summary Free Text/Dictation adequate urine output BP stable no emesis d/w rn Gen: nad CV: rrr Pulm: coarse bs Abd: soft, nd, nt +bs ext: no edema Exam/Review of Systems Exam Vitals Vital Signs Date Temp Pulse Resp B/P (MAP) Pulse Ox O2 O2 Flow FiO2 Time Delivery Rate 12/17/18 85 27 114/74 96 09:30 (87) 12/17/18 Trach 09:00 Collar 12/17/18 98.1 08:00 12/17/18 5.0 28 07:45 Intake and Output 12/16/18 12/16/18 12/17/18 1515:00 23:00 07:00 IntakeIntake Total 1367.50 ml 1225.17 ml 1439.439 ml OutputOutput Total 895 ml 585 ml 590 ml BalanceBalance 472.50 ml 640.17 ml 849.439 ml Results Result Diagram: 12/17/18 0455 12/17/18 0455 Results 24hrs Laboratory Tests Test 12/16/18 14:38 12/16/18 18:20 12/16/18 20:09 12/17/18 03:37 Activated > 180.0 *H 169.8 *H 83.7 *H > 180.0 *H Partial Thromboplast Time Urine Color YELLOW Urine Clarity CLOUDY A Urine pH 6.0 Urine Specific [place] 1.006 Urine Ketones NEGATIVE Urine Nitrite NEGATIVE Urine Bilirubin NEGATIVE Urine Urobilinogen NEGATIVE Urine Leukocyte Esterase 3+ H Urine Microscopic RBC 5 Urine Microscopic WBC 31 H Urine Squamous MODERATE Epithelial Cells Urine Amorphous Crystals FEW A Urine Hemoglobin 1+ H Urine Random Creatinine < 12.40 L Urine Random Sodium < 13 L Urine Glucose NEGATIVE Urine Total Protein 77.0 H Test 12/17/18 04:55 12/17/18 08:54 White Blood Count 8.5 Red Blood Count 3.05 L Hemoglobin 8.4 L Hematocrit 27.3 L Mean Corpuscular Volume 89.5 Mean Corpuscular 27.5 L Hemoglobin Mean Corpuscular 30.8 L Hemoglobin Concent Red Cell Distribution 15.9 H Width Platelet Count 235 Mean Platelet Volume 10.2 Immature Granulocytes % 1.800 H Neutrophils % 73.0 Lymphocytes % 17.3 Monocytes % 6.9 Eosinophils % 0.8 Basophils % 0.2 Nucleated Red Blood 2.0 H Cells % Immature Granulocytes # 0.150 H Neutrophils # 6.2 Lymphocytes # 1.5 Monocytes # 0.6 Eosinophils # 0.1 Basophils # 0.0 Nucleated Red Blood 0.2 H Cells # Sodium Level 145 H Potassium Level 4.5 Chloride Level 119 H Carbon Dioxide Level 21 Anion Gap 5 Blood Urea Nitrogen 48 H Creatinine 0.64 Est Glomerular Filtrat > 60 Rate mL/min Glucose Level 114 Calcium Level 8.7 Phosphorus Level 2.4 L Magnesium Level 1.5 L Random Vancomycin Level 28.5 Activated 114.2 *H Partial Thromboplast Time Medications Medication Current Medications IV Flush (NS 3 ml) 3 ml PER PROTOCOL IV ; Start 12/11/18 at 19:00 Ondansetron HCl (Zofran Inj) 4 mg Q6H PRN IV NAUSEA/VOMITING; Start 12/11/18 at 19:00 Acetaminophen (Tylenol Tab) 650 mg Q6H PRN PO .PAIN 1-3 OR TEMP; Start 12/11/18 at 19:00 Acetaminophen/ Hydrocodone Bitart ([place] (5/325)) 1 tab Q6H PRN PO .MOD PAIN 4- 6; Start 12/11/18 at 19:00 Acetaminophen (Tylenol Tab) 650 mg Q6H PRN GTB MILD PAIN LEVEL 1-3; Start 12/11/18 at 19:00 Ascorbic Acid (Vitamin C) 500 mg DAILY GTB Last administered on 12/17/18at 08:58; Admin Dose 500 MG; Start 12/12/18 at 09:00 Clonidine (Catapres) 0.1 mg Q6H PRN GTB FOR SBP>160; Start 12/11/18 at 19:00 Gabapentin (Neurontin) 300 mg QHS GTB Last administered on 12/16/18at 20:18; Admin Dose 300 MG; Start 12/11/18 at 21:00 Levothyroxine Sodium (Synthroid) 75 mcg BEFORE BREAKFAST GTB Last administered on 12/17/18 06:37; Admin Dose 75 MCG; Start 12/12/18 at 07:00 Simethicone (Mylicon) 80 mg Q6H GTB Last administered on 12/17/18at 06:37; Admin Dose 80 MG; Start 12/11/18 at 19:00 Albuterol/ Ipratropium (Duoneb) 3 ml Q4H RESP THERAPY PRN HHN SHORTNESS OF DARI TH; Start 12/11/18 at 19:00 Piperacillin Sod/ Tazobactam Sod 100 ml @ 200 mls/hr Q6 IVPB Last administered on 12/17/18at 05:06; Admin Dose 200 MLS/HR; Start 12/12/18 at 00:00 Norepinephrine 250 ml @ 1.875 mls/ hr TITRATE IV Last administered on 12/17/18at 04:58; Admin Dose 3.75 MLS/HR; Start 12/12/18 at 05:00 IV Flush (NS 10 ml) 10 ml PRN PRN IV IV PROTOCOL; Start 12/12/18 at 17:00 Morphine Sulfate (morphine) 6 mg Q4H PRN GTB .SEVERE PAIN 7-10; Start 12/13/18 at 12:00 Dextrose/Sodium Chloride 1,000 ml @ 50 mls/hr Q20H IV Last administered on 12/16/18 22:58; Admin Dose 50 MLS/HR; Start 12/13/18 at 12:30 Mupirocin (Bactroban) 1 applic BID TOP Last administered on 12/17/18 08:58; Admin Dose 1 APPLIC; Start 12/13/18 at 21:00; Stop 12/20/18 at 09:01 Midodrine (Proamatine) 5 mg TID@0900,1300,1700 PO Last administered on 12/17/18 08:58; Admin Dose 5 MG; Start 12/14/18 at 09:30 Vancomycin HCl (Vanco Iv Per Pharmacy) VANCOMYCIN PER PHARMACY PER PROTOCOL XX ; Start 12/14/18 at 11:30 Vancomycin HCl 250 ml @ 125 mls/hr Q12H IVPB Last administered on 12/16/18 02:18; Admin Dose 125 MLS/HR; Start 12/15/18 at 02:00; Status Hold Fluconazole (Diflucan) 100 mg DAILY PO Last administered on 12/17/18 08:58; Admin Dose 100 MG; Start 12/15/18 at 15:00 Heparin Sodium (Porcine) (Heparin (1000 Units/ml)) 6,900 unit PER PROTOCOL PRN IV aPTT<47 Last administered on 12/16/18 09:45; Admin Dose 6,900 UNIT; Start 12/16/18 at 09:00 Heparin Sodium (Porcine) (Heparin (1000 Units/ml)) 3,500 unit PER PROTOCOL PRN IV aPTT<47-57; Start 12/16/18 at 09:00 Heparin Sodium (Porcine) 250 ml @ 15.545 mls/ hr PER PROTOCOL IV Last administered on 12/16/18 09:44; Admin Dose 15.5 MLS/HR; Start 12/16/18 at 09:00 Magnesium Sulfate 100 ml @ 25 mls/hr ONCE ONCE IVPB Last administered on 12/17/18 10:18; Admin Dose 25 MLS/HR; Start 12/17/18 at 09:30; Stop 12/17/18 at 13:29 NATALIYA TIDWELL MD Dec 17, 2018 11:26
--- NOTE | 2018-12-17 11:44 | CONS ---
Consult Date/Type/Reason Admit Date/Time Dec 11, 2018 at 20:30 Initial Consult Date 12/13/18 Type of Consultation: Pulm/CCM Requesting Provider: JOSE J DEMPSEY Date/Time of Note DATE: 12/17/18 TIME: 11:42 Subjective Remain on low-dose levophed. On trach collar. Objective Vitals Vital Signs Date Temp Pulse Resp B/P (MAP) Pulse Ox O2 O2 Flow FiO2 Time Delivery Rate 12/17/18 85 27 114/74 96 09:30 (87) 12/17/18 Trach 09:00 Collar 12/17/18 98.1 08:00 12/17/18 5.0 28 07:45 Intake and Output 12/16/18 12/16/18 12/17/18 1515:00 23:00 07:00 IntakeIntake Total 1367.50 ml 1225.17 ml 1439.439 ml OutputOutput Total 895 ml 585 ml 590 ml BalanceBalance 472.50 ml 640.17 ml 849.439 ml Exam HEENT: Neck supple; no JVD; no LAD; + trach CVS: RRR, S1 and S2 CHEST: Clear ABD: Soft, NT, + BS EXT: No c/c/e NEURO: Minimally responsive Results/Medications Result Diagram: 12/17/18 0455 12/17/18 0455 Results 24 hrs Laboratory Tests Test 12/16/18 14:38 12/16/18 18:20 12/16/18 20:09 12/17/18 03:37 Activated > 180.0 *H 169.8 *H 83.7 *H > 180.0 *H Partial Thromboplast Time Urine Color YELLOW Urine Clarity CLOUDY A Urine pH 6.0 Urine Specific [place] 1.006 Urine Ketones NEGATIVE Urine Nitrite NEGATIVE Urine Bilirubin NEGATIVE Urine Urobilinogen NEGATIVE Urine Leukocyte Esterase 3+ H Urine Microscopic RBC 5 Urine Microscopic WBC 31 H Urine Squamous MODERATE Epithelial Cells Urine Amorphous Crystals FEW A Urine Hemoglobin 1+ H Urine Random Creatinine < 12.40 L Urine Random Sodium < 13 L Urine Glucose NEGATIVE Urine Total Protein 77.0 H Test 12/17/18 04:55 12/17/18 08:54 White Blood Count 8.5 Red Blood Count 3.05 L Hemoglobin 8.4 L Hematocrit 27.3 L Mean Corpuscular Volume 89.5 Mean Corpuscular 27.5 L Hemoglobin Mean Corpuscular 30.8 L Hemoglobin Concent Red Cell Distribution 15.9 H Width Platelet Count 235 Mean Platelet Volume 10.2 Immature Granulocytes % 1.800 H Neutrophils % 73.0 Lymphocytes % 17.3 Monocytes % 6.9 Eosinophils % 0.8 Basophils % 0.2 Nucleated Red Blood 2.0 H Cells % Immature Granulocytes # 0.150 H Neutrophils # 6.2 Lymphocytes # 1.5 Monocytes # 0.6 Eosinophils # 0.1 Basophils # 0.0 Nucleated Red Blood 0.2 H Cells # Sodium Level 145 H Potassium Level 4.5 Chloride Level 119 H Carbon Dioxide Level 21 Anion Gap 5 Blood Urea Nitrogen 48 H Creatinine 0.64 Est Glomerular Filtrat > 60 Rate mL/min Glucose Level 114 Calcium Level 8.7 Phosphorus Level 2.4 L Magnesium Level 1.5 L Random Vancomycin Level 28.5 Activated 114.2 *H Partial Thromboplast Time Home Meds Reported Medications Vancomycin HCl in Dextrose 5 % (Vancomycin 1.5 Gram/250 ml-D5w) 1.5 Gm/250 Ml Plast..bag, 1.5 GM IV Q48H FOR 7 DAYS,END DATE 12/17/18 12/11/18 Tuberculin,Purif.prot.deriv. (Tubersol) 5 Tub Unit/0.1 Ml Vial, 5 TUB ID QHS, VIAL EVERY 365 DAY. 12/11/18 Tramadol Hcl* (Ultram*) 50 Mg Tablet, 50 MG GTB Q6H PRN for PAIN 4-10/10, TAB 12/11/18 Simethicone* (Mylicon*) 80 Mg Tab, 80 MG GTB Q6H, TAB 12/11/18 Protein Supplement (Promod) 946 Ml Liquid, 30 ML GTB TID 12/11/18 Multivitamin/Minerals* (Multivitamin w/Min* Liq) 9 Mg/15 Ml Liquid, 30 ML GTB DAILY, ML 12/11/18 Mirtazapine* (Mirtazapine*) 7.5 Mg Tablet, 7.5 MG GTB HS, TAB 12/11/18 Metformin Hcl* (Metformin Hcl*) 500 Mg Tablet, 500 MG GTB WITH BREAKFAST DINNE, #60 TAB 12/11/18 Levothyroxine Sodium* (Levothyroxine Sodium*) 75 Mcg Tablet, 75 MCG GTB BEFORE BREAKFAST, #30 TAB 12/11/18 Gabapentin* (Gabapentin*) 300 Mg Capsule, 300 MG GTB QHS, #60 CAP 12/11/18 Ipratropium-Albuterol (Ipratropium-Albuterol) 0.5-3 Mg/3 Ml Ampul.neb, 3 ML INHALATION Q6 PRN for NEEDED, #30 VIAL 12/11/18 Clonidine Hcl* (Clonidine Hcl*) 0.1 Mg Tab, 0.1 MG GTB Q6H PRN for FOR SBP>160, TAB 12/11/18 Cefepime HCl (Cefepime HCl) 2 Gm Vial, 2 GM IV* BID, VIAL FOR 7 DAYS, END DATE 12/14/18 12/11/18 Ascorbic Acid (Vitamin C) 500 Mg Tab, 500 MG GTB DAILY, TAB 12/11/18 Acetaminophen* (Acetaminophen*) 325 Mg Tablet, 650 MG GTB Q6H PRN for MILD PAIN LEVEL 1-3, #30 TAB AND FEVER>101F 12/11/18 Medications Current Medications IV Flush (NS 3 ml) 3 ml PER PROTOCOL IV ; Start 12/11/18 at 19:00 Ondansetron HCl (Zofran Inj) 4 mg Q6H PRN IV NAUSEA/VOMITING; Start 12/11/18 at 19:00 Acetaminophen (Tylenol Tab) 650 mg Q6H PRN PO .PAIN 1-3 OR TEMP; Start 12/11/18 at 19:00 Acetaminophen/ Hydrocodone Bitart ([place] (5/325)) 1 tab Q6H PRN PO .MOD PAIN 4- 6; Start 12/11/18 at 19:00 Acetaminophen (Tylenol Tab) 650 mg Q6H PRN GTB MILD PAIN LEVEL 1-3; Start 12/11/18 at 19:00 Ascorbic Acid (Vitamin C) 500 mg DAILY GTB Last administered on 12/17/18at 08:58; Admin Dose 500 MG; Start 12/12/18 at 09:00 Clonidine (Catapres) 0.1 mg Q6H PRN GTB FOR SBP>160; Start 12/11/18 at 19:00 Gabapentin (Neurontin) 300 mg QHS GTB Last administered on 12/16/18at 20:18; Admin Dose 300 MG; Start 12/11/18 at 21:00 Levothyroxine Sodium (Synthroid) 75 mcg BEFORE BREAKFAST GTB Last administered on 12/17/18 06:37; Admin Dose 75 MCG; Start 12/12/18 at 07:00 Simethicone (Mylicon) 80 mg Q6H GTB Last administered on 12/17/18 06:37; Admin Dose 80 MG; Start 12/11/18 at 19:00 Albuterol/ Ipratropium (Duoneb) 3 ml Q4H RESP THERAPY PRN HHN SHORTNESS OF BREATH; Start 12/11/18 at 19:00 Piperacillin Sod/ Tazobactam Sod 100 ml @ 200 mls/hr Q6 IVPB Last administered on 12/17/18 05:06; Admin Dose 200 MLS/HR; Start 12/12/18 at 00:00 Norepinephrine 250 ml @ 1.875 mls/ hr TITRATE IV Last administered on 12/17/18 04:58; Admin Dose 3.75 MLS/HR; Start 12/12/18 at 05:00 IV Flush (NS 10 ml) 10 ml PRN PRN IV IV PROTOCOL; Start 12/12/18 at 17:00 Morphine Sulfate (morphine) 6 mg Q4H PRN GTB .SEVERE PAIN 7-10; Start 12/13/18 at 12:00 Dextrose/Sodium Chloride 1,000 ml @ 50 mls/hr Q20H IV Last administered on 12/16/18 22:58; Admin Dose 50 MLS/HR; Start 12/13/18 at 12:30 Mupirocin (Bactroban) 1 applic BID TOP Last administered on 12/17/18 08:58; Admin Dose 1 APPLIC; Start 12/13/18 at 21:00; Stop 12/20/18 at 09:01 Midodrine (Proamatine) 5 mg TID@0900,1300,1700 PO Last administered on 12/17/18 08:58; Admin Dose 5 MG; Start 12/14/18 at 09:30 Vancomycin HCl (Vanco Iv Per Pharmacy) VANCOMYCIN PER PHARMACY PER PROTOCOL XX ; Start 12/14/18 at 11:30 Vancomycin HCl 250 ml @ 125 mls/hr Q12H IVPB Last administered on 12/16/18at 02:18; Admin Dose 125 MLS/HR; Start 12/15/18 at 02:00; Status Hold Fluconazole (Diflucan) 100 mg DAILY PO Last administered on 12/17/18at 08:58; Admin Dose 100 MG; Start 12/15/18 at 15:00 Heparin Sodium (Porcine) (Heparin (1000 Units/ml)) 6,900 unit PER PROTOCOL PRN IV aPTT<47 Last administered on 12/16/18at 09:45; Admin Dose 6,900 UNIT; Start 12/16/18 at 09:00 Heparin Sodium (Porcine) (Heparin (1000 Units/ml)) 3,500 unit PER PROTOCOL PRN IV aPTT<47-57; Start 12/16/18 at 09:00 Heparin Sodium (Porcine) 250 ml @ 15.545 mls/ hr PER PROTOCOL IV Last administered on 12/16/18at 09:44; Admin Dose 15.5 MLS/HR; Start 12/16/18 at 09:00 Magnesium Sulfate 100 ml @ 25 mls/hr ONCE ONCE IVPB Last administered on 12/17/18at 10:18; Admin Dose 25 MLS/HR; Start 12/17/18 at 09:30; Stop 12/17/18 at 13:29 Assessment/Plan Assessment/Plan (Daily) IMP: 1. Chronic respiratory failure with tracheostomy 2. Septic shock secondary to UTI 3. History of upper extremity deep vein thrombosis RECS: 1. Titrate levophed gtt to MAP > 65 mm Hg 2. Continue tube feeding if tolerated 3. Follow UO; lactate clearance 4. ABG Critical care time 40 minutes MARCEL COVINGTON MD Dec 17, 2018 11:44
[2018-12-17] MEDS: HEPARIN 25000 UNITS/250 ML 250 ML IV SCH (12:18)
--- NOTE | 2018-12-17 15:32 | CONS ---
Assessment/Plan Assessment/Plan Hospital Course (Demo Recall) No acute events patient remains on low-dose levo fed and heparin drips, no fevers WBC 8.5 H&H 8.5 and 27.8 platelets 235 neutrophils 73 BUN 48 creatinine 0.64 Microbiology: Blood cultures remain negative, MRSA swab positive sputum culture neg urine culture grew Shannon albicans Antimicrobials: Vancomycin, Zosyn Diflucan Indwelling: Trach PEG [place], PICC line Physical examination: Chronically ill-appearing elderly woman who is awake in no distress. Head atraumatic normocephalic sclera nonicteric neck is supple tracheostomy present Passy-Matt valve present chest rise symmetrical breath sounds diminished to bases with scattered rhonchi. Heart: S1-S2. Abdomen soft bowel sounds present. Extremities with dependent edema. Assessment: 1. Sepsis 2. Healthcare associated pneumonia 3. Urinary tract infection 4. MRSA nares colonization 5. Chronic respiratory failure and dysphagia 6. Bilateral lower extremities DVT Plan: Remains unchanged, continue antibiotics, family to decide regarding plan of care Consultation Date/Type/Reason Admit Date/Time Dec 11, 2018 at 20:30 Initial Consult Date 12/13/18 Type of Consult id Requesting Provider: JOSE J DEMPSEY Date/Time of Note DATE: 12/17/18 TIME: 15:30 Exam/Review of Systems Exam Vitals Vital Signs Date Temp Pulse Resp B/P (MAP) Pulse Ox O2 O2 Flow FiO2 Time Delivery Rate 12/17/18 72 21 104/65 98 13:15 (78) 12/17/18 Trach 13:00 Collar 12/17/18 97.6 12:00 12/17/18 5.0 08:00 12/17/18 28 07:45 Intake and Output 12/16/18 12/16/18 12/17/18 1515:00 23:00 07:00 IntakeIntake Total 1367.50 ml 1225.17 ml 1484.439 ml OutputOutput Total 895 ml 585 ml 665 ml BalanceBalance 472.50 ml 640.17 ml 819.439 ml Results Result Diagram: 12/17/18 0455 12/17/18 0455 Results 24hrs Laboratory Tests Test 12/16/18 18:20 12/16/18 20:09 12/17/18 03:37 12/17/18 04:55 Activated 169.8 *H 83.7 *H > 180.0 *H Partial Thromboplast Time Urine Color YELLOW Urine Clarity CLOUDY A Urine pH 6.0 Urine Specific [place] 1.006 Urine Ketones NEGATIVE Urine Nitrite NEGATIVE Urine Bilirubin NEGATIVE Urine Urobilinogen NEGATIVE Urine Leukocyte Esterase 3+ H Urine Microscopic RBC 5 Urine Microscopic WBC 31 H Urine Squamous MODERATE Epithelial Cells Urine Amorphous Crystals FEW A Urine Hemoglobin 1+ H Urine Random Creatinine < 12.40 L Urine Random Sodium < 13 L Urine Glucose NEGATIVE Urine Total Protein 77.0 H White Blood Count 8.5 Red Blood Count 3.05 L Hemoglobin 8.4 L Hematocrit 27.3 L Mean Corpuscular Volume 89.5 Mean Corpuscular 27.5 L Hemoglobin Mean Corpuscular 30.8 L Hemoglobin Concent Red Cell Distribution 15.9 H Width Platelet Count 235 Mean Platelet Volume 10.2 Immature Granulocytes % 1.800 H Neutrophils % 73.0 Lymphocytes % 17.3 Monocytes % 6.9 Eosinophils % 0.8 Basophils % 0.2 Nucleated Red Blood 2.0 H Cells % Immature Granulocytes # 0.150 H Neutrophils # 6.2 Lymphocytes # 1.5 Monocytes # 0.6 Eosinophils # 0.1 Basophils # 0.0 Nucleated Red Blood 0.2 H Cells # Sodium Level 145 H Potassium Level 4.5 Chloride Level 119 H Carbon Dioxide Level 21 Anion Gap 5 Blood Urea Nitrogen 48 H Creatinine 0.64 Est Glomerular Filtrat > 60 Rate mL/min Glucose Level 114 Calcium Level 8.7 Phosphorus Level 2.4 L Magnesium Level 1.5 L Random Vancomycin Level 28.5 Test 12/17/18 08:54 12/17/18 10:55 Activated 114.2 *H 62.3 H Partial Thromboplast Time Medications Medication Current Medications IV Flush (NS 3 ml) 3 ml PER PROTOCOL IV ; Start 12/11/18 at 19:00 Ondansetron HCl (Zofran Inj) 4 mg Q6H PRN IV NAUSEA/VOMITING; Start 12/11/18 at 19:00 Acetaminophen (Tylenol Tab) 650 mg Q6H PRN PO .PAIN 1-3 OR TEMP; Start 12/11/18 at 19:00 Acetaminophen/ Hydrocodone Bitart ([place] (5/325)) 1 tab Q6H PRN PO .MOD PAIN 4- 6; Start 12/11/18 at 19:00 Acetaminophen (Tylenol Tab) 650 mg Q6H PRN GTB MILD PAIN LEVEL 1-3; Start 12/11/18 at 19:00 Ascorbic Acid (Vitamin C) 500 mg DAILY GTB Last administered on 12/17/18 08:58; Admin Dose 500 MG; Start 12/12/18 at 09:00 Clonidine (Catapres) 0.1 mg Q6H PRN GTB FOR SBP>160; Start 12/11/18 at 19:00 Gabapentin (Neurontin) 300 mg QHS GTB Last administered on 12/16/18 20:18; Admin Dose 300 MG; Start 12/11/18 at 21:00 Levothyroxine Sodium (Synthroid) 75 mcg BEFORE BREAKFAST GTB Last administered on 12/17/18 06:37; Admin Dose 75 MCG; Start 12/12/18 at 07:00 Simethicone (Mylicon) 80 mg Q6H GTB Last administered on 12/17/18 12:40; Admin Dose 80 MG; Start 12/11/18 at 19:00 Albuterol/ Ipratropium (Duoneb) 3 ml Q4H RESP THERAPY PRN HHN SHORTNESS OF BREATH; Start 12/11/18 at 19:00 Piperacillin Sod/ Tazobactam Sod 100 ml @ 200 mls/hr Q6 IVPB Last administered on 12/17/18 12:19; Admin Dose 200 MLS/HR; Start 12/12/18 at 00:00 Norepinephrine 250 ml @ 1.875 mls/ hr TITRATE IV Last administered on 12/17/18 04:58; Admin Dose 3.75 MLS/HR; Start 12/12/18 at 05:00 IV Flush (NS 10 ml) 10 ml PRN PRN IV IV PROTOCOL; Start 12/12/18 at 17:00 Morphine Sulfate (morphine) 6 mg Q4H PRN GTB .SEVERE PAIN 7-10; Start 12/13/18 at 12:00 Dextrose/Sodium Chloride 1,000 ml @ 50 mls/hr Q20H IV Last administered on 12/16/18 22:58; Admin Dose 50 MLS/HR; Start 12/13/18 at 12:30 Mupirocin (Bactroban) 1 applic BID TOP Last administered on 12/17/18 08:58; Admin Dose 1 APPLIC; Start 12/13/18 at 21:00; Stop 12/20/18 at 09:01 Midodrine (Proamatine) 5 mg TID@0900,1300,1700 PO Last administered on 12/17/18at 12:40; Admin Dose 5 MG; Start 12/14/18 at 09:30 Vancomycin HCl (Vanco Iv Per Pharmacy) VANCOMYCIN PER PHARMACY PER PROTOCOL XX ; Start 12/14/18 at 11:30 Vancomycin HCl 250 ml @ 125 mls/hr Q12H IVPB Last administered on 12/16/18at 02:18; Admin Dose 125 MLS/HR; Start 12/15/18 at 02:00; Status Hold Fluconazole (Diflucan) 100 mg DAILY PO Last administered on 12/17/18at 08:58; Admin Dose 100 MG; Start 12/15/18 at 15:00 Heparin Sodium (Porcine) (Heparin (1000 Units/ml)) 6,900 unit PER PROTOCOL PRN IV aPTT<47 Last administered on 12/16/18at 09:45; Admin Dose 6,900 UNIT; Start 12/16/18 at 09:00 Heparin Sodium (Porcine) (Heparin (1000 Units/ml)) 3,500 unit PER PROTOCOL PRN IV aPTT<47-57; Start 12/16/18 at 09:00 Heparin Sodium (Porcine) 250 ml @ 15.545 mls/ hr PER PROTOCOL IV Last administered on 12/17/18at 12:18; Admin Dose 10.363 MLS/HR; Start 12/16/18 at 09:00 RAMAN NICOLAS NP Dec 17, 2018 15:32
[2018-12-17] MEDS: GABAPENTIN 300 MG CAP GTB SCH (21:01)
[2018-12-17] MEDS: DEXTROSE 5%-0.225% NACL 1,000 ML IV SCH (21:02)
[2018-12-18] VITALS (96 sets, daily range): BP systolic 67–156; BP diastolic 48–101; PULSE 45–89; RESP 11–24
[2018-12-18] MEDS: PIPER-TAZO 3.375 GM IV (PMX) 100 ML IVPB SCH ×4 (00:01→17:26)
[2018-12-18] MEDS: LEVOTHYROXINE 75 MCG TAB GTB SCH (06:10)
[2018-12-18] MEDS: MIDODRINE 5 MG TAB PO SCH ×3 (08:13→17:27)
[2018-12-18] MEDS: ASCORBIC ACID 500 MG TAB GTB SCH (08:13)
[2018-12-18] MEDS: FLUCONAZOLE 100 MG TAB PO SCH (08:13)
[2018-12-18] MEDS: MUPIROCIN 2% 22 GM OINT TOP SCH ×2 (08:14→20:37)
--- NOTE | 2018-12-18 08:21 | PN ---
Date/Time of Note Date/Time of Note DATE: 12/18/18 TIME: 08:17 Assessment/Plan VTE [place]axis [place] [facility] [place]: 12 [place] [facility] [place] SCD contraindicated: DVT (Bilateral) Pharmacological prophylaxis: heparin Lines/Catheters IV [facility]ter Type ([facility] PICC Line Central line still needed: Yes Urinary Cath still in place: Yes Reason Cath still needed: skin wounds contaminated by urine Assessment/Plan Problems: (1) UTI (urinary tract infection) Status: Acute Comment: She is growing Shannon and is on treatment for this. This is doing well Qualifiers: Urinary tract infection type: site unspecified Hematuria presence: without hematuria Qualified Codes: N39.0 - Urinary tract infection, site not specified (2) Healthcare-associated pneumonia Status: Acute Comment: Patient is on antibiotic therapy in a senior appears to actually be doing a little bit better. Continue treatment with the infectious disease input. Please note again check a cortisol level which I doubt represents adrenal insufficiency given the overall presentation but just to be certain (3) Altered level of consciousness Status: Chronic Comment: Pleasant today (4) Acquired hypothyroidism Status: Chronic Comment: On replacement therapy (5) Diabetes mellitus type 2 in nonobese Status: Chronic Comment: Adequate control (6) Essential hypertension Status: Chronic Comment: Still on pressors for support. Please note this patient is still dehydrated. She is better than she was yesterday but she has not had a euvolemic state (7) Functional quadriplegia Status: Chronic Comment: Noted. (8) Lower leg DVT (deep venous thromboembolism), chronic Status: Chronic Comment: Noted. Qualifiers: Laterality: bilateral Qualified Codes: I82.5Z3 - Chronic embolism and thrombosis of unspecified deep veins of distal lower extremity, bilateral (9) Chronic respiratory failure Status: Chronic Comment: As per pulmonary Qualifiers: Respiratory failure complication: hypoxia Qualified Codes: J96.11 - Chronic respiratory failure with hypoxia (10) Tracheostomy present Status: Chronic Comment: Noted. (11) MRSA (methicillin resistant staph aureus) culture positive Status: Acute Comment: Infectious disease assist (12) S/P percutaneous endoscopic gastrostomy (PEG) tube placement Status: Chronic Comment: Being used for feeding and nutrition Result Diagram: 12/18/18 0459 12/18/18 0459 Results 24hrs Laboratory Tests Test 12/17/18 08:54 12/17/18 10:55 12/17/18 15:38 12/17/18 20:44 Activated 114.2 *H 62.3 H 146.0 *H 89.7 *H Partial Thrombopla st Time Test 12/18/18 02:51 12/18/18 04:58 12/18/18 04:59 12/18/18 05:00 Activated 101.5 *H Partial Thrombopla st Time Lactic Acid Level 1.0 White Blood Count 7.5 Red Blood Count 2.93 L Hemoglobin 8.2 L Hematocrit 26.0 L Mean Corpuscular 88.7 Volume Mean Corpuscular 28.0 L Hemoglobin Mean Corpuscular 31.5 L Hemoglobin Concent Red Cell 15.9 H Distribution Width Platelet Count 225 Mean Platelet 10.4 Volume Immature 1.900 H Granulocytes % Neutrophils % 63.5 Lymphocytes % 22.8 Monocytes % 10.4 Eosinophils % 1.1 Basophils % 0.3 Nucleated Red 1.2 H Blood Cells % Immature 0.140 H Granulocytes # Neutrophils # 4.8 Lymphocytes # 1.7 Monocytes # 0.8 Eosinophils # 0.1 Basophils # 0.0 Nucleated Red 0.1 H Blood Cells # Sodium Level 144 Potassium Level 4.2 Chloride Level 118 H Carbon Dioxide 22 Level Anion Gap 4 L Blood Urea 38 H Nitrogen Creatinine 0.57 Est Glomerular > 60 Filtrat Rate mL/min Glucose Level 114 Calcium Level 8.6 Magnesium Level 2.1 Blood Gas Specimen Blood arterial Source Arterial Blood 12/18/2018 4:30:02 Date Drawn AM Arterial Blood pH 7.364 (Temp corrected) Arterial Blood 40.7 pCO2 (Temp correct) Arterial Blood pO2 100.6 H (Temp corrected) Arterial Blood 22.7 HCO3 Arterial Blood -2.5 Base Excess Arterial Blood 97.9 Oxygen Saturation Robert Test ACCEPTAB Arterial Blood Gas Left Radial Puncture Site Arterial 0.5 Blood Carboxyhemog lobin Arterial Blood 0.1 Methemoglobin Blood Gas A-a O2 51.0 H Differential Oxyhemoglobin 97.3 Percent Blood Gas 37.0 Temperature Blood Gas Modality TRACH COLLAR FiO2 28.0 Blood Gas Notified MA Whom Blood Gas Notified 12/18/2018 5:03:52 Time AM Subjective 24 Hr Interval Summary Free Text/Dictation Patient is more awake and interactive today. Constitutional: no complaints Respiratory: no complaints Cardiovascular: no complaints Exam/Review of Systems Exam Vitals Vital Signs Date Temp Pulse Resp B/P (MAP) Pulse Ox O2 O2 Flow FiO2 Time Delivery Rate 12/18/18 57 12 112/68 97 Trach 07:00 (83) Collar 12/18/18 5.0 28 04:50 12/18/18 97.4 04:00 Intake and Output 12/17/18 12/17/18 12/18/18 1515:00 23:00 07:00 IntakeIntake Total 1307.789 ml 1282.286 ml 1226.1300 ml OutputOutput Total 675 ml 810 ml 790 ml BalanceBalance 632.789 ml 472.286 ml 436.1300 ml Exam Does not smiling and interactive mouth hello Constitutional: alert Neck: other (Tracheostomy present) Respiratory: clear to auscultation, normal air movement Cardiovascular: regular rate and rhythm, nl pulses Gastrointestinal: soft, nl liver, spleen, non-tender Results Results 24hrs Laboratory Tests Test 12/17/18 08:54 12/17/18 10:55 12/17/18 15:38 12/17/18 20:44 Activated 114.2 *H 62.3 H 146.0 *H 89.7 *H Partial Thrombopla st Time Test 12/18/18 02:51 12/18/18 04:58 12/18/18 04:59 12/18/18 05:00 Activated 101.5 *H Partial Thrombopla st Time Lactic Acid Level 1.0 White Blood Count 7.5 Red Blood Count 2.93 L Hemoglobin 8.2 L Hematocrit 26.0 L Mean Corpuscular 88.7 Volume Mean Corpuscular 28.0 L Hemoglobin Mean Corpuscular 31.5 L Hemoglobin Concent Red Cell 15.9 H Distribution Width Platelet Count 225 Mean Platelet 10.4 Volume Immature 1.900 H Granulocytes % Neutrophils % 63.5 Lymphocytes % 22.8 Monocytes % 10.4 Eosinophils % 1.1 Basophils % 0.3 Nucleated Red 1.2 H Blood Cells % Immature 0.140 H Granulocytes # Neutrophils # 4.8 Lymphocytes # 1.7 Monocytes # 0.8 Eosinophils # 0.1 Basophils # 0.0 Nucleated Red 0.1 H Blood Cells # Sodium Level 144 Potassium Level 4.2 Chloride Level 118 H Carbon Dioxide 22 Level Anion Gap 4 L Blood Urea 38 H Nitrogen Creatinine 0.57 Est Glomerular > 60 Filtrat Rate mL/min Glucose Level 114 Calcium Level 8.6 Magnesium Level 2.1 Blood Gas Specimen Blood arterial Source Arterial Blood 12/18/2018 4:30:02 Date Drawn AM Arterial Blood pH 7.364 (Temp corrected) Arterial Blood 40.7 pCO2 (Temp correct) Arterial Blood pO2 100.6 H (Temp corrected) Arterial Blood 22.7 HCO3 Arterial Blood -2.5 Base Excess Arterial Blood 97.9 Oxygen Saturation Robert Test ACCEPTAB Arterial Blood Gas Left Radial Puncture Site Arterial 0.5 Blood Carboxyhemog lobin Arterial Blood 0.1 Methemoglobin Blood Gas A-a O2 51.0 H Differential Oxyhemoglobin 97.3 Percent Blood Gas 37.0 Temperature Blood Gas Modality TRACH COLLAR FiO2 28.0 Blood Gas Notified MA Whom Blood Gas Notified 12/18/2018 5:03:52 Time AM Medications Medication Current Medications IV Flush (NS 3 ml) 3 ml PER PROTOCOL IV ; Start 12/11/18 at 19:00 Ondansetron HCl (Zofran Inj) 4 mg Q6H PRN IV NAUSEA/VOMITING; Start 12/11/18 at 19:00 Acetaminophen (Tylenol Tab) 650 mg Q6H PRN PO .PAIN 1-3 OR TEMP; Start 12/11/18 at 19:00 Acetaminophen/ Hydrocodone Bitart ([place] (5/325)) 1 tab Q6H PRN PO .MOD PAIN 4- 6; Start 12/11/18 at 19:00 Acetaminophen (Tylenol Tab) 650 mg Q6H PRN GTB MILD PAIN LEVEL 1-3; Start 12/11/18 at 19:00 Ascorbic Acid (Vitamin C) 500 mg DAILY GTB Last administered on 12/18/18at 08:13; Admin Dose 500 MG; Start 12/12/18 at 09:00 Clonidine (Catapres) 0.1 mg Q6H PRN GTB FOR SBP>160; Start 12/11/18 at 19:00 Gabapentin (Neurontin) 300 mg QHS GTB Last administered on 12/17/18at 21:01; Admin Dose 300 MG; Start 12/11/18 at 21:00 Levothyroxine Sodium (Synthroid) 75 mcg BEFORE BREAKFAST GTB Last administered on 12/18/18at 06:10; Admin Dose 75 MCG; Start 12/12/18 at 07:00 Simethicone (Mylicon) 80 mg Q6H GTB Last administered on 12/18/18at 06:10; Admin Dose 80 MG; Start 12/11/18 at 19:00 Albuterol/ Ipratropium (Duoneb) 3 ml Q4H RESP THERAPY PRN HHN SHORTNESS OF BREATH; Start 12/11/18 at 19:00 Piperacillin Sod/ Tazobactam Sod 100 ml @ 200 mls/hr Q6 IVPB Last administered on 12/18/18at 06:10; Admin Dose 200 MLS/HR; Start 12/12/18 at 00:00 Norepinephrine 250 ml @ 1.875 mls/ hr TITRATE IV Last administered on 12/17/18at 04:58; Admin Dose 3.75 MLS/HR; Start 12/12/18 at 05:00 IV Flush (NS 10 ml) 10 ml PRN PRN IV IV PROTOCOL; Start 12/12/18 at 17:00 Morphine Sulfate (morphine) 6 mg Q4H PRN GTB .SEVERE PAIN 7-10; Start 12/13/18 a t 12:00 Dextrose/Sodium Chloride 1,000 ml @ 50 mls/hr Q20H IV Last administered on 12/17/18 21:02; Admin Dose 50 MLS/HR; Start 12/13/18 at 12:30 Mupirocin (Bactroban) 1 applic BID TOP Last administered on 12/18/18at 08:14; Admin Dose 1 APPLIC; Start 12/13/18 at 21:00; Stop 12/20/18 at 09:01 Midodrine (Proamatine) 5 mg TID@0900,1300,1700 PO Last administered on 12/18/18at 08:13; Admin Dose 5 MG; Start 12/14/18 at 09:30 Vancomycin HCl (Vanco Iv Per Pharmacy) VANCOMYCIN PER PHARMACY PER PROTOCOL XX ; Start 12/14/18 at 11:30 Vancomycin HCl 250 ml @ 125 mls/hr Q12H IVPB Last administered on 12/16/18at 0 2:18; Admin Dose 125 MLS/HR; Start 12/15/18 at 02:00; Status Hold Fluconazole (Diflucan) 100 mg DAILY PO Last administered on 12/18/18at 08:13; Admin Dose 100 MG; Start 12/15/18 at 15:00 Heparin Sodium (Porcine) (Heparin (1000 Units/ml)) 6,900 unit PER PROTOCOL PRN IV aPTT<47 Last administered on 12/16/18at 09:45; Admin Dose 6,900 UNIT; Start 12/16/18 at 09:00 Heparin Sodium (Porcine) (Heparin (1000 Units/ml)) 3,500 unit PER PROTOCOL PRN IV aPTT<47-57; Start 12/16/18 at 09:00 Heparin Sodium (Porcine) 250 ml @ 15.545 mls/ hr PER PROTOCOL IV Last administered on 12/17/18at 12:18; Admin Dose 10.363 MLS/HR; Start 12/16/18 at 09:00 TOMI GIBBS MD Dec 18, 2018 08:21
[2018-12-18] MEDS ORDERED: LACTATED RINGER'S 500 ML IV ONE (08:30)
[2018-12-18] MEDS ORDERED: DEXTROSE 5% WATER 500 ML BAG IV ONE (08:30)
--- NOTE | 2018-12-18 11:02 | CONS ---
Consult Date/Type/Reason Admit Date/Time Dec 11, 2018 at 20:30 Initial Consult Date 12/13/18 Type of Consultation: Pulm/CCM Requesting Provider: JOSE J DEMPSEY Date/Time of Note DATE: 12/18/18 TIME: 11:00 Subjective No events. Remains on low dose levophed gtt. Objective Vitals Vital Signs Date Temp Pulse Resp B/P (MAP) Pulse Ox O2 O2 Flow FiO2 Time Delivery Rate 12/18/18 74 14 91/56 (68) 94 09:30 12/18/18 Trach 09:00 Collar 12/18/18 97.6 08:00 12/18/18 5.0 08:00 12/18/18 28 04:50 Intake and Output 12/17/18 12/17/18 12/18/18 1515:00 23:00 07:00 IntakeIntake Total 1307.789 ml 1282.286 ml 1430.0000 ml OutputOutput Total 675 ml 810 ml 890 ml BalanceBalance 632.789 ml 472.286 ml 540.0000 ml Exam HEENT: Neck supple; no JVD; no LAD; + trach CVS: RRR, S1 and S2 CHEST: Clear ABD: Soft, NT, + BS EXT: No c/c/e NEURO: Minimally responsive Results/Medications Result Diagram: 12/18/189 12/18/189 Results 24 hrs Laboratory Tests Test 12/17/18 15:38 12/17/18 20:44 12/18/18 02:51 12/18/18 04:57 Activated 146.0 *H 89.7 *H 101.5 *H Partial Thrombopla st Time Random Cortisol 11.1 Test 12/18/18 04:58 12/18/18 04:59 12/18/18 05:00 Lactic Acid Level 1.0 White Blood Count 7.5 Red Blood Count 2.93 L Hemoglobin 8.2 L Hematocrit 26.0 L Mean Corpuscular 88.7 Volume Mean Corpuscular 28.0 L Hemoglobin Mean Corpuscular 31.5 L Hemoglobin Concent Red Cell 15.9 H Distribution Width Platelet Count 225 Mean Platelet 10.4 Volume Immature 1.900 H Granulocytes % Neutrophils % 63.5 Lymphocytes % 22.8 Monocytes % 10.4 Eosinophils % 1.1 Basophils % 0.3 Nucleated Red 1.2 H Blood Cells % Immature 0.140 H Granulocytes # Neutrophils # 4.8 Lymphocytes # 1.7 Monocytes # 0.8 Eosinophils # 0.1 Basophils # 0.0 Nucleated Red 0.1 H Blood Cells # Sodium Level 144 Potassium Level 4.2 Chloride Level 118 H Carbon Dioxide 22 Level Anion Gap 4 L Blood Urea 38 H Nitrogen Creatinine 0.57 Est Glomerular > 60 Filtrat Rate mL/min Glucose Level 114 Calcium Level 8.6 Magnesium Level 2.1 Blood Gas Specimen Blood arterial Source Arterial Blood 12/18/2018 4:30:02 Date Drawn AM Arterial Blood pH 7.364 (Temp corrected) Arterial Blood 40.7 pCO2 (Temp correct) Arterial Blood pO2 100.6 H (Temp corrected) Arterial Blood 22.7 HCO3 Arterial Blood -2.5 Base Excess Arterial Blood 97.9 Oxygen Saturation Robert Test ACCEPTAB Arterial Blood Gas Left Radial Puncture Site Arterial 0.5 Blood Carboxyhemog lobin Arterial Blood 0.1 Methemoglobin Blood Gas A-a O2 51.0 H Differential Oxyhemoglobin 97.3 Percent Blood Gas 37.0 Temperature Blood Gas Modality TRACH COLLAR FiO2 28.0 Blood Gas Notified MA Whom Blood Gas Notified 12/18/2018 5:03:52 Time AM Home Meds Reported Medications Vancomycin HCl in Dextrose 5 % (Vancomycin 1.5 Gram/250 ml-D5w) 1.5 Gm/250 Ml Plast..bag, 1.5 GM IV Q48H FOR 7 DAYS,END DATE 12/17/18 12/11/18 Tuberculin,Purif.prot.deriv. (Tubersol) 5 Tub Unit/0.1 Ml Vial, 5 TUB ID QHS, VIAL EVERY 365 DAY. 12/11/18 Tramadol Hcl* (Ultram*) 50 Mg Tablet, 50 MG GTB Q6H PRN for PAIN 4-06/22, TAB 12/11/18 Simethicone* (Mylicon*) 80 Mg Tab, 80 MG GTB Q6H, TAB 12/11/18 Protein Supplement (Promod) 946 Ml Liquid, 30 ML GTB TID 12/11/18 Multivitamin/Minerals* (Multivitamin w/Min* Liq) 9 Mg/15 Ml Liquid, 30 ML GTB DAILY, ML 12/11/18 Mirtazapine* (Mirtazapine*) 7.5 Mg Tablet, 7.5 MG GTB HS, TAB 12/11/18 Metformin Hcl* (Metformin Hcl*) 500 Mg Tablet, 500 MG GTB WITH BREAKFAST DINNE, #60 TAB 12/11/18 Levothyroxine Sodium* (Levothyroxine Sodium*) 75 Mcg Tablet, 75 MCG GTB BEFORE BREAKFAST, #30 TAB 12/11/18 Gabapentin* (Gabapentin*) 300 Mg Capsule, 300 MG GTB QHS, #60 CAP 12/11/18 Ipratropium-Albuterol (Ipratropium-Albuterol) 0.5-3 Mg/3 Ml Ampul.neb, 3 ML INHALATION Q6 PRN for NEEDED, #30 VIAL 12/11/18 Clonidine Hcl* (Clonidine Hcl*) 0.1 Mg Tab, 0.1 MG GTB Q6H PRN for FOR SBP>160, TAB 12/11/18 Cefepime HCl (Cefepime HCl) 2 Gm Vial, 2 GM IV* BID, VIAL FOR 7 DAYS, END DATE 12/14/18 12/11/18 Ascorbic Acid (Vitamin C) 500 Mg Tab, 500 MG GTB DAILY, TAB 12/11/18 Acetaminophen* (Acetaminophen*) 325 Mg Tablet, 650 MG GTB Q6H PRN for MILD PAIN LEVEL 1-3, #30 TAB AND FEVER>101F 12/11/18 Medications Current Medications IV Flush (NS 3 ml) 3 ml PER PROTOCOL IV ; Start 12/11/18 at 19:00 Ondansetron HCl (Zofran Inj) 4 mg Q6H PRN IV NAUSEA/VOMITING; Start 12/11/18 at 19:00 Acetaminophen (Tylenol Tab) 650 mg Q6H PRN PO .PAIN 1-3 OR TEMP; Start 12/11/18 at 19:00 Acetaminophen/ Hydrocodone Bitart ([place] (5/325)) 1 tab Q6H PRN PO .MOD PAIN 4- 6; Start 12/11/18 at 19:00 Acetaminophen (Tylenol Tab) 650 mg Q6H PRN GTB MILD PAIN LEVEL 1-3; Start 12/11/18 at 19:00 Ascorbic Acid (Vitamin C) 500 mg DAILY GTB Last administered on 12/18/18at 08:13; Admin Dose 500 MG; Start 12/12/18 at 09:00 Clonidine (Catapres) 0.1 mg Q6H PRN GTB FOR SBP>160; Start 12/11/18 at 19:00 Gabapentin (Neurontin) 300 mg QHS GTB Last administered on 12/17/18 21:01; Admin Dose 300 MG; Start 12/11/18 at 21:00 Levothyroxine Sodium (Synthroid) 75 mcg BEFORE BREAKFAST GTB Last administered on 12/18/18 06:10; Admin Dose 75 MCG; Start 12/12/18 at 07:00 Simethicone (Mylicon) 80 mg Q6H GTB Last administered on 12/18/18 06:10; Admin Dose 80 MG; Start 12/11/18 at 19:00 Albuterol/ Ipratropium (Duoneb) 3 ml Q4H RESP THERAPY PRN HHN SHORTNESS OF BREATH; Start 12/11/18 at 19:00 Piperacillin Sod/ Tazobactam Sod 100 ml @ 200 mls/hr Q6 IVPB Last administered on 12/18/18 06:10; Admin Dose 200 MLS/HR; Start 12/12/18 at 00:00 Norepinephrine 250 ml @ 1.875 mls/ hr TITRATE IV Last administered on 12/17/18 04:58; Admin Dose 3.75 MLS/HR; Start 12/12/18 at 05:00 IV Flush (NS 10 ml) 10 ml PRN PRN IV IV PROTOCOL; Start 12/12/18 at 17:00 Morphine Sulfate (morphine) 6 mg Q4H PRN GTB .SEVERE PAIN 7-10; Start 12/13/18 at 12:00 Dextrose/Sodium Chloride 1,000 ml @ 50 mls/hr Q20H IV Last administered on 12/17/18 21:02; Admin Dose 50 MLS/HR; Start 12/13/18 at 12:30 Mupirocin (Bactroban) 1 applic BID TOP Last administered on 12/18/18 08:14; Admin Dose 1 APPLIC; Start 12/13/18 at 21:00; Stop 12/20/18 at 09:01 Midodrine (Proamatine) 5 mg TID@0900,1300,1700 PO Last administered on 12/18/18 08:13; Admin Dose 5 MG; Start 12/14/18 at 09:30 Vancomycin HCl (Vanco Iv Per Pharmacy) VANCOMYCIN PER PHARMACY PER PROTOCOL XX ; Start 12/14/18 at 11:30 Vancomycin HCl 250 ml @ 125 mls/hr Q12H IVPB Last administered on 12/16/18at 02:18; Admin Dose 125 MLS/HR; Start 12/15/18 at 02:00; Status Hold Fluconazole (Diflucan) 100 mg DAILY PO Last administered on 12/18/18at 08:13; Admin Dose 100 MG; Start 12/15/18 at 15:00 Heparin Sodium (Porcine) (Heparin (1000 Units/ml)) 6,900 unit PER PROTOCOL PRN IV aPTT<47 Last administered on 12/16/18at 09:45; Admin Dose 6,900 UNIT; Start 12/16/18 at 09:00 Heparin Sodium (Porcine) (Heparin (1000 Units/ml)) 3,500 unit PER PROTOCOL PRN IV aPTT<47-57; Start 12/16/18 at 09:00 Heparin Sodium (Porcine) 250 ml @ 15.545 mls/ hr PER PROTOCOL IV Last administered on 12/17/18at 12:18; Admin Dose 10.363 MLS/HR; Start 12/16/18 at 09:00 Assessment/Plan Assessment/Plan (Daily) IMP: 1. Chronic respiratory failure with tracheostomy 2. Septic shock secondary to UTI 3. History of upper extremity deep vein thrombosis RECS: 1. Titrate levophed gtt to lower MAP of 60; consider midodrine if needed. 2. Continue tube feeding if tolerated 3. Follow UO; lactate clearance 4. Am labs 40 min cc time MARCEL COVINGTON MD Dec 18, 2018 11:02
--- NOTE | 2018-12-18 11:51 | CONS ---
Assessment/Plan Assessment/Plan Hospital Course (Demo Recall) 1. Nonoliguric acute kidney injury with unknown baseline creatinine. Etiology of acute kidney injury is secondary to hemodynamics, sepsis. The patient's renal function has been improving with supportive care. We will continue current treatment plan. Continue pressor support, maintain MAP of 65. Continue IV hydration. Continue antibiotic therapy. 2. 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 The patient, however is in acute kidney injury and appears to be recovering. The plan is to repeat a urine protein creatinine ratio, albumin/creatinine ratio. Defer MICHAELA inhibitor or ARB at this time until renal function and hemodynamics are stabilized. 3. Hypernatremia. Continue free water flushes. Continue hypertonic fluid. 4. Metabolic acidosis secondary to acute kidney injury, improving. Continue to monitor. 5. Anemia. Monitor hemoglobin and hematocrit levels. 6. Septic shock secondary to urinary tract infection and pneumonia. Continue current medical management. Continue IV fluids, IV antibiotics. 7. Chronic respiratory failure, status post trach. The patient is currently stable on trach mask. 8. Acute encephalopathy. Etiology is toxic metabolic. 9. Hypothyroidism. Continue Synthroid. 10. Bilateral lower extremity deep venous thrombosis. Continue medical management. 11. Quadriplegia secondary to C spine injury. Assessment/Plan (Daily) 1. Nonoliguric acute kidney injury with unknown baseline creatinine. Etiology of acute kidney injury is secondary to hemodynamics, sepsis. The patient's r enal function has been improving with supportive care. We will continue current treatment plan. Continue pressor support, maintain MAP of 65. Continue IV hydration. Continue antibiotic therapy. 2. 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 The patient, however is in acute kidney injury and appears to be recovering. The plan is to repeat a urine protein creatinine ratio, albumin/creatinine ratio. Defer MICHAELA inhibitor or ARB at this time until renal function and hemodynamics are stabilized. 3. Hypernatremia. Continue free water flushes. Continue hypertonic fluid. 4. Metabolic acidosis secondary to acute kidney injury, improving. Continue to monitor. 5. Anemia. Monitor hemoglobin and hematocrit levels. 6. Septic shock secondary to urinary tract infection and pneumonia. Continue current medical management. Continue IV fluids, IV antibiotics. 7. Chronic respiratory failure, status post trach. The patient is currently stable on trach mask. 8. Acute encephalopathy. Etiology is toxic metabolic. 9. Hypothyroidism. Continue Synthroid. 10. Bilateral lower extremity deep venous thrombosis. Continue medical management. 11. Quadriplegia secondary to C spine injury. Consultation Date/Type/Reason Admit Date/Time Dec 11, 2018 at 20:30 Initial Consult Date 12/13/18 Requesting Provider: JOSE J DEMPSEY Date/Time of Note DATE: 12/18/18 TIME: 11:50 24 HR Interval Summary Free Text/Dictation remains on levophed adequate urine output remains on the vent via trach d/w rn gen nad cv rrr pulm coarse bs abd soft, nd, nt +bs ext: no edema Exam/Review of Systems Exam Vitals Vital Signs Date Temp Pulse Resp B/P (MAP) Pulse Ox O2 O2 Flow FiO2 Time Delivery Rate 12/18/18 74 14 91/56 (68) 94 09:30 12/18/18 Trach 09:00 Collar 12/18/18 97.6 08:00 12/18/18 5.0 08:00 12/18/18 28 04:50 Intake and Output 12/17/18 12/17/18 12/18/18 1515:00 23:00 07:00 IntakeIntake Total 1307.789 ml 1282.286 ml 1430.0000 ml OutputOutput Total 675 ml 810 ml 890 ml BalanceBalance 632.789 ml 472.286 ml 540.0000 ml Results Result Diagram: 12/18/18 0459 12/18/18 0459 Results 24hrs Laboratory Tests Test 12/17/18 15:38 12/17/18 20:44 12/18/18 02:51 12/18/18 04:57 Activated 146.0 *H 89.7 *H 101.5 *H Partial Thrombopla st Time Random Cortisol 11.1 Test 12/18/18 04:58 12/18/18 04:59 12/18/18 05:00 12/18/18 10:20 Lactic Acid Level 1.0 White Blood Count 7.5 Red Blood Count 2.93 L Hemoglobin 8.2 L Hematocrit 26.0 L Mean Corpuscular 88.7 Volume Mean Corpuscular 28.0 L Hemoglobin Mean Corpuscular 31.5 L Hemoglobin Concent Red Cell 15.9 H Distribution Width Platelet Count 225 Mean Platelet 10.4 Volume Immature 1.900 H Granulocytes % Neutrophils % 63.5 Lymphocytes % 22.8 Monocytes % 10.4 Eosinophils % 1.1 Basophils % 0.3 Nucleated Red 1.2 H Blood Cells % Immature 0.140 H Granulocytes # Neutrophils # 4.8 Lymphocytes # 1.7 Monocytes # 0.8 Eosinophils # 0.1 Basophils # 0.0 Nucleated Red 0.1 H Blood Cells # Sodium Level 144 Potassium Level 4.2 Chloride Level 118 H Carbon Dioxide 22 Level Anion Gap 4 L Blood Urea 38 H Nitrogen Creatinine 0.57 Est Glomerular > 60 Filtrat Rate mL/min Glucose Level 114 Calcium Level 8.6 Magnesium Level 2.1 Blood Gas Specimen Blood arterial Source Arterial Blood 12/18/2018 4:30:02 Date Drawn AM Arterial Blood pH 7.364 (Temp corrected) Arterial Blood 40.7 pCO2 (Temp correct) Arterial Blood pO2 100.6 H (Temp corrected) Arterial Blood 22.7 HCO3 Arterial Blood -2.5 Base Excess Arterial Blood 97.9 Oxygen Saturation Robert Test ACCEPTAB Arterial Blood Gas Left Radial Puncture Site Arterial 0.5 Blood Carboxyhemog lobin Arterial Blood 0.1 Methemoglobin Blood Gas A-a O2 51.0 H Differential Oxyhemoglobin 97.3 Percent Blood Gas 37.0 Temperature Blood Gas Modality TRACH COLLAR FiO2 28.0 Blood Gas Notified MA Whom Blood Gas Notified 12/18/2018 5:03:52 Time AM Activated 119.9 *H Partial Thrombopla st Time Medications Medication Current Medications IV Flush (NS 3 ml) 3 ml PER PROTOCOL IV ; Start 12/11/18 at 19:00 Ondansetron HCl (Zofran Inj) 4 mg Q6H PRN IV NAUSEA/VOMITING; Start 12/11/18 at 19:00 Acetaminophen (Tylenol Tab) 650 mg Q6H PRN PO .PAIN 1-3 OR TEMP; Start 12/11/18 at 19:00 Acetaminophen/ Hydrocodone Bitart ([place] (5/325)) 1 tab Q6H PRN PO .MOD PAIN 4- 6; Start 12/11/18 at 19:00 Acetaminophen (Tylenol Tab) 650 mg Q6H PRN GTB MILD PAIN LEVEL 1-3; Start 12/11/18 at 19:00 Ascorbic Acid (Vitamin C) 500 mg DAILY GTB Last administered on 12/18/18 08:13; Admin Dose 500 MG; Start 12/12/18 at 09:00 Clonidine (Catapres) 0.1 mg Q6H PRN GTB FOR SBP>160; Start 12/11/18 at 19:00 Gabapentin (Neurontin) 300 mg QHS GTB Last administered on 12/17/18 21:01; Admin Dose 300 MG; Start 12/11/18 at 21:00 Levothyroxine Sodium (Synthroid) 75 mcg BEFORE BREAKFAST GTB Last administered on 12/18/18 06:10; Admin Dose 75 MCG; Start 12/12/18 at 07:00 Simethicone (Mylicon) 80 mg Q6H GTB Last administered on 12/18/18 06:10; Admin Dose 80 MG; Start 12/11/18 at 19:00 Albuterol/ Ipratropium (Duoneb) 3 ml Q4H RESP THERAPY PRN HHN SHORTNESS OF BREATH; Start 12/11/18 at 19:00 Piperacillin Sod/ Tazobactam Sod 100 ml @ 200 mls/hr Q6 IVPB Last administered on 12/18/18 06:10; Admin Dose 200 MLS/HR; Start 12/12/18 at 00:00 Norepinephrine 250 ml @ 1.875 mls/ hr TITRATE IV Last administered on 12/17/18 04:58; Admin Dose 3.75 MLS/HR; Start 12/12/18 at 05:00 IV Flush (NS 10 ml) 10 ml PRN PRN IV IV PROTOCOL; Start 12/12/18 at 17:00 Morphine Sulfate (morphine) 6 mg Q4H PRN GTB .SEVERE PAIN 7-10; Start 12/13/18 at 12:00 Dextrose/Sodium Chloride 1,000 ml @ 50 mls/hr Q20H IV Last administered on 12/17/18 21:02; Admin Dose 50 MLS/HR; Start 12/13/18 at 12:30 Mupirocin (Bactroban) 1 applic BID TOP Last administered on 12/18/18 08:14; Admin Dose 1 APPLIC; Start 12/13/18 at 21:00; Stop 12/20/18 at 09:01 Midodrine (Proamatine) 5 mg TID@0900,1300,1700 PO Last administered on 12/18/18at 08:13; Admin Dose 5 MG; Start 12/14/18 at 09:30 Vancomycin HCl (Vanco Iv Per Pharmacy) VANCOMYCIN PER PHARMACY PER PROTOCOL XX ; Start 12/14/18 at 11:30 Vancomycin HCl 250 ml @ 125 mls/hr Q12H IVPB Last administered on 12/16/18at 02:18; Admin Dose 125 MLS/HR; Start 12/15/18 at 02:00; Status Hold Fluconazole (Diflucan) 100 mg DAILY PO Last administered on 12/18/18at 08:13; Admin Dose 100 MG; Start 12/15/18 at 15:00 Heparin Sodium (Porcine) (Heparin (1000 Units/ml)) 6,900 unit PER PROTOCOL PRN IV aPTT<47 Last administered on 12/16/18at 09:45; Admin Dose 6,900 UNIT; Start 12/16/18 at 09:00 Heparin Sodium (Porcine) (Heparin (1000 Units/ml)) 3,500 unit PER PROTOCOL PRN IV aPTT<47-57; Start 12/16/18 at 09:00 Heparin Sodium (Porcine) 250 ml @ 0 mls/hr PER PROTOCOL IV ; Start 12/16/18 at 09:00; Status NATALIYA KEITH MD Dec 18, 2018 11:51
[2018-12-18] MEDS ORDERED: HEPARIN 25000 UNITS/250 ML 250 ML IV SCH (12:00)
[2018-12-18] MEDS: NORepinephrine 8MG/250 ML (PMX 250 ML IV SCH (12:23)
--- NOTE | 2018-12-18 14:33 | CONS ---
Assessment/Plan Assessment/Plan Hospital Course (Demo Recall) No acute events, patient remains on low-dose levo fed and heparin drips, no fevers Microbiology: Blood cultures remain negative, MRSA swab positive sputum culture neg urine culture grew Shannon albicans Antimicrobials: Vancomycin, Zosyn Diflucan Indwelling: Trach PEG [place], PICC line Physical examination: Chronically ill-appearing elderly woman who is awake in no distress. Head atraumatic normocephalic sclera nonicteric neck is supple tracheostomy present [place] valve present chest rise symmetrical breath sounds diminished to bases with scattered rhonchi. Heart: S1-S2. Abdomen soft bowel sounds present. Extremities with dependent edema. Assessment: 1. Sepsis, resolving 2. Healthcare associated pneumonia 3. Urinary tract infection 4. MRSA nares colonization 5. Chronic respiratory failure and dysphagia 6. Bilateral lower extremities DVT Plan: Remains unchanged, continue antibiotics Consultation Date/Type/Reason Admit Date/Time Dec 11, 2018 at 20:30 Initial Consult Date 12/13/18 Type of Consult id Requesting Provider: JOSE J DEMPSEY Date/Time of Note DATE: 12/18/18 TIME: 14:31 Exam/Review of Systems Exam Vitals Vital Signs Date Temp Pulse Resp B/P (MAP) Pulse Ox O2 O2 Flow FiO2 Time Delivery Rate 12/18/18 57 13 115/75 98 Trach 14:00 (88) Collar 12/18/18 97.8 12:00 12/18/18 5.0 08:00 12/18/18 28 04:50 Intake and Output 12/17/18 12/17/18 12/18/18 1515:00 23:00 07:00 IntakeIntake Total 1407.789 ml 1282.286 ml 1430.0000 ml OutputOutput Total 675 ml 810 ml 890 ml BalanceBalance 732.789 ml 472.286 ml 540.0000 ml Results Result Diagram: 12/18/18 0459 12/18/18 0459 Results 24hrs Laboratory Tests Test 12/17/18 15:38 12/17/18 20:44 12/18/18 02:51 12/18/18 04:57 Activated 146.0 *H 89.7 *H 101.5 *H Partial Thrombopla st Time Random Cortisol 11.1 Test 12/18/18 04:58 12/18/18 04:59 12/18/18 05:00 12/18/18 10:20 Lactic Acid Level 1.0 White Blood Count 7.5 Red Blood Count 2.93 L Hemoglobin 8.2 L Hematocrit 26.0 L Mean Corpuscular 88.7 Volume Mean Corpuscular 28.0 L Hemoglobin Mean Corpuscular 31.5 L Hemoglobin Concent Red Cell 15.9 H Distribution Width Platelet Count 225 Mean Platelet 10.4 Volume Immature 1.900 H Granulocytes % Neutrophils % 63.5 Lymphocytes % 22.8 Monocytes % 10.4 Eosinophils % 1.1 Basophils % 0.3 Nucleated Red 1.2 H Blood Cells % Immature 0.140 H Granulocytes # Neutrophils # 4.8 Lymphocytes # 1.7 Monocytes # 0.8 Eosinophils # 0.1 Basophils # 0.0 Nucleated Red 0.1 H Blood Cells # Sodium Level 144 Potassium Level 4.2 Chloride Level 118 H Carbon Dioxide 22 Level Anion Gap 4 L Blood Urea 38 H Nitrogen Creatinine 0.57 Est Glomerular > 60 Filtrat Rate mL/min Glucose Level 114 Calcium Level 8.6 Magnesium Level 2.1 Blood Gas Specimen Blood arterial Source Arterial Blood 12/18/2018 4:30:02 Date Drawn AM Arterial Blood pH 7.364 (Temp corrected) Arterial Blood 40.7 pCO2 (Temp correct) Arterial Blood pO2 100.6 H (Temp corrected) Arterial Blood 22.7 HCO3 Arterial Blood -2.5 Base Excess Arterial Blood 97.9 Oxygen Saturation Robert Test ACCEPTAB Arterial Blood Gas Left Radial Puncture Site Arterial 0.5 Blood Carboxyhemog lobin Arterial Blood 0.1 Methemoglobin Blood Gas A-a O2 51.0 H Differential Oxyhemoglobin 97.3 Percent Blood Gas 37.0 Temperature Blood Gas Modality TRACH COLLAR FiO2 28.0 Blood Gas Notified MA Whom Blood Gas Notified 12/18/2018 5:03:52 Time AM Activated 119.9 *H Partial Thrombopla st Time Medications Medication Current Medications IV Flush (NS 3 ml) 3 ml PER PROTOCOL IV ; Start 12/11/18 at 19:00 Ondansetron HCl (Zofran Inj) 4 mg Q6H PRN IV NAUSEA/VOMITING; Start 12/11/18 at 19:00 Acetaminophen (Tylenol Tab) 650 mg Q6H PRN PO .PAIN 1-3 OR TEMP; Start 12/11/18 at 19:00 Acetaminophen/ Hydrocodone Bitart ([place] (5/325)) 1 tab Q6H PRN PO .MOD PAIN 4- 6; Start 12/11/18 at 19:00 Acetaminophen (Tylenol Tab) 650 mg Q6H PRN GTB MILD PAIN LEVEL 1-3; Start 12/11/18 at 19:00 Ascorbic Acid (Vitamin C) 500 mg DAILY GTB Last administered on 12/18/18 08:13; Admin Dose 500 MG; Start 12/12/18 at 09:00 Clonidine (Catapres) 0.1 mg Q6H PRN GTB FOR SBP>160; Start 12/11/18 at 19:00 Gabapentin (Neurontin) 300 mg QHS GTB Last administered on 12/17/18 21:01; Admin Dose 300 MG; Start 12/11/18 at 21:00 Levothyroxine Sodium (Synthroid) 75 mcg BEFORE BREAKFAST GTB Last administered on 12/18/18 06:10; Admin Dose 75 MCG; Start 12/12/18 at 07:00 Simethicone (Mylicon) 80 mg Q6H GTB Last administered on 12/18/18 12:21; Admin Dose 80 MG; Start 12/11/18 at 19:00 Albuterol/ Ipratropium (Duoneb) 3 ml Q4H RESP THERAPY PRN HHN SHORTNESS OF BREATH; Start 12/11/18 at 19:00 Piperacillin Sod/ Tazobactam Sod 100 ml @ 200 mls/hr Q6 IVPB Last administered on 12/18/18 12:21; Admin Dose 200 MLS/HR; Start 12/12/18 at 00:00 Norepinephrine 250 ml @ 1.875 mls/ hr TITRATE IV Last administered on 12/18/18 12:23; Admin Dose 1.875 MLS/HR; Start 12/12/18 at 05:00 IV Flush (NS 10 ml) 10 ml PRN PRN IV IV PROTOCOL; Start 12/12/18 at 17:00 Morphine Sulfate (morphine) 6 mg Q4H PRN GTB .SEVERE PAIN 7-10; Start 12/13/18 at 12:00 Dextrose/Sodium Chloride 1,000 ml @ 50 mls/hr Q20H IV Last administered on 12/17/18 21:02; Admin Dose 50 MLS/HR; Start 12/13/18 at 12:30 Mupirocin (Bactroban) 1 applic BID TOP Last administered on 12/18/18at 08:14; Admin Dose 1 APPLIC; Start 12/13/18 at 21:00; Stop 12/20/18 at 09:01 Midodrine (Proamatine) 5 mg TID@0900,1300,1700 PO Last administered on 12/18/18at 12:21; Admin Dose 5 MG; Start 12/14/18 at 09:30 Vancomycin HCl (Vanco Iv Per Pharmacy) VANCOMYCIN PER PHARMACY PER PROTOCOL XX ; Start 12/14/18 at 11:30 Vancomycin HCl 250 ml @ 125 mls/hr Q12H IVPB Last administered on 12/16/18at 02:18; Admin Dose 125 MLS/HR; Start 12/15/18 at 02:00; Status Hold Fluconazole (Diflucan) 100 mg DAILY PO Last administered on 12/18/18at 08:13; Admin Dose 100 MG; Start 12/15/18 at 15:00 Heparin Sodium (Porcine) (Heparin (1000 Units/ml)) 6,900 unit PER PROTOCOL PRN IV aPTT<47 Last administered on 12/16/18at 09:45; Admin Dose 6,900 UNIT; Start 12/16/18 at 09:00 Heparin Sodium (Porcine) (Heparin (1000 Units/ml)) 3,500 unit PER PROTOCOL PRN IV aPTT<47-57; Start 12/16/18 at 09:00 Heparin Sodium (Porcine) 250 ml @ 5.5 mls/hr PER PROTOCOL IV Last administered on 12/18/18at 12:23; Admin Dose 5.5 MLS/HR; Start 12/18/18 at 12:00 Miscellaneous Information (*Rx Drug Level Order Reminder*) RANDOM VANCO LEVEL... 0500 ONCE XX ; Start 12/19/18 at 05:00; Stop 12/19/18 at 05:01 RAMAN NICOLAS NP Dec 18, 2018 14:33
[2018-12-18] MEDS: DEXTROSE 5%-0.225% NACL 1,000 ML IV SCH (17:20)
[2018-12-18] MEDS: GABAPENTIN 300 MG CAP GTB SCH (20:37)
[2018-12-19] VITALS (76 sets, daily range): BP systolic 71–132; BP diastolic 49–87; PULSE 53–85; RESP 11–28
[2018-12-19] MEDS: LEVOTHYROXINE 75 MCG TAB GTB SCH (06:31)
[2018-12-19] MEDS: PIPER-TAZO 3.375 GM IV (PMX) 100 ML IVPB SCH ×3 (06:31→11:45)
--- NOTE | 2018-12-19 08:15 | PN ---
DATE: 12/19/2018 SUBJECTIVE: The patient remains critically ill on pressor support. No other acute events noted. Th e patient's urinary output has been adequate. OBJECTIVE: VITAL SIGNS: Blood pressure 97/66, respirations 13, pulse 70, temperature 98.6. I's and O's reviewed . HEENT: Head is normocephalic. NECK: Neck shows a trach. HEART: Regular rate. LUNGS: Show diminished breath sounds at the base. ABDOMEN: Soft, nontender to palpation, positive PEG. EXTREMITIES: Negative for clubbing, cyanosis. Positive edema. DERMATOLOGIC: No rashes. MUSCULOSKELETAL: No joint effusion. NEUROLOGIC: No change in exam. MEDICATIONS: The patient's medications have been reviewed LABORATORY DATA: The laboratory data has been reviewed. The patient's cultures have been reviewed. ASSESSMENT AND PLAN: 1. Nonoliguric acute kidney injury with unknown baseline creatinine. Etiology of acute kidney injur y is secondary to hemodynamics, sepsis. The patient's renal function has been improving with support camila care. Continue current treatment plan, continue to renally dose all meds, avoid nephrotoxins. C ontinue pressor support to maintain MAP of 65. 2. 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 Etiology is unclear, possibly a primary glomerulopathy versus severe ATN. The patient's repeat urine protein creatinine ratio continues to show significant proteinuria. Plan is to check a serological workup. Continue to treat acute kidney injury as stated above. 3. Hypernatremia. Continue free water flushes. Continue hypertonic fluids. 4. Metabolic acidosis secondary to acute kidney injury, improving. 5. Anemia. Monitor hemoglobin and hematocrit levels. 6. Septic shock secondary to UTI and pneumonia. Continue medical management. Continue pressor supp ort. Continue midodrine, IV antibiotics and fluids. 7. Chronic respiratory failure, status trach. Currently stable on trach mask. 8. Acute encephalopathy, etiology is toxic metabolic. 9. Hypothyroidism. Continue Synthroid. 10. Bilateral extremity deep venous thrombosis. Continue medical management. 11. Functional quadriplegia secondary to C-spine injury. Dictated By: MARINO CORRAL DO NR/NTS Conf#: [id number] DID#: [id number] CC: CRUZ GORDILLO MD; ZACH GROVER MD; JOANNE FLORES MD;*End*
[2018-12-19] MEDS: FLUCONAZOLE 100 MG TAB PO SCH (09:20)
[2018-12-19] MEDS: ASCORBIC ACID 500 MG TAB GTB SCH (09:20)
[2018-12-19] MEDS: MIDODRINE 5 MG TAB PO SCH ×3 (09:20→21:17)
[2018-12-19] MEDS: MUPIROCIN 2% 22 GM OINT TOP SCH ×2 (09:20→21:16)
--- NOTE | 2018-12-19 10:30 | CONS ---
Assessment/Plan Assessment/Plan Assessment/Plan (Daily) Assessment and recommendations; 1. Patient with history of respiratory failure maintained on tracheostomy admitted for UTI and sepsis still requiring low-dose Levophed at 2.5 mics per minute. 2. History of incomplete quadriplegia. 3. History of hypothyroidism and neuropathy. Continue current supportive care. Wean down pressor support as tolerated. Consultation Date/Type/Reason Admit Date/Time Dec 11, 2018 at 20:30 Initial Consult Date 12/12/18 Type of Consult Pulmonary/critical care Patient is a 68-year-old lady who was admitted to the hospital [facility] with hypotension as well as altered mental status. Patient has been diagnosed with bilateral pneumonia as well as severe prerenal azotemia with hyponatremia as well as anemia. The patient has improved after being admitted with significant improvement in mental status still requiring low-dose Levophed. The patient has been adequately fluid resuscitated and also getting blood transfusion. By the time I saw her in ICU, patient is on her tracheostomy with Applied and is appropriately responsive. Patient did not appear to be in any distress. Past medical history; 1. History of C-spine surgery with functional quadriplegia. 2. History of G-tube placement. 3. Possibly chronic encephalopathy. 4. Chronic respiratory failure, patient however doing fairly well on tracheostomy with capping. Medications; reviewed. Patient is currently on Levophed 2 mics per minute. Allergies; as outlined above. Social history; noncontributory. Family history; not available. Occupational history; not available. Review of systems; not able to be obtained. General exam; elderly woman, awake and fairly responsive. Currently in no distress. Requesting Provider: JOSE J DEMPSEY Date/Time of Note DATE: 12/19/18 TIME: 10:27 24 HR Interval Summary Free Text/Dictation Patient's condition remains tenuous. Still requiring Levophed at low-dose. General exam; elderly female, awake and responsive appropriately. Currently in no distress. Exam/Review of Systems Exam Vitals Vital Signs Date Temp Pulse Resp B/P (MAP) Pulse Ox O2 O2 Flow FiO2 Time Delivery Rate 12/19/18 71 16 107/81 97 10:00 (90) 12/19/18 98.4 Trach 08:00 Collar 12/19/18 5.0 08:00 12/19/18 28 07:46 Intake and Output 12/18/18 12/18/18 12/19/18 1515:00 23:00 07:00 IntakeIntake Total 1812.357 ml 1305.001 ml 1300.252 ml OutputOutput Total 725 ml 750 ml 700 ml BalanceBalance 1087.357 ml 555.001 ml 600.252 ml Exam H EENT exam; supple neck, no JVD. No lymphadenopathy. Midline trachea. No thyromegaly. Tracheostomy in place, attached to T piece. Chest exam; clear to auscultation. S1-S2 audible, no murmurs. Regular rhythm. Abdomen exam; soft, no organomegaly. G-tube in place. Bowel sounds audible. Extremity exam; no peripheral edema. [employer] exam; patient awake responsive appropriately able to move hands with paraplegia. Results Result Diagram: 12/19/180 12/19/18429 Results 24hrs Laboratory Tests Test 12/18/18 18:25 12/19/18 01:09 12/19/18 04:30 12/19/18 08:01 Activated 69.5 H 65.2 H 104.2 *H Partial Thromboplast Time White Blood Count 7.8 Red Blood Count 2.94 L Hemoglobin 8.2 L Hematocrit 26.0 L Mean Corpuscular Volume 88.4 Mean Corpuscular 27.9 L Hemoglobin Mean Corpuscular 31.5 L Hemoglobin Concent Red Cell Distribution 16.2 H Width Platelet Count 246 Mean Platelet Volume 10.9 H Immature Granulocytes % 1.200 H Neutrophils % 66.6 Lymphocytes % 20.5 Monocytes % 10.3 Eosinophils % 0.9 Basophils % 0.5 Nucleated Red Blood 0.8 H Cells % Immature Granulocytes # 0.090 H Neutrophils # 5.2 Lymphocytes # 1.6 Monocytes # 0.8 Eosinophils # 0.1 Basophils # 0.0 Nucleated Red Blood 0.1 H Cells # Sodium Level 144 Potassium Level 4.3 Chloride Level 114 H Carbon Dioxide Level 24 Anion Gap 6 Blood Urea Nitrogen 31 H Creatinine 0.59 Est Glomerular Filtrat > 60 Rate mL/min Glucose Level 113 Lactic Acid Level 1.1 Calcium Level 8.8 Random Vancomycin Level 17.1 Medications Medication Current Medications IV Flush (NS 3 ml) 3 ml PER PROTOCOL IV ; Start 12/11/18 at 19:00 Ondansetron HCl (Zofran Inj) 4 mg Q6H PRN IV NAUSEA/VOMITING; Start 12/11/18 at 19:00 Acetaminophen (Tylenol Tab) 650 mg Q6H PRN PO .PAIN 1-3 OR TEMP; Start 12/11/18 at 19:00 Acetaminophen/ Hydrocodone Bitart ([place] (5/325)) 1 tab Q6H PRN PO .MOD PAIN 4- 6; Start 12/11/18 at 19:00 Acetaminophen (Tylenol Tab) 650 mg Q6H PRN GTB MILD PAIN LEVEL 1-3; Start 12/11/18 at 19:00 Ascorbic Acid (Vitamin C) 500 mg DAILY GTB Last administered on 12/19/18 09:20; Admin Dose 500 MG; Start 12/12/18 at 09:00 Clonidine (Catapres) 0.1 mg Q6H PRN GTB FOR SBP>160; Start 12/11/18 at 19:00 Gabapentin (Neurontin) 300 mg QHS GTB Last administered on 12/18/18at 20:37; Admin Dose 300 MG; Start 12/11/18 at 21:00 Levothyroxine Sodium (Synthroid) 75 mcg BEFORE BREAKFAST GTB Last administered on 12/19/18 06:31; Admin Dose 75 MCG; Start 12/12/18 at 07:00 Simethicone (Mylicon) 80 mg Q6H GTB Last administered on 12/19/18 06:31; Admin Dose 80 MG; Start 12/11/18 at 19:00 Albuterol/ Ipratropium (Duoneb) 3 ml Q4H RESP THERAPY PRN HHN SHORTNESS OF BREATH; Start 12/11/18 at 19:00 Piperacillin Sod/ Tazobactam Sod 100 ml @ 200 mls/hr Q6 IVPB Last administered on 12/19/18 06:31; Admin Dose 200 MLS/HR; Start 12/12/18 at 00:00 Norepinephrine 250 ml @ 1.875 mls/ hr TITRATE IV Last administered on 12/18/18at 12:23; Admin Dose 1.875 MLS/HR; Start 12/12/18 at 05:00 IV Flush (NS 10 ml) 10 ml PRN PRN IV IV PROTOCOL; Start 12/12/18 at 17:00 Morphine Sulfate (morphine) 6 mg Q4H PRN GTB .SEVERE PAIN 7-10; Start 12/13/18 at 12:00 Dextrose/Sodium Chloride 1,000 ml @ 50 mls/hr Q20H IV Last administered on 12/18/18 17:20; Admin Dose 50 MLS/HR; Start 12/13/18 at 12:30 Mupirocin (Bactroban) 1 applic BID TOP Last administered on 12/19/18 09:20; Admin Dose 1 APPLIC; Start 12/13/18 at 21:00; Stop 12/20/18 at 09:01 Vancomycin HCl (Vanco Iv Per Pharmacy) VANCOMYCIN PER PHARMACY PER PROTOCOL XX ; Start 12/14/18 at 11:30 Vancomycin HCl 250 ml @ 125 mls/hr Q12H IVPB Last administered on 12/16/18 02:18; Admin Dose 125 MLS/HR; Start 12/15/18 at 02:00; Status Hold Fluconazole (Diflucan) 100 mg DAILY PO Last administered on 12/19/18 09:20; Admin Dose 100 MG; Start 12/15/18 at 15:00 Heparin Sodium (Porcine) (Heparin (1000 Units/ml)) 6,900 unit PER PROTOCOL PRN IV aPTT<47 Last administered on 12/16/18 09:45; Admin Dose 6,900 UNIT; Start 12/16/18 at 09:00 Heparin Sodium (Porcine) (Heparin (1000 Units/ml)) 3,500 unit PER PROTOCOL PRN IV aPTT<47-57; Start 12/16/18 at 09:00 Heparin Sodium (Porcine) 250 ml @ 5.5 mls/hr PER PROTOCOL IV Last administered on 12/18/18 12:23; Admin Dose 5.5 MLS/HR; Start 12/18/18 at 12:00 Midodrine (Proamatine) 10 mg Q8 PO Last administered on 12/19/18 09:20; Admin Dose 10 MG; Start 12/19/18 at 08:30 KARLA MAJOR Dec 19, 2018 10:30
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
[2018-12-19] MEDS ORDERED: NORepinephrine 8MG/250 ML (PMX 250 ML IV SCH (12:30)
[2018-12-19] MEDS ORDERED: VANCOMYCIN 1 GM 250 ML IVPB SCH (14:00)
--- NOTE | 2018-12-19 14:14 | CONS ---
Assessment/Plan Assessment/Plan Hospital Course (Demo Recall) No acute events, patient is off Levophed drip, remains on heparin drip looks comfortable afebrile WBC 7.8 platelets 246 neutrophils 66.6 BUN 31 creatinine 0.59 Microbiology: Blood cultures remain negative, MRSA swab positive sputum culture neg urine culture grew Shannon albicans Antimicrobials: Vancomycin, Zosyn Diflucan Indwelling: Trach PEG [place], PICC line Physical examination: Chronically ill-appearing elderly woman who is awake in no distress. Head atraumatic normocephalic sclera nonicteric neck is supple tracheostomy present [place] valve present chest rise symmetrical breath sounds diminished to bases with scattered rhonchi. Heart: S1-S2. Abdomen soft bowel sounds present. Extremities with dependent edema. Assessment: 1. Sepsis, resolving 2. Healthcare associated pneumonia 3. Urinary tract infection 4. MRSA nares colonization 5. Chronic respiratory failure and dysphagia 6. Bilateral lower extremities DVT Plan: Remains unchanged, dc antibiotics and observe Consultation Date/Type/Reason Admit Date/Time Dec 11, 2018 at 20:30 Initial Consult Date 12/13/18 Type of Consult id Requesting Provider: JOSE J DEMPSEY Date/Time of Note DATE: 12/19/18 TIME: 14:13 Exam/Review of Systems Exam Vitals Vital Signs Date Temp Pulse Resp B/P (MAP) Pulse Ox O2 O2 Flow FiO2 Time Delivery Rate 12/19/18 74 18 85/56 (66) 98 13:00 12/19/18 Aerosol 5.0 28 12:08 12/19/18 98.9 12:00 Intake and Output 12/18/18 12/18/18 12/19/18 1515:00 23:00 07:00 IntakeIntake Total 1812.357 ml 1305.001 ml 1445.252 ml OutputOutput Total 725 ml 750 ml 800 ml BalanceBalance 1087.357 ml 555.001 ml 645.252 ml Results Result Diagram: 12/19/1842912/19/18 0430 Results 24hrs Laboratory Tests Test 12/18/18 18:25 12/19/18 01:09 12/19/18 04:30 12/19/18 08:01 Activated 69.5 H 65.2 H 104.2 *H Partial Thromboplast Time White Blood Count 7.8 Red Blood Count 2.94 L Hemoglobin 8.2 L Hematocrit 26.0 L Mean Corpuscular Volume 88.4 Mean Corpuscular 27.9 L Hemoglobin Mean Corpuscular 31.5 L Hemoglobin Concent Red Cell Distribution 16.2 H Width Platelet Count 246 Mean Platelet Volume 10.9 H Immature Granulocytes % 1.200 H Neutrophils % 66.6 Lymphocytes % 20.5 Monocytes % 10.3 Eosinophils % 0.9 Basophils % 0.5 Nucleated Red Blood 0.8 H Cells % Immature Granulocytes # 0.090 H Neutrophils # 5.2 Lymphocytes # 1.6 Monocytes # 0.8 Eosinophils # 0.1 Basophils # 0.0 Nucleated Red Blood 0.1 H Cells # Sodium Level 144 Potassium Level 4.3 Chloride Level 114 H Carbon Dioxide Level 24 Anion Gap 6 Blood Urea Nitrogen 31 H Creatinine 0.59 Est Glomerular Filtrat > 60 Rate mL/min Glucose Level 113 Lactic Acid Level 1.1 Calcium Level 8.8 Random Vancomycin Level 17.1 Medications Medication Current Medications IV Flush (NS 3 ml) 3 ml PER PROTOCOL IV ; Start 12/11/18 at 19:00 Ondansetron HCl (Zofran Inj) 4 mg Q6H PRN IV NAUSEA/VOMITING; Start 12/11/18 at 19:00 Acetaminophen (Tylenol Tab) 650 mg Q6H PRN PO .PAIN 1-3 OR TEMP; Start 12/11/18 at 19:00 Acetaminophen/ Hydrocodone Bitart ([place] (5/325)) 1 tab Q6H PRN PO .MOD PAIN 4- 6; Start 12/11/18 at 19:00 Acetaminophen (Tylenol Tab) 650 mg Q6H PRN GTB MILD PAIN LEVEL 1-3; Start 12/11/18 at 19:00 Ascorbic Acid (Vitamin C) 500 mg DAILY GTB Last administered on 12/19/18at 09:20; Admin Dose 500 MG; Start 12/12/18 at 09:00 Clonidine (Catapres) 0.1 mg Q6H PRN GTB FOR SBP>160; Start 12/11/18 at 19:00 Gabapentin (Neurontin) 300 mg QHS GTB Last administered on 12/18/18at 20:37; Admin Dose 300 MG; Start 12/11/18 at 21:00 Levothyroxine Sodium (Synthroid) 75 mcg BEFORE BREAKFAST GTB Last administered on 4/8/19at 06:31; Admin Dose 75 MCG; Start 12/12/18 at 07:00 Simethicone (Mylicon) 80 mg Q6H GTB Last administered on 12/19/18 11:45; Admin Dose 80 MG; Start 12/11/18 at 19:00 Albuterol/ Ipratropium (Duoneb) 3 ml Q4H RESP THERAPY PRN HHN SHORTNESS OF B REATH; Start 12/11/18 at 19:00 Piperacillin Sod/ Tazobactam Sod 100 ml @ 200 mls/hr Q6 IVPB Last administered on 12/19/18 11:45; Admin Dose 200 MLS/HR; Start 12/12/18 at 00:00 IV Flush (NS 10 ml) 10 ml PRN PRN IV IV PROTOCOL; Start 12/12/18 at 17:00 Morphine Sulfate (morphine) 6 mg Q4H PRN GTB .SEVERE PAIN 7-10; Start 12/13/18 at 12:00 Dextrose/Sodium Chloride 1,000 ml @ 50 mls/hr Q20H IV Last administered on 12/18/18 17:20; Admin Dose 50 MLS/HR; Start 12/13/18 at 12:30 Mupirocin (Bactroban) 1 applic BID TOP Last administered on 12/19/18 09:20; Admin Dose 1 APPLIC; Start 12/13/18 at 21:00; Stop 12/20/18 at 09:01 Vancomycin HCl (Vanco Iv Per Pharmacy) VANCOMYCIN PER PHARMACY PER PROTOCOL XX ; Start 12/14/18 at 11:30 Fluconazole (Diflucan) 100 mg DAILY PO Last administered on 12/19/18 09:20; Admin Dose 100 MG; Start 12/15/18 at 15:00 Heparin Sodium (Porcine) (Heparin (1000 Units/ml)) 6,900 unit PER PROTOCOL PRN IV aPTT<47 Last administered on 12/16/18 09:45; Admin Dose 6,900 UNIT; Start 12/16/18 at 09:00; Stop 12/19/18 at 17:00 Heparin Sodium (Porcine) (Heparin (1000 Units/ml)) 3,500 unit PER PROTOCOL PRN IV aPTT<47-57; Start 12/16/18 at 09:00; Stop 4/8/19 at 17:00 Heparin Sodium (Porcine) 250 ml @ 5.5 mls/hr PER PROTOCOL IV Last administered on 12/18/18at 12:23; Admin Dose 5.5 MLS/HR; Start 12/18/18 at 12:00; Stop 12/19/18 at 17:00 Midodrine (Proamatine) 10 mg Q8 PO Last administered on 12/19/18at 13:43; Admin Dose 10 MG; Start 12/19/18 at 08:30 Apixaban (Eliquis) 10 mg BID PO ; Start 12/19/18 at 21:00; Stop 12/26/18 at 20:59 Apixaban (Eliquis) 5 mg BID PO ; Start 12/26/18 at 21:00 Norepinephrine 250 ml @ 1.875 mls/ hr TITRATE IV ; Start 12/19/18 at 12:30 Vancomycin HCl 250 ml @ 125 mls/hr Q72H IVPB Last administered on 12/19/18at 13:42; Admin Dose 125 MLS/HR; Start 12/19/18 at 14:00 RAMAN NICOLAS NP Dec 19, 2018 14:14
[2018-12-19] MEDS: DEXTROSE 5%-0.225% NACL 1,000 ML IV SCH ×2 (16:36→18:05)
[2018-12-19] MEDS: GABAPENTIN 300 MG CAP GTB SCH (21:16)
[2018-12-19] MEDS: APIXABAN 5 MG TABLET PO SCH (21:16)
[2018-12-20] VITALS (32 sets, daily range): BP systolic 73–156; BP diastolic 40–89; PULSE 45–86; RESP 11–23
[2018-12-20] MEDS ORDERED: SOD CHLORIDE 0.9% 1,000 ML IV SCH (05:00)
[2018-12-20] MEDS: LEVOTHYROXINE 75 MCG TAB GTB SCH (06:50)
[2018-12-20] MEDS: MIDODRINE 5 MG TAB PO SCH ×3 (06:50→21:04)
--- NOTE | 2018-12-20 07:52 | CONS ---
Assessment/Plan Assessment/Plan Assessment/Plan (Daily) Respiratory failure Status post tracheostomy Possible encephalopathy possible severe depression Continue support family members frequent conferencing DO NOT RESUSCITATE status. Consultation Date/Type/Reason Admit Date/Time Dec 11, 2018 at 20:30 Date/Time of Note DATE: 12/20/18 TIME: 07:50 Hx of Present Illness There is been no major change in patient's overall medical condition unfortunately so she still remains on low-dose of Levophed. From a neurological standpoint she remains intact she tracks follow some simple commands. Remains in the intensive care unit secondary to sepsis syndrome and is on aggressive intervention. My last interaction with family members both her daughter and granddaughter was to not do cardiopulmonary assessment substation to change her to DO NOT RESUSCITATE but continue with this level of care. Patient lives in a subacute unit. 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 Doubt chronic encephalopathy possible severe Chronic respiratory failure Hypothyroidism Respiratory: no complaints Cardiovascular: no complaints Past Medical History Home Meds Reported Medications Vancomycin HCl in Dextrose 5 % (Vancomycin 1.5 Gram/250 ml-D5w) 1.5 Gm/250 Ml Plast..bag, 1.5 GM IV Q48H FOR 7 DAYS,END DATE 12/17/18 12/11/18 Tuberculin,Purif.prot.deriv. (Tubersol) 5 Tub Unit/0.1 Ml Vial, 5 TUB ID QHS, VIAL EVERY 365 DAY. 12/11/18 Tramadol Hcl* (Ultram*) 50 Mg Tablet, 50 MG GTB Q6H PRN for PAIN -06/22, TAB 12/11/18 Simethicone* (Mylicon*) 80 Mg Tab, 80 MG GTB Q6H, TAB 12/11/18 Protein Supplement (Promod) 946 Ml Liquid, 30 ML GTB TID 12/11/18 Multivitamin/Minerals* (Multivitamin w/Min* Liq) 9 Mg/15 Ml Liquid, 30 ML GTB DAILY, ML 12/11/18 Mirtazapine* (Mirtazapine*) 7.5 Mg Tablet, 7.5 MG GTB HS, TAB 12/11/18 Metformin Hcl* (Metformin Hcl*) 500 Mg Tablet, 500 MG GTB WITH BREAKFAST DINNE, #60 TAB 12/11/18 Levothyroxine Sodium* (Levothyroxine Sodium*) 75 Mcg Tablet, 75 MCG GTB BEFORE BREAKFAST, #30 TAB 12/11/18 Gabapentin* (Gabapentin*) 300 Mg Capsule, 300 MG GTB QHS, #60 CAP 12/11/18 Ipratropium-Albuterol (Ipratropium-Albuterol) 0.5-3 Mg/3 Ml Ampul.neb, 3 ML INHALATION Q6 PRN for NEEDED, #30 VIAL 12/11/18 Clonidine Hcl* (Clonidine Hcl*) 0.1 Mg Tab, 0.1 MG GTB Q6H PRN for FOR SBP>160, TAB 12/11/18 Cefepime HCl (Cefepime HCl) 2 Gm Vial, 2 GM IV* BID, VIAL FOR 7 DAYS, END DATE 12/14/18 12/11/18 Ascorbic Acid (Vitamin C) 500 Mg Tab, 500 MG GTB DAILY, TAB 12/11/18 Acetaminophen* (Acetaminophen*) 325 Mg Tablet, 650 MG GTB Q6H PRN for MILD PAIN LEVEL 1-3, #30 TAB AND FEVER>101F 12/11/18 Medications Current Medications IV Flush (NS 3 ml) 3 ml PER PROTOCOL IV ; Start 12/11/18 at 19:00 Ondansetron HCl (Zofran Inj) 4 mg Q6H PRN IV NAUSEA/VOMITING; Start 12/11/18 at 19:00 Acetaminophen (Tylenol Tab) 650 mg Q6H PRN PO .PAIN 1-3 OR TEMP; Start 12/11/18 at 19:00 Acetaminophen/ Hydrocodone Bitart ([place] (5/325)) 1 tab Q6H PRN PO .MOD PAIN 4- 6; Start 12/11/18 at 19:00 Acetaminophen (Tylenol Tab) 650 mg Q6H PRN GTB MILD PAIN LEVEL 1-3; Start 12/11/18 at 19:00 Ascorbic Acid (Vitamin C) 500 mg DAILY GTB Last administered on 12/19/18at 09:20; Admin Dose 500 MG; Start 12/12/18 at 09:00 Clonidine (Catapres) 0.1 mg Q6H PRN GTB FOR SBP>160; Start 12/11/18 at 19:00 Gabapentin (Neurontin) 300 mg QHS GTB Last administered on 12/19/18 21:16; Admin Dose 300 MG; Start 12/11/18 at 21:00 Levothyroxine Sodium (Synthroid) 75 mcg BEFORE BREAKFAST GTB Last administered on 12/20/18 06:50; Admin Dose 75 MCG; Start 12/12/18 at 07:00 Simethicone (Mylicon) 80 mg Q6H GTB Last administered on 12/20/18 06:50; Admin Dose 80 MG; Start 12/11/18 at 19:00 Albuterol/ Ipratropium (Duoneb) 3 ml Q4H RESP THERAPY PRN HHN SHORTNESS OF BREATH; Start 12/11/18 at 19:00 IV Flush (NS 10 ml) 10 ml PRN PRN IV IV PROTOCOL; Start 12/12/18 at 17:00 Morphine Sulfate (morphine) 6 mg Q4H PRN GTB .SEVERE PAIN 7-10; Start 12/13/18 at 12:00 Dextrose/Sodium Chloride 1,000 ml @ 50 mls/hr Q20H IV Last administered on 12/19/18 18:05; Admin Dose 50 MLS/HR; Start 12/13/18 at 12:30 Mupirocin (Bactroban) 1 applic BID TOP Last administered on 12/19/18 21:16; Admin Dose 1 APPLIC; Start 12/13/18 at 21:00; Stop 12/20/18 at 09:01 Midodrine (Proamatine) 10 mg Q8 PO Last administered on 12/20/18 06:50; Admin Dose 10 MG; Start 12/19/18 at 08:30 Apixaban (Eliquis) 10 mg BID PO Last administered on 12/19/18 21:16; Admin Dose 10 MG; Start 12/19/18 at 21:00; Stop 12/26/18 at 20:59 Apixaban (Eliquis) 5 mg BID PO ; Start 12/26/18 at 21:00 Norepinephrine 250 ml @ 1.875 mls/ hr TITRATE IV ; Start 12/19/18 at 12:30 Magnesium Sulfate 50 ml @ 25 mls/hr ONCE ONCE IVPB ; Start 12/20/18 at 08:00; Stop 12/20/18 at 09:59 Allergies: Coded Allergies: benazepril (Unverified Allergy, Unknown, 12/11/18) Past Surgical History Past Surgical Hx: other (unknown orthopedic surgery) Social History Alcohol Use: none Smoking Status: Unknown if ever smoked Drug Use: none, other (Incomplete database) Exam/Review of Systems Exam Vitals Vital Signs Date Temp Pulse Resp B/P (MAP) Pulse Ox O2 O2 Flow FiO2 Time Delivery Rate 12/20/18 5.0 07:45 12/20/18 56 13 101/66 100 Mechanical 05:30 (78) Ventilator 12/20/18 98.4 04:00 12/20/18 28 01:00 Intake and Output 12/19/18 12/19/18 12/20/18 1515:00 23:00 07:00 IntakeIntake Total 1280.566 ml 1276.5 ml 1071 ml OutputOutput Total 775 ml 445 ml 310 ml BalanceBalance 505.566 ml 831.5 ml 761 ml Results Result Diagram: 12/20/18 0438 12/20/18 0438 Results 24hrs Laboratory Tests Test 12/19/18 08:01 12/19/18 15:18 12/20/18 04:38 Activated Partial Thromboplast Time 104.2 *H 55.8 H White Blood Count 10.0 # Red Blood Count 3.03 L Hemoglobin 8.4 L Hematocrit 26.8 L Mean Corpuscular Volume 88.4 Mean Corpuscular Hemoglobin 27.7 L Mean Corpuscular Hemoglobin Concent 31.3 L Red Cell Distribution Width 16.3 H Platelet Count 264 Mean Platelet Volume 11.3 H Immature Granulocytes % 0.900 H Neutrophils % 65.9 Lymphocytes % 18.0 Monocytes % 13.8 H Eosinophils % 0.9 Basophils % 0.5 Nucleated Red Blood Cells % 0.6 H Immature Granulocytes # 0.090 H Neutrophils # 6.6 Lymphocytes # 1.8 Monocytes # 1.4 H Eosinophils # 0.1 Basophils # 0.1 Nucleated Red Blood Cells # 0.1 H Sodium Level 145 H Potassium Level 4.3 Chloride Level 115 H Carbon Dioxide Level 23 Anion Gap 7 Blood Urea Nitrogen 28 H Creatinine 0.62 Est Glomerular Filtrat Rate mL/min > 60 Glucose Level 103 Calcium Level 9.0 Phosphorus Level 3.2 Magnesium Level 1.5 L Medications Medication Current Medications IV Flush (NS 3 ml) 3 ml PER PROTOCOL IV ; Start 12/11/18 at 19:00 Ondansetron HCl (Zofran Inj) 4 mg Q6H PRN IV NAUSEA/VOMITING; Start 12/11/18 at 19:00 Acetaminophen (Tylenol Tab) 650 mg Q6H PRN PO .PAIN 1-3 OR TEMP; Start 12/11/18 at 19:00 Acetaminophen/ Hydrocodone Bitart ([place] (5/325)) 1 tab Q6H PRN PO .MOD PAIN 4- 6; Start 12/11/18 at 19:00 Acetaminophen (Tylenol Tab) 650 mg Q6H PRN GTB MILD PAIN LEVEL 1-3; Start 12/11/18 at 19:00 Ascorbic Acid (Vitamin C) 500 mg DAILY GTB Last administered on 12/19/18at 09:20; Admin Dose 500 MG; Start 12/12/18 at 09:00 Clonidine (Catapres) 0.1 mg Q6H PRN GTB FOR SBP>160; Start 12/11/18 at 19:00 Gabapentin (Neurontin) 300 mg QHS GTB Last administered on 12/19/18at 21:16; Admin Dose 300 MG; Start 12/11/18 at 21:00 Levothyroxine Sodium (Synthroid) 75 mcg BEFORE BREAKFAST GTB Last administered on 12/20/18at 06:50; Admin Dose 75 MCG; Start 12/12/18 at 07:00 Simethicone (Mylicon) 80 mg Q6H GTB Last administered on 12/20/18at 06:50; Admin Dose 80 MG; Start 12/11/18 at 19:00 Albuterol/ Ipratropium (Duoneb) 3 ml Q4H RESP THERAPY PRN HHN SHORTNESS OF BREATH; Start 12/11/18 at 19:00 IV Flush (NS 10 ml) 10 ml PRN PRN IV IV PROTOCOL; Start 12/12/18 at 17:00 Morphine Sulfate (morphine) 6 mg Q4H PRN GTB .SEVERE PAIN 7-10; Start 12/13/18 at 12:00 Dextrose/Sodium Chloride 1,000 ml @ 50 mls/hr Q20H IV Last administered on 12/19/18at 18:05; Admin Dose 50 MLS/HR; Start 12/13/18 at 12:30 Mupirocin (Bactroban) 1 applic BID TOP Last administered on 12/19/18at 21:16; Admin Dose 1 APPLIC; Start 12/13/18 at 21:00; Stop 12/20/18 at 09:01 Midodrine (Proamatine) 10 mg Q8 PO Last administered on 12/20/18at 06:50; Admin Dose 10 MG; Start 12/19/18 at 08:30 Apixaban (Eliquis) 10 mg BID PO Last administered on 12/19/18at 21:16; Admin Dose 10 MG; Start 12/19/18 at 21:00; Stop 12/26/18 at 20:59 Apixaban (Eliquis) 5 mg BID PO ; Start 12/26/18 at 21:00 Norepinephrine 250 ml @ 1.875 mls/ hr TITRATE IV ; Start 12/19/18 at 12:30 Magnesium Sulfate 50 ml @ 25 mls/hr ONCE ONCE IVPB ; Start 12/20/18 at 08:00; Stop 12/20/18 at 09:59 ANGIE HARDING Dec 20, 2018 07:52
[2018-12-20] MEDS ORDERED: MAGNESIUM SULFATE 2 GM/50 ML 50 ML IVPB ONE (08:00)
--- NOTE | 2018-12-20 08:15 | PN ---
DATE: 12/20/2018 SUBJECTIVE: The patient remains critically ill on pressor support. No other acute events noted. No hemoptysis, hematemesis, or hematochezia. The patient had adequate urinary output. OBJECTIVE: VITAL SIGNS: Blood pressure is 101/66, respirations 13, pulse 56, temperature 98.4. HEENT: Head is normocephalic. NECK: Supple. HEART: Regular rate. LUNGS: Show diminished breath sounds at the base. ABDOMEN: Soft, nontender to palpation without rebound or guarding. EXTREMITIES: Negative for clubbing, cyanosis. Positive edema. DERMATOLOGIC: No rashes. MUSCULOSKELETAL: No joint effusion. NEUROLOGIC: No change in exam. MEDICATIONS: Reviewed. LABORATORY DATA: From 12/20/2018 was reviewed. The patient's sodium 145, magnesium 1.5, BUN 28, cre atinine 0.62. White count 10.0, hemoglobin 8.4, platelet count 264. MEDICATIONS: The patient's medications have been reviewed. Cultures have been reviewed. IMAGING STUDIES: Reviewed. ASSESSMENT AND PLAN: 1. Nonoliguric acute kidney injury with unknown baseline creatinine. Etiology of acute kidney injur y is secondary to hemodynamics and sepsis. The patient's renal function has been improving. Continu e current treatment plans, supportive care, renally dose all medications. 2. 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 Etiology is unclear. This is secondary to severe acute tubular necrosis versus primary glomerulopathy. The patient's repeat protein creati nine ratio continues to show nephrotic range proteinuria. At this point, we will continue current tr eatment plan. Continue treating acute kidney injury as stated above. 3. Hypernatremia. Continue free water flushes. Continue hypertonic fluid. 4. Metabolic acidosis secondary to acute kidney injury, improving. 5. Anemia. Continue to monitor hemoglobin and hematocrit levels. 6. Septic shock secondary to urinary tract infection and pneumonia. Continue medical management. C ontinue pressor support. Continue midodrine and IV antibiotics and fluids. 7. Chronic respiratory failure status post trach, currently stable. 8. Acute encephalopathy, etiology is toxic metabolic. 9. Hypothyroidism. Continue Synthroid. 10. Bilateral lower extremity edema, possibly due to underlying deep vein thrombosis. Continue to m onitor. Defer diuretic therapy in the setting of shock. 11. Bilateral lower extremity deep vein thrombosis. Continue medical management. 12. Functional quadriplegia secondary to C spine injury. Dictated By: MARINO CORRAL DO NR/KYLE Conf#: [id number] DID#: [id number] CC: JOSE J DEMPSEY MD; JOANNE FLORES MD; ZACH GROVER MD;*EndCC*
[2018-12-20] MEDS: APIXABAN 5 MG TABLET PO SCH ×2 (09:05→21:04)
[2018-12-20] MEDS: ASCORBIC ACID 500 MG TAB GTB SCH (09:05)
[2018-12-20] MEDS: MUPIROCIN 2% 22 GM OINT TOP SCH (09:06)
--- NOTE | 2018-12-20 09:50 | CONS ---
Assessment/Plan Assessment/Plan Assessment/Plan (Daily) Assessment and recommendations; 1. Patient admitted for severe UTI and sepsis with interval improvement. Patient always off Levophed. 2. History of incomplete quadriplegia. 3. Chronic respiratory failure, maintained on tracheostomy with T-piece. 4. History of neuropathy and hypothyroidism. 5. Anemia. Continue current supportive care. Transfer to medical floor. Consultation Date/Type/Reason Admit Date/Time Dec 11, 2018 at 20:30 Initial Consult Date 12/12/18 Type of Consult Pulmonary/critical care Patient is a 68-year-old lady who was admitted to the hospital transferred from senior care with hypotension as well as altered mental status. Patient has been diagnosed with bilateral pneumonia as well as severe prerenal azotemia with hyponatremia as well as anemia. The patient has improved after being admitted with significant improvement in mental status still requiring low-dose Levophed. The patient has been adequately fluid resuscitated and also getting blood transfusion. By the time I saw her in ICU, patient is on her tracheostomy with Applied and is appropriately responsive. Patient did not appear to be in any distress. Past medical history; 1. History of C-spine surgery with functional quadriplegia. 2. History of G-tube placement. 3. Possibly chronic encephalopathy. 4. Chronic respiratory failure, patient however doing fairly well on tracheostomy with capping. Medications; reviewed. Patient is currently on Levophed 2 mics per minute. Allergies; as outlined above. Social history; noncontributory. Family history; not available. Occupational history; not available. Review of systems; not able to be obtained. General exam; elderly woman, awake and fairly responsive. Currently in no distress. Requesting Provider: JOSE J DEMPSEY Date/Time of Note DATE: 12/20/18 TIME: 09:47 24 HR Interval Summary Free Text/Dictation Patient's condition is stable. Patient now is off pressor support and maintaining stable hemodynamics. General exam; elderly female, awake, currently no distress. Exam/Review of Systems Exam Vitals Vital Signs Date Temp Pulse Resp B/P (MAP) Pulse Ox O2 O2 Flow FiO2 Time Delivery Rate 12/20/18 61 19 82/56 (65) 100 09:00 12/20/18 97.5 Trach 08:00 Collar 12/20/18 5.0 07:45 12/20/18 28 01:00 Intake and Output 12/19/18 12/19/18 12/20/18 1515:00 23:00 07:00 IntakeIntake Total 1280.566 ml 1276.5 ml 1124.75 ml OutputOutput Total 775 ml 445 ml 310 ml BalanceBalance 505.566 ml 831.5 ml 814.75 ml Exam HEENT exam; supple neck, no JVD. No lymphadenopathy. Midline trachea. No thyromegaly. Patient is edentulous. Tracheostomy in place. It has 2 BPs. Chest exam; clear to auscultation. S1-S2 audible, no murmurs. Regular rhythm. Abdomen exam; soft, no organomegaly.. Bowel sounds audible. Extremity exam; peripheral edema. RECYCLING SPECIALIST exam; she is awake, responsive appropriately, exhibiting stable incomplete quadriplegia. Results Result Diagram: 12/20/18 0438 12/20/18 0438 Results 24hrs Laboratory Tests Test 12/19/18 15:18 12/20/18 04:38 Activated Partial Thromboplast Time 55.8 H White Blood Count 10.0 # Red Blood Count 3.03 L Hemoglobin 8.4 L Hematocrit 26.8 L Mean Corpuscular Volume 88.4 Mean Corpuscular Hemoglobin 27.7 L Mean Corpuscular Hemoglobin Concent 31.3 L Red Cell Distribution Width 16.3 H Platelet Count 264 Mean Platelet Volume 11.3 H Immature Granulocytes % 0.900 H Neutrophils % 65.9 Lymphocytes % 18.0 Monocytes % 13.8 H Eosinophils % 0.9 Basophils % 0.5 Nucleated Red Blood Cells % 0.6 H Immature Granulocytes # 0.090 H Neutrophils # 6.6 Lymphocytes # 1.8 Monocytes # 1.4 H Eosinophils # 0.1 Basophils # 0.1 Nucleated Red Blood Cells # 0.1 H Sodium Level 145 H Potassium Level 4.3 Chloride Level 115 H Carbon Dioxide Level 23 Anion Gap 7 Blood Urea Nitrogen 28 H Creatinine 0.62 Est Glomerular Filtrat Rate mL/min > 60 Glucose Level 103 Calcium Level 9.0 Phosphorus Level 3.2 Magnesium Level 1.5 L Medications Medication Current Medications IV Flush (NS 3 ml) 3 ml PER PROTOCOL IV ; Start 12/11/18 at 19:00 Ondansetron HCl (Zofran Inj) 4 mg Q6H PRN IV NAUSEA/VOMITING; Start 12/11/18 at 19:00 Acetaminophen (Tylenol Tab) 650 mg Q6H PRN PO .PAIN 1-3 OR TEMP; Start 12/11/18 at 19:00 Acetaminophen/ Hydrocodone Bitart ([place] (5/325)) 1 tab Q6H PRN PO .MOD PAIN 4- 6; Start 12/11/18 at 19:00 Acetaminophen (Tylenol Tab) 650 mg Q6H PRN GTB MILD PAIN LEVEL 1-3; Start 12/11/18 at 19:00 Ascorbic Acid (Vitamin C) 500 mg DAILY GTB Last administered on 12/20/18 09:05; Admin Dose 500 MG; Start 12/12/18 at 09:00 Clonidine (Catapres) 0.1 mg Q6H PRN GTB FOR SBP>160; Start 12/11/18 at 19:00 Gabapentin (Neurontin) 300 mg QHS GTB Last administered on 12/19/18at 21:16; Admin Dose 300 MG; Start 12/11/18 at 21:00 Levothyroxine Sodium (Synthroid) 75 mcg BEFORE BREAKFAST GTB Last administered on 12/20/18at 06:50; Admin Dose 75 MCG; Start 12/12/18 at 07:00 Simethicone (Mylicon) 80 mg Q6H GTB Last administered on 12/20/18 06:50; Admin Dose 80 MG; Start 12/11/18 at 19:00 Albuterol/ Ipratropium (Duoneb) 3 ml Q4H RESP THERAPY PRN HHN SHORTNESS OF DARI TH; Start 12/11/18 at 19:00 IV Flush (NS 10 ml) 10 ml PRN PRN IV IV PROTOCOL; Start 12/12/18 at 17:00 Morphine Sulfate (morphine) 6 mg Q4H PRN GTB .SEVERE PAIN 7-10; Start 12/13/18 at 12:00 Dextrose/Sodium Chloride 1,000 ml @ 50 mls/hr Q20H IV Last administered on 12/19/18at 18:05; Admin Dose 50 MLS/HR; Start 12/13/18 at 12:30 Midodrine (Proamatine) 10 mg Q8 PO Last administered on 12/20/18at 06:50; Admin Dose 10 MG; Start 12/19/18 at 08:30 Apixaban (Eliquis) 10 mg BID PO Last administered on 12/20/18at 09:05; Admin Dose 10 MG; Start 12/19/18 at 21:00; Stop 12/26/18 at 20:59 Apixaban (Eliquis) 5 mg BID PO ; Start 12/26/18 at 21:00 Norepinephrine 250 ml @ 1.875 mls/ hr TITRATE IV ; Start 12/19/18 at 12:30 Magnesium Sulfate 50 ml @ 25 mls/hr ONCE ONCE IVPB Last administered on 12/20/18at 09:05; Admin Dose 25 MLS/HR; Start 12/20/18 at 08:00; Stop 12/20/18 at 09:59 KARLA MAJOR Dec 20, 2018 09:50
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
--- NOTE | 2018-12-20 14:24 | CONS ---
Assessment/Plan Assessment/Plan Hospital Course (Demo Recall) Patient is alert getting swallow evaluation at bedside she is afebrile and off pressors no fevers overnight she remains on heparin drip WBC today 10 platelets 264 neutrophils 65.9 BUN 28 creatinine 0.62 Microbiology: Blood cultures remain negative, MRSA swab positive sputum culture neg urine culture grew Shannon albicans Antimicrobials: Completed Indwelling: Trach PEG [place], PICC line Physical examination: Chronically ill-appearing elderly woman who is awake in no distress. Head atraumatic normocephalic sclera nonicteric neck is supple tracheostomy present Passy-Matt valve present chest rise symmetrical breath sounds diminished to bases with scattered rhonchi. Heart: S1-S2. Abdomen soft bowel sounds present. Extremities with dependent edema. Assessment: 1. Sepsis, resolving 2. Healthcare associated pneumonia, treated 3. Urinary tract infection 4. MRSA nares colonization 5. Chronic respiratory failure and dysphagia 6. Bilateral lower extremities DVT Plan: Patient is doing much better, completed antibiotics, continue present care, reculture as needed Consultation Date/Type/Reason Admit Date/Time Dec 11, 2018 at 20:30 Initial Consult Date 12/13/18 Type of Consult id Requesting Provider: JOSE J DEMPSEY Date/Time of Note DATE: 12/20/18 TIME: 14:23 Exam/Review of Systems Exam Vitals Vital Signs Date Temp Pulse Resp B/P (MAP) Pulse Ox O2 O2 Flow FiO2 Time Delivery Rate 12/20/18 52 12 114/74 100 13:00 (87) 12/20/18 98.3 Trach 12:00 Collar 12/20/18 5.0 07:45 12/20/18 28 01:00 Intake and Output 12/19/18 12/19/18 12/20/18 1515:00 23:00 07:00 IntakeIntake Total 1280.566 ml 1276.5 ml 1124.75 ml OutputOutput Total 775 ml 445 ml 310 ml BalanceBalance 505.566 ml 831.5 ml 814.75 ml Results Result Diagram: 12/20/18 0438 12/20/18 0438 Results 24hrs Laboratory Tests Test 12/19/18 15:18 12/20/18 04:38 Activated Partial Thromboplast Time 55.8 H White Blood Count 10.0 # Red Blood Count 3.03 L Hemoglobin 8.4 L Hematocrit 26.8 L Mean Corpuscular Volume 88.4 Mean Corpuscular Hemoglobin 27.7 L Mean Corpuscular Hemoglobin Concent 31.3 L Red Cell Distribution Width 16.3 H Platelet Count 264 Mean Platelet Volume 11.3 H Immature Granulocytes % 0.900 H Neutrophils % 65.9 Lymphocytes % 18.0 Monocytes % 13.8 H Eosinophils % 0.9 Basophils % 0.5 Nucleated Red Blood Cells % 0.6 H Immature Granulocytes # 0.090 H Neutrophils # 6.6 Lymphocytes # 1.8 Monocytes # 1.4 H Eosinophils # 0.1 Basophils # 0.1 Nucleated Red Blood Cells # 0.1 H Sodium Level 145 H Potassium Level 4.3 Chloride Level 115 H Carbon Dioxide Level 23 Anion Gap 7 Blood Urea Nitrogen 28 H Creatinine 0.62 Est Glomerular Filtrat Rate mL/min > 60 Glucose Level 103 Calcium Level 9.0 Phosphorus Level 3.2 Magnesium Level 1.5 L Medications Medication Current Medications IV Flush (NS 3 ml) 3 ml PER PROTOCOL IV ; Start 12/11/18 at 19:00 Ondansetron HCl (Zofran Inj) 4 mg Q6H PRN IV NAUSEA/VOMITING; Start 12/11/18 at 19:00 Acetaminophen (Tylenol Tab) 650 mg Q6H PRN PO .PAIN 1-3 OR TEMP; Start 12/11/18 at 19:00 Acetaminophen/ Hydrocodone Bitart ([place] (5/325)) 1 tab Q6H PRN PO .MOD PAIN 4- 6; Start 12/11/18 at 19:00 Acetaminophen (Tylenol Tab) 650 mg Q6H PRN GTB MILD PAIN LEVEL 1-3; Start 12/11/18 at 19:00 Ascorbic Acid (Vitamin C) 500 mg DAILY GTB Last administered on 12/20/18at 09:05; Admin Dose 500 MG; Start 12/12/18 at 09:00 Clonidine (Catapres) 0.1 mg Q6H PRN GTB FOR SBP>160; Start 12/11/18 at 19:00 Gabapentin (Neurontin) 300 mg QHS GTB Last administered on 12/19/18at 21:16; Admin Dose 300 MG; Start 12/11/18 at 21:00 Levothyroxine Sodium (Synthroid) 75 mcg BEFORE BREAKFAST GTB Last administered on 12/20/18at 06:50; Admin Dose 75 MCG; Start 12/12/18 at 07:00 Simethicone (Mylicon) 80 mg Q6H GTB Last administered on 12/20/18at 12:36; Admin Dose 80 MG; Start 12/11/18 at 19:00 Albuterol/ Ipratropium (Duoneb) 3 ml Q4H RESP THERAPY PRN HHN SHORTNESS OF BREATH; Start 12/11/18 at 19:00 IV Flush (NS 10 ml) 10 ml PRN PRN IV IV PROTOCOL; Start 12/12/18 at 17:00 Morphine Sulfate (morphine) 6 mg Q4H PRN GTB .SEVERE PAIN 7-10; Start 12/13/18 at 12:00 Midodrine (Proamatine) 10 mg Q8 PO Last administered on 12/20/18at 12:36; Admin Dose 10 MG; Start 12/19/18 at 08:30 Apixaban (Eliquis) 10 mg BID PO Last administered on 12/20/18at 09:05; Admin Dose 10 MG; Start 12/19/18 at 21:00; Stop 12/26/18 at 20:59 Apixaban (Eliquis) 5 mg BID PO ; Start 12/26/18 at 21:00 Norepinephrine 250 ml @ 1.875 mls/ hr TITRATE IV ; Start 12/19/18 at 12:30 RAMAN NICOLAS NP Dec 20, 2018 14:24
[2018-12-20] MEDS: GABAPENTIN 100 MG CAP GTB SCH (21:04)
[2018-12-20] MEDS: ALBUTEROL/IPRATROPIUM (NEB) 3 ML AMP HHN PRN (21:56)
[2018-12-21] VITALS (18 sets, daily range): BP systolic 79–119; BP diastolic 50–70; PULSE 52–69; RESP 12–18
[2018-12-21] MEDS: MIDODRINE 5 MG TAB PO SCH ×3 (05:16→21:10)
[2018-12-21] MEDS: LEVOTHYROXINE 75 MCG TAB GTB SCH (06:08)
[2018-12-21] MEDS ORDERED: MAGNESIUM SULFATE 2 GM/50 ML 50 ML IVPB ONE (08:00)
--- NOTE | 2018-12-21 08:08 | PN ---
DATE: 12/21/2018 SUBJECTIVE: The patient is currently off pressor support. Urinary output has been adequate. No hem optysis, hematemesis, or hematochezia noted. OBJECTIVE: VITAL SIGNS: Blood pressure is 107/70, respirations 13, pulse 58, temperature 97.7. I's and O's: Reviewed. HEENT: Head is normocephalic. NECK: Shows trach. HEART: Regular rate. LUNGS: Show diminished breath sounds at the base. ABDOMEN: Soft, nontender to palpation without rebound or guarding. EXTREMITIES: Negative for clubbing, cyanosis, no edema. DERMATOLOGIC: No rashes. MUSCULOSKELETAL: No joint effusion. NEUROLOGIC: No change in exam. MEDICATIONS: Reviewed. LABORATORY DATA: Shows a white count 8.5, hemoglobin 7.6, platelet count 244. Sodium 141, potassium 4.6, chloride 115, BUN 26, creatinine 0.60, magnesium is 1.4. ASSESSMENT AND PLAN: 1. Nonoliguric acute kidney injury with unknown baseline creatinine. Etiology of acute kidney injur y is secondary to hemodynamics and sepsis. Renal function has improved with supportive care. Contin ue current treatment plan. Renally dose all medicines and avoid nephrotoxins. 2. 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 Etiology is unclear, possibly secondary to severe acute tubular necrosis. At this point, we would continue current treatment plan as stated above. We would consider repeating UA, urine protein creatinine ratio in 1 to 2 weeks to see if pro teinuria has improved. We will consider MICHAELA inhibitor once hemodynamics are stable. 3. Hypernatremia. Continue free water flushes. 4. Metabolic acidosis secondary to acute kidney injury, improved. 5. Anemia. Continue to monitor hemoglobin and hematocrit levels. 6. Septic shock secondary to urinary tract infection and pneumonia. The patient is currently on pre ssor support. Continue midodrine. Continue IV antibiotics. 7. Chronic respiratory failure, status post tracheostomy, currently stable. Continue to monitor. 8. Acute encephalopathy. Etiology is toxic metabolic. 9. Hypothyroidism. Continue Synthroid. 10. Bilateral lower extremity edema, possibly from underlying deep vein thrombosis. Continue to mon itor. Consider diuretic therapy if the patient remains hemodynamically stable. 11. Bilateral deep venous thrombosis. Continue medical management. 12. Functional quadriplegia secondary to C spine injury. Dictated By: MARINO GARDNER/KYLE Conf#: [id number] DID#: [id number] CC: JOSE J DEMPSEY MD; JOANNE FLORES MD; ZACH GROVER MD;*[facility]*
[2018-12-21] MEDS: APIXABAN 5 MG TABLET PO SCH ×2 (08:24→21:10)
[2018-12-21] MEDS: ASCORBIC ACID 500 MG TAB GTB SCH (08:24)
--- NOTE | 2018-12-21 09:56 | CONS ---
Assessment/Plan Assessment/Plan Assessment/Plan (Daily) Assessment and recommendations; 1. Patient admitted with UTI and sepsis with significant interval clinical improvement. 2. Resolution of hypotension. 3. History of incomplete quadriplegia. 4. Anemia and thrombocytopenia. 5. Bilateral extensive lower extremity DVT. Continue current supportive care. Transfer to medical floor. Consider discharge to custodial as well. Consultation Date/Type/Reason Admit Date/Time Dec 11, 2018 at 20:30 Initial Consult Date 12/12/18 Type of Consult Pulmonary/critical care Patient is a 68-year-old lady who was admitted to the hospital transferred from custodial with hypotension as well as altered mental status. Patient has been diagnosed with bilateral pneumonia as well as severe prerenal azotemia with hyponatremia as well as anemia. The patient has improved after being admitted with significant improvement in mental status still requiring low-dose Levophed. The patient has been adequately fluid resuscitated and also getting blood transfusion. By the time I saw her in ICU, patient is on her tracheostomy with Applied and is appropriately responsive. Patient did not appear to be in any distress. Past medical history; 1. History of C-spine surgery with functional quadriplegia. 2. History of G-tube placement. 3. Possibly chronic encephalopathy. 4. Chronic respiratory failure, patient however doing fairly well on tracheostomy with capping. Medications; reviewed. Patient is currently on Levophed 2 mics per minute. Allergies; as outlined above. Social history; noncontributory. Family history; not available. Occupational history; not available. Review of systems; not able to be obtained. General exam; elderly woman, awake and fairly responsive. Currently in no distress. Requesting Provider: JOSE J DEMPSEY Date/Time of Note DATE: 12/21/18 TIME: 09:54 24 HR Interval Summary Free Text/Dictation Patient's condition is improving. Has remained hemodynamically stable of pr essor support. Mental status also is markedly improved. General exam; elderly female, awake and alert. On T-piece via tracheostomy. Able to talk. Currently in no distress. Exam/Review of Systems Exam Vitals Vital Signs Date Temp Pulse Resp B/P (MAP) Pulse Ox O2 O2 Flow FiO2 Time Delivery Rate 12/21/18 58 13 107/70 100 Trach 07:00 (82) Collar 12/21/18 5.0 28 04:12 12/21/18 97.7 04:00 Intake and Output 12/20/18 12/20/18 12/21/18 1515:00 23:00 07:00 IntakeIntake Total 1020 ml 880 ml 980 ml OutputOutput Total 400 ml 400 ml 400 ml BalanceBalance 620 ml 480 ml 580 ml Exam H EENT exam; supple neck, no JVD. No lymphadenopathy. Midline trachea. No thyromegaly. Tracheostomy in place. Patient has fair dentition. No neck masses. Chest exam; diminished but clear breath sounds. S1-S2 audible, no murmurs. Regular rhythm. Abdomen exam; soft, no organomegaly. G-tube in place. Bowel sounds audible. Extremity exam; lymphedema in lower extremities. [employer] exam; patient is awake, able to talk, moving upper extremities but exhibiting paraplegia. Results Result Diagram: 12/21/187 12/21/187 Results 24hrs Laboratory Tests Test 12/21/18 04:47 White Blood Count 8.5 Red Blood Count 2.72 L Hemoglobin 7.6 L Hematocrit 24.6 L Mean Corpuscular Volume 90.4 Mean Corpuscular Hemoglobin 27.9 L Mean Corpuscular Hemoglobin Concent 30.9 L Red Cell Distribution Width 16.6 H Platelet Count 244 Mean Platelet Volume 11.3 H Immature Granulocytes % 0.700 H Neutrophils % 69.6 Lymphocytes % 17.9 Monocytes % 10.5 Eosinophils % 1.1 Basophils % 0.2 Nucleated Red Blood Cells % 0.5 H Immature Granulocytes # 0.060 H Neutrophils # 5.9 Lymphocytes # 1.5 Monocytes # 0.9 Eosinophils # 0.1 Basophils # 0.0 Nucleated Red Blood Cells # 0.0 Sodium Level 141 Potassium Level 4.6 Chloride Level 115 H Carbon Dioxide Level 25 Anion Gap 1 L Blood Urea Nitrogen 26 H Creatinine 0.60 Est Glomerular Filtrat Rate mL/min > 60 Glucose Level 100 Calcium Level 8.8 Phosphorus Level 3.4 Magnesium Level 1.4 L Medications Medication Current Medications IV Flush (NS 3 ml) 3 ml PER PROTOCOL IV ; Start 12/11/18 at 19:00 Ondansetron HCl (Zofran Inj) 4 mg Q6H PRN IV NAUSEA/VOMITING; Start 12/11/18 at 19:00 Acetaminophen (Tylenol Tab) 650 mg Q6H PRN PO .PAIN 1-3 OR TEMP; Start 12/11/18 at 19:00 Acetaminophen/ Hydrocodone Bitart ([place] (5/325)) 1 tab Q6H PRN PO .MOD PAIN 4- 6; Start 12/11/18 at 19:00 Acetaminophen (Tylenol Tab) 650 mg Q6H PRN GTB MILD PAIN LEVEL 1-3; Start 12/11/18 at 19:00 Ascorbic Acid (Vitamin C) 500 mg DAILY GTB Last administered on 12/21/18at 08:24; Admin Dose 500 MG; Start 12/12/18 at 09:00 Clonidine (Catapres) 0.1 mg Q6H PRN GTB FOR SBP>160; Start 12/11/18 at 19:00 Levothyroxine Sodium (Synthroid) 75 mcg BEFORE BREAKFAST GTB Last administered on 12/21/18at 06:08; Admin Dose 75 MCG; Start 12/12/18 at 07:00 Simethicone (Mylicon) 80 mg Q6H GTB Last administered on 12/21/18at 06:07; Admin Dose 80 MG; Start 12/11/18 at 19:00 Albuterol/ Ipratropium (Duoneb) 3 ml Q4H RESP THERAPY PRN HHN SHORTNESS OF BREATH Last administered on 12/20/18at 21:56; Admin Dose 3 ML; Start 12/11/18 at 19:00 IV Flush (NS 10 ml) 10 ml PRN PRN IV IV PROTOCOL; Start 12/12/18 at 17:00 Morphine Sulfate (morphine) 6 mg Q4H PRN GTB .SEVERE PAIN 7-10; Start 12/13/18 at 12:00 Midodrine (Proamatine) 10 mg Q8 PO Last administered on 12/21/18at 05:16; Admin Dose 10 MG; Start 12/19/18 at 08:30 Apixaban (Eliquis) 10 mg BID PO Last administered on 12/21/18at 08:24; Admin Dose 10 MG; Start 12/19/18 at 21:00; Stop 12/26/18 at 20:59 Apixaban (Eliquis) 5 mg BID PO ; Start 12/26/18 at 21:00 Norepinephrine 250 ml @ 1.875 mls/ hr TITRATE IV ; Start 12/19/18 at 12:30 Gabapentin (Neurontin) 100 mg QHS GTB Last administered on 12/20/18at 21:04; Admi n Dose 100 MG; Start 12/20/18 at 21:00 Magnesium Sulfate 50 ml @ 25 mls/hr ONCE ONCE IVPB Last administered on 12/21/18at 08:24; Admin Dose 25 MLS/HR; Start 12/21/18 at 08:00; Stop 12/21/18 at 09:59 KARLA MAJOR Dec 21, 2018 09:56
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
--- NOTE | 2018-12-21 14:02 | CONS ---
Assessment/Plan Assessment/Plan Hospital Course (Demo Recall) Alert looks comfortable, off levo fed drip, no fevers Microbiology: Blood cultures remain negative, MRSA swab positive sputum culture neg urine culture grew Shannon albicans Antimicrobials: Completed Indwelling: Trach PEG [place], PICC line Physical examination: Chronically ill-appearing elderly woman who is awake in no distress. Head atraumatic normocephalic sclera nonicteric neck is supple tracheostomy present Pass[place]on valve present chest rise symmetrical breath sounds diminished to bases with scattered rhonchi. Heart: S1-S2. Abdomen soft bowel sounds present. Extremities with dependent edema. Assessment: 1. S/p sepsis 2. Healthcare associated pneumonia, treated 3. Status post urinary tract infection 4. MRSA nares colonization 5. Chronic respiratory failure and dysphagia 6. Bilateral lower extremities DVT Plan: Stable, completed antibiotics, continue present care, plan for telemetry Consultation Date/Type/Reason Admit Date/Time Dec 11, 2018 at 20:30 Initial Consult Date 12/13/18 Type of Consult id Requesting Provider: JOSE J DEMPSEY Date/Time of Note DATE: 12/21/18 TIME: 14:01 Exam/Review of Systems Exam Vitals Vital Signs Date Temp Pulse Resp B/P (MAP) Pulse Ox O2 O2 Flow FiO2 Time Delivery Rate 12/21/18 65 12:00 12/21/18 17 80/52 (61) 99 T Tube 11:00 12/21/18 98.0 08:00 12/21/18 5.0 28 04:12 Intake and Output 12/20/18 12/20/18 12/21/18 1515:00 23:00 07:00 IntakeIntake Total 1020 ml 880 ml 980 ml OutputOutput Total 400 ml 400 ml 400 ml BalanceBalance 620 ml 480 ml 580 ml Results Result Diagram: 12/21/18 0447 12/21/18 0447 Results 24hrs Laboratory Tests Test 12/21/18 04:47 White Blood Count 8.5 Red Blood Count 2.72 L Hemoglobin 7.6 L Hematocrit 24.6 L Mean Corpuscular Volume 90.4 Mean Corpuscular Hemoglobin 27.9 L Mean Corpuscular Hemoglobin Concent 30.9 L Red Cell Distribution Width 16.6 H Platelet Count 244 Mean Platelet Volume 11.3 H Immature Granulocytes % 0.700 H Neutrophils % 69.6 Lymphocytes % 17.9 Monocytes % 10.5 Eosinophils % 1.1 Basophils % 0.2 Nucleated Red Blood Cells % 0.5 H Immature Granulocytes # 0.060 H Neutrophils # 5.9 Lymphocytes # 1.5 Monocytes # 0.9 Eosinophils # 0.1 Basophils # 0.0 Nucleated Red Blood Cells # 0.0 Sodium Level 141 Potassium Level 4.6 Chloride Level 115 H Carbon Dioxide Level 25 Anion Gap 1 L Blood Urea Nitrogen 26 H Creatinine 0.60 Est Glomerular Filtrat Rate mL/min > 60 Glucose Level 100 Calcium Level 8.8 Phosphorus Level 3.4 Magnesium Level 1.4 L Medications Medication Current Medications IV Flush (NS 3 ml) 3 ml PER PROTOCOL IV ; Start 12/11/18 at 19:00 Ondansetron HCl (Zofran Inj) 4 mg Q6H PRN IV NAUSEA/VOMITING; Start 12/11/18 at 19:00 Acetaminophen (Tylenol Tab) 650 mg Q6H PRN PO .PAIN 1-3 OR TEMP; Start 12/11/18 at 19:00 Acetaminophen/ Hydrocodone Bitart ([place] (5/325)) 1 tab Q6H PRN PO .MOD PAIN 4- 6; Start 12/11/18 at 19:00 Acetaminophen (Tylenol Tab) 650 mg Q6H PRN GTB MILD PAIN LEVEL 1-3; Start 12/11/18 at 19:00 Ascorbic Acid (Vitamin C) 500 mg DAILY GTB Last administered on 12/21/18at 08:24; Admin Dose 500 MG; Start 12/12/18 at 09:00 Clonidine (Catapres) 0.1 mg Q6H PRN GTB FOR SBP>160; Start 12/11/18 at 19:00 Levothyroxine Sodium (Synthroid) 75 mcg BEFORE BREAKFAST GTB Last administered on 12/21/18at 06:08; Admin Dose 75 MCG; Start 12/12/18 at 07:00 Simethicone (Mylicon) 80 mg Q6H GTB Last administered on 12/21/18at 13:59; Admin Dose 80 MG; Start 12/11/18 at 19:00 Albuterol/ Ipratropium (Duoneb) 3 ml Q4H RESP THERAPY PRN HHN SHORTNESS OF BREATH Last administered on 12/20/18at 21:56; Admin Dose 3 ML; Start 12/11/18 at 19:00 IV Flush (NS 10 ml) 10 ml PRN PRN IV IV PROTOCOL; Start 12/12/18 at 17:00 Morphine Sulfate (morphine) 6 mg Q4H PRN GTB .SEVERE PAIN 7-10; Start 12/13/18 at 12:00 Midodrine (Proamatine) 10 mg Q8 PO Last administered on 12/21/18at 13:59; Admin Dose 10 MG; Start 12/19/18 at 08:30 Apixaban (Eliquis) 10 mg BID PO Last administered on 12/21/18at 08:24; Admin Dose 10 MG; Start 12/19/18 at 21:00; Stop 12/26/18 at 20:59 Apixaban (Eliquis) 5 mg BID PO ; Start 12/26/18 at 21:00 Gabapentin (Neurontin) 100 mg QHS GTB Last administered on 12/20/18at 21:04; Admin Dose 100 MG; Start 12/20/18 at 21:00 RAMAN NICOLAS NP Dec 21, 2018 14:01
[2018-12-21] MEDS: GABAPENTIN 100 MG CAP GTB SCH (21:09)
[2018-12-22] VITALS (9 sets, daily range): BP systolic 88–127; BP diastolic 59–78; PULSE 53–88; RESP 16–20
[2018-12-22] MEDS: ALBUTEROL/IPRATROPIUM (NEB) 3 ML AMP HHN PRN (02:22)
[2018-12-22] MEDS: MIDODRINE 5 MG TAB PO SCH ×2 (06:39→13:33)
[2018-12-22] MEDS: LEVOTHYROXINE 75 MCG TAB GTB SCH (06:39)
--- NOTE | 2018-12-22 08:08 | CONS ---
Consultation Date/Type/Reason Admit Date/Time Dec 11, 2018 at 20:30 Initial Consult Date 12/13/18 Requesting Provider: JOSE J DEMPSEY Date/Time of Note DATE: 12/22/18 TIME: 08:06 24 HR Interval Summary Free Text/Dictation UTI Incomplete Quad. AMS PNA Doing well will be transferred to med surg. OK t move back to SNF Consider POLST Exam/Review of Systems Exam Vitals Vital Signs Date Temp Pulse Resp B/P (MAP) Pulse Ox O2 O2 Flow FiO2 Time Delivery Rate 12/22/18 98.3 88 17 88/59 (69) 93 04:32 12/22/18 Aerosol 5.0 28 02:22 T Tube Intake and Output 12/21/18 12/21/18 12/22/18 1515:00 23:00 07:00 IntakeIntake Total 870 ml OutputOutput Total 695 ml 500 ml 850 ml BalanceBalance 175 ml -500 ml -850 ml Constitutional: non-verbal, frail Respiratory: clear to auscultation, normal air movement; No congested cough, No crackles/rales, No diminished breath sounds, No intercostal retraction, No labored breathing, No respirations, No tactile fremitus, No wheezing, No other Cardiovascular: regular rate and rhythm, nl pulses; No bruits, No diastolic murmur, No edema, No gallop, No irregular rhythm, No jugular venous distention (JVD), No murmurs/extra sounds, No rub, No systolic murmur, No S3, No S4, No other Neurological: DIRECTOR COMPLIANCE II-XII intact, lethargic Results Result Diagram: 12/21/18 0447 12/21/18 0447 Medications Medication Current Medications IV Flush (NS 3 ml) 3 ml PER PROTOCOL IV ; Start 12/11/18 at 19:00 Ondansetron HCl (Zofran Inj) 4 mg Q6H PRN IV NAUSEA/VOMITING; Start 12/11/18 at 19:00 Acetaminophen (Tylenol Tab) 650 mg Q6H PRN PO .PAIN 1-3 OR TEMP; Start 12/11/18 at 19:00 Acetaminophen/ Hydrocodone Bitart ([place] (5/325)) 1 tab Q6H PRN PO .MOD PAIN 4- 6; Start 12/11/18 at 19:00 Acetaminophen (Tylenol Tab) 650 mg Q6H PRN GTB MILD PAIN LEVEL 1-3; Start 12/11/18 at 19:00 Ascorbic Acid (Vitamin C) 500 mg DAILY GTB Last administered on 12/21/18at 08:24; Admin Dose 500 MG; Start 12/12/18 at 09:00 Clonidine (Catapres) 0.1 mg Q6H PRN GTB FOR SBP>160; Start 12/11/18 at 19:00 Levothyroxine Sodium (Synthroid) 75 mcg BEFORE BREAKFAST GTB Last administered on 12/22/18 06:39; Admin Dose 75 MCG; Start 12/12/18 at 07:00 Simethicone (Mylicon) 80 mg Q6H GTB Last administered on 12/22/18 06:39; Admin Dose 80 MG; Start 12/11/18 at 19:00 Albuterol/ Ipratropium (Duoneb) 3 ml Q4H RESP THERAPY PRN HHN SHORTNESS OF BREATH Last administered on 12/22/18at 02:22; Admin Dose 3 ML; Start 12/11/18 at 19:00 IV Flush (NS 10 ml) 10 ml PRN PRN IV IV PROTOCOL; Start 12/12/18 at 17:00 Morphine Sulfate (morphine) 6 mg Q4H PRN GTB .SEVERE PAIN 7-10; Start 12/13/18 at 12:00 Midodrine (Proamatine) 10 mg Q8 PO Last administered on 12/22/18at 06:39; Admin Dose 10 MG; Start 12/19/18 at 08:30 Apixaban (Eliquis) 10 mg BID PO Last administered on 12/21/18at 21:10; Admin Dose 10 MG; Start 12/19/18 at 21:00; Stop 12/26/18 at 20:59 Apixaban (Eliquis) 5 mg BID PO ; Start 12/26/18 at 21:00 Gabapentin (Neurontin) 100 mg QHS GTB Last administered on 12/21/18at 21:09; Admin Dose 100 MG; Start 12/20/18 at 21:00 ANGIE HARDING Dec 22, 2018 08:08
[2018-12-22] MEDS: ASCORBIC ACID 500 MG TAB GTB SCH (08:34)
[2018-12-22] MEDS: APIXABAN 5 MG TABLET PO SCH (08:34)
--- NOTE | 2018-12-22 08:58 | PN ---
DATE: 12/22/2018 SUBJECTIVE: The patient is stable, no events overnight. OBJECTIVE: VITAL SIGNS: Blood pressure is 127/78, pulse 60, respirations 20, temperature 98.9. HEENT: Head is normocephalic. NECK: Supple. HEART: Regular rate. LUNGS: Show diminished breath sounds at the base. ABDOMEN: Soft, nontender to palpation without rebound or guarding. EXTREMITIES: Negative for clubbing, cyanosis. Positive edema. DERMATOLOGIC: No rashes. MUSCULOSKELETAL: No joint effusion. NEUROLOGIC: No change in exam. MEDICATIONS: The patient's medications have been reviewed. LABORATORY DATA: From 12/21/2018 was reviewed. Laboratory data from 12/22/2018 is pending. ASSESSMENT AND PLAN: 1. Nonoliguric acute kidney injury with unknown baseline creatinine. Etiology is secondary to hemod ynamic sepsis. Renal function is improved. Continue current treatment plan, supportive care, renall y dose all medication. 2. 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 Etiology is unclear, possibly due to se berry acute tubular necrosis. Questionable primary glomerulopathy. The patient is not a candidate fo r renal biopsy as she is in chronic respiratory failure. Plan is to repeat a urinalysis, urine prote in creatinine ratio 1 to 2 weeks if proteinuria is improved. We will consider MICHAELA inhibitor if the p atient is hemodynamically more stable. 3. Hypernatremia, improved. Continue free water flushes. 4. Metabolic acidosis, improving. 5. Anemia. Monitor hemoglobin and hematocrit levels dose. 6. Septic shock secondary to urinary tract infection, pneumonia. The patient is currently admitted here and will continue. Continue antibiotic therapy. 7. Chronic respiratory failure, status post trach. Continue to monitor on trach mask. 8. Acute encephalopathy, etiology is toxic metabolic. 9. Hypothyroidism. Continue Synthroid. 10. Bilateral lower extremity edema, likely from dependent edema and DVT. Would continue medical ma nagement, defer diuretic therapy at this time as the patient is hypotensive. 11. Status post functional quadriplegia secondary to C-spine injury. 12. History of bilateral lower extremity deep venous thrombosis. 13. Hypomagnesemia. Continue to monitor and replete as needed. Dictated By: MARINO GARDNER/KYLE Conf#: [id number] DID#: [id number]
--- NOTE | 2018-12-22 09:31 | CONS ---
Assessment/Plan Assessment/Plan Assessment/Plan (Daily) Assessment and recommendations; 1. Patient admitted for severe sepsis from UTI with marked overall interval improvement. Hypotension has resolved. 2. Other comorbidities include history of incomplete quadriplegia, patient now maintained on T-piece. 3. History of diabetes, stable anemia. Peripheral neuropathy., 4. Bilateral lower extremity DVT. Continue current supportive care. Maintain anticoagulation indefinitely. Consider discharge. Consultation Date/Type/Reason Admit Date/Time Dec 11, 2018 at 20:30 Initial Consult Date 12/12/18 Type of Consult Pulmonary/critical care Patient is a 68-year-old lady who was [facility] the [facility] with [facility]ension as well as altered mental status. Patient has been diagnosed with bilateral pneumonia as well as severe prerenal azotemia with hyponatremia as well as anemia. The patient has improved after being admitted with significant improvement in mental status still requiring low-dose Levophed. The patient has been adequately fluid resuscitated and also getting blood transfusion. By the time I saw her in ICU, patient is on her tracheostomy with Applied and is appropriately responsive. Patient did not appear to be in any distress. Past medical history; 1. History of C-spine surgery with functional quadriplegia. 2. History of G-tube placement. 3. Possibly chronic encephalopathy. 4. Chronic respiratory failure, patient however doing fairly well on tracheostomy with capping. Medications; reviewed. Patient is currently on Levophed 2 mics per minute. Allergies; as outlined above. Social history; noncontributory. Family history; not available. Occupational history; not available. Review of systems; not able to be obtained. General exam; elderly woman, awake and fairly responsive. Currently in no distress. Requesting Provider: JOSE J DEMPSEY Date/Time of Note DATE: 12/22/18 TIME: 09:29 24 HR Interval Summary Free Text/Dictation Patient's condition is stable. Has been transferred out of ICU. Remains hemodynamically stable. General exam; elderly female, on T-piece via tracheostomy. Awake and alert. Patient is appropriately responsive. Currently in no distress. Exam/Review of Systems Exam Vitals Vital Signs Date Temp Pulse Resp B/P (MAP) Pulse Ox O2 O2 Flow FiO2 Time Delivery Rate 12/22/18 53 08:48 12/22/18 98.9 20 127/78 100 08:12 (94) 12/22/18 Aerosol 5.0 28 02:22 T Tube Intake and Output 12/21/18 12/21/18 12/22/18 1414:59 22:59 06:59 IntakeIntake Total 930 ml OutputOutput Total 745 ml 500 ml 850 ml BalanceBalance 185 ml -500 ml -850 ml Exam H EENT exam; supple neck, no JVD. No lymphadenopathy. Midline trachea. No thyromegaly. Tracheostomy place. S2 T piece. Patient is edentulous. Chest exam; clear to auscultation. S1-S2 audible, no murmurs. Regular rhythm. Abdomen exam; soft, no organomegaly. G-tube in place. Bowel sounds audible. Extremity exam; peripheral edema clubbing. 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 Results Result Diagram: 12/22/18 0748 12/21/18 0447 Results 24hrs Laboratory Tests Test 12/22/18 07:48 White Blood Count 7.3 Red Blood Count 2.92 L Hemoglobin 8.1 L Hematocrit 26.0 L Mean Corpuscular Volume 89.0 Mean Corpuscular Hemoglobin 27.7 L Mean Corpuscular Hemoglobin Concent 31.2 L Red Cell Distribution Width 16.6 H Platelet Count 271 Mean Platelet Volume 11.7 H Immature Granulocytes % 0.400 Neutrophils % 65.7 Lymphocytes % 18.4 Monocytes % 13.8 H Eosinophils % 1.4 Basophils % 0.3 Nucleated Red Blood Cells % 0.4 H Immature Granulocytes # 0.030 Neutrophils # 4.8 Lymphocytes # 1.3 Monocytes # 1.0 H Eosinophils # 0.1 Basophils # 0.0 Nucleated Red Blood Cells # 0.0 Medications Medication Current Medications IV Flush (NS 3 ml) 3 ml PER PROTOCOL IV ; Start 12/11/18 at 19:00 Ondansetron HCl (Zofran Inj) 4 mg Q6H PRN IV NAUSEA/VOMITING; Start 12/11/18 at 19:00 Acetaminophen (Tylenol Tab) 650 mg Q6H PRN PO .PAIN 1-3 OR TEMP; Start 12/11/18 at 19:00 Acetaminophen/ Hydrocodone Bitart ([place] (5/325)) 1 tab Q6H PRN PO .MOD PAIN 4- 6; Start 12/11/18 at 19:00 Acetaminophen (Tylenol Tab) 650 mg Q6H PRN GTB MILD PAIN LEVEL 1-3; Start 12/11/18 at 19:00 Ascorbic Acid (Vitamin C) 500 mg DAILY GTB Last administered on 12/22/18 08:34; Admin Dose 500 MG; Start 12/12/18 at 09:00 Clonidine (Catapres) 0.1 mg Q6H PRN GTB FOR SBP>160; Start 12/11/18 at 19:00 Levothyroxine Sodium (Synthroid) 75 mcg BEFORE BREAKFAST GTB Last administered on 12/22/18 06:39; Admin Dose 75 MCG; Start 12/12/18 at 07:00 Simethicone (Mylicon) 80 mg Q6H GTB Last administered on 12/22/18 06:39; Admin Dose 80 MG; Start 12/11/18 at 19:00 Albuterol/ Ipratropium (Duoneb) 3 ml Q4H RESP THERAPY PRN HHN SHORTNESS OF BREATH Last administered on 12/22/18at 02:22; Admin Dose 3 ML; Start 12/11/18 at 19:00 IV Flush (NS 10 ml) 10 ml PRN PRN IV IV PROTOCOL; Start 12/12/18 at 17:00 Morphine Sulfate (morphine) 6 mg Q4H PRN GTB .SEVERE PAIN 7-10; Start 12/13/18 at 12:00 Midodrine (Proamatine) 10 mg Q8 PO Last administered on 12/22/18 06:39; Admin Dose 10 MG; Start 12/19/18 at 08:30 Apixaban (Eliquis) 10 mg BID PO Last administered on 12/22/18 08:34; Admin Dose 10 MG; Start 12/19/18 at 21:00; Stop 12/26/18 at 20:59 Apixaban (Eliquis) 5 mg BID PO ; Start 12/26/18 at 21:00 Gabapentin (Neurontin) 100 mg QHS GTB Last administered on 12/21/18 21:09; Admin Dose 100 MG; Start 12/20/18 at 21:00 KARLA MAJOR Dec 22, 2018 09:31
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
--- NOTE | 2018-12-22 13:19 | CONS ---
Assessment/Plan Assessment/Plan Hospital Course (Demo Recall) Sleeping, looks comfortable, no fevers Microbiology: Blood cultures remain negative, MRSA swab positive sputum culture neg urine culture grew Shannon albicans Antimicrobials: Completed Indwelling: Trach PEG [place], PICC line Physical examination: Chronically ill-appearing elderly woman who is awake in no distress. Head atraumatic normocephalic sclera nonicteric neck is supple tracheostomy present [place] valve present chest rise symmetrical breath sounds diminished to bases with scattered rhonchi. Heart: S1-S2. Abdomen soft bowel sounds present. Extremities with dependent edema. Assessment: 1. S/p sepsis 2. Healthcare associated pneumonia, treated 3. Status post urinary tract infection 4. MRSA nares colonization 5. Chronic respiratory failure and dysphagia 6. Bilateral lower extremities DVT Plan: Remains stable, completed antibiotics, continue present care, aspiration precautions Consultation Date/Type/Reason Admit Date/Time Dec 11, 2018 at 20:30 Initial Consult Date 12/13/18 Type of Consult id Requesting Provider: JOSE J DEMPSEY Date/Time of Note DATE: 12/22/18 TIME: 13:18 Exam/Review of Systems Exam Vitals Vital Signs Date Temp Pulse Resp B/P (MAP) Pulse Ox O2 O2 Flow FiO2 Time Delivery Rate 12/22/18 98.0 58 18 127/78 93 11:49 (94) 12/22/18 5.0 28 10:03 12/22/18 Aerosol 10:03 Mask Intake and Output 12/21/18 12/21/18 12/22/18 1515:00 23:00 07:00 IntakeIntake Total 870 ml OutputOutput Total 695 ml 500 ml 850 ml BalanceBalance 175 ml -500 ml -850 ml Results Result Diagram: 12/22/18 0748 12/22/18 0748 Results 24hrs Laboratory Tests Test 12/22/18 07:48 White Blood Count 7.3 Red Blood Count 2.92 L Hemoglobin 8.1 L Hematocrit 26.0 L Mean Corpuscular Volume 89.0 Mean Corpuscular Hemoglobin 27.7 L Mean Corpuscular Hemoglobin Concent 31.2 L Red Cell Distribution Width 16.6 H Platelet Count 271 Mean Platelet Volume 11.7 H Immature Granulocytes % 0.400 Neutrophils % 65.7 Lymphocytes % 18.4 Monocytes % 13.8 H Eosinophils % 1.4 Basophils % 0.3 Nucleated Red Blood Cells % 0.4 H Immature Granulocytes # 0.030 Neutrophils # 4.8 Lymphocytes # 1.3 Monocytes # 1.0 H Eosinophils # 0.1 Basophils # 0.0 Nucleated Red Blood Cells # 0.0 Sodium Level 142 Potassium Level 4.9 Chloride Level 113 H Carbon Dioxide Level 24 Anion Gap 5 Blood Urea Nitrogen 25 H Creatinine 0.59 Est Glomerular Filtrat Rate mL/min > 60 Glucose Level 99 Calcium Level 9.2 Phosphorus Level 3.4 Magnesium Level 1.7 Medications Medication Current Medications IV Flush (NS 3 ml) 3 ml PER PROTOCOL IV ; Start 12/11/18 at 19:00 Ondansetron HCl (Zofran Inj) 4 mg Q6H PRN IV NAUSEA/VOMITING; Start 12/11/18 at 19:00 Acetaminophen (Tylenol Tab) 650 mg Q6H PRN PO .PAIN 1-3 OR TEMP; Start 12/11/18 at 19:00 Acetaminophen/ Hydrocodone Bitart ([place] (5/325)) 1 tab Q6H PRN PO .MOD PAIN 4- 6; Start 12/11/18 at 19:00 Acetaminophen (Tylenol Tab) 650 mg Q6H PRN GTB MILD PAIN LEVEL 1-3; Start 12/11/18 at 19:00 Ascorbic Acid (Vitamin C) 500 mg DAILY GTB Last administered on 12/22/18at 08:34; Admin Dose 500 MG; Start 12/12/18 at 09:00 Clonidine (Catapres) 0.1 mg Q6H PRN GTB FOR SBP>160; Start 12/11/18 at 19:00 Levothyroxine Sodium (Synthroid) 75 mcg BEFORE BREAKFAST GTB Last administered on 12/22/18at 06:39; Admin Dose 75 MCG; Start 12/12/18 at 07:00 Simethicone (Mylicon) 80 mg Q6H GTB Last administered on 12/22/18at 06:39; Admin Dose 80 MG; Start 12/11/18 at 19:00 Albuterol/ Ipratropium (Duoneb) 3 ml Q4H RESP THERAPY PRN HHN SHORTNESS OF BREATH Last administered on 12/22/18at 02:22; Admin Dose 3 ML; Start 12/11/18 at 19:00 IV Flush (NS 10 ml) 10 ml PRN PRN IV IV PROTOCOL; Start 12/12/18 at 17:00 Morphine Sulfate (morphine) 6 mg Q4H PRN GTB .SEVERE PAIN 7-10; Start 12/13/18 at 12:00 Midodrine (Proamatine) 10 mg Q8 PO Last administered on 12/22/18at 06:39; Admin Dose 10 MG; Start 12/19/18 at 08:30 Apixaban (Eliquis) 10 mg BID PO Last administered on 12/22/18at 08:34; Admin Dose 10 MG; Start 12/19/18 at 21:00; Stop 12/26/18 at 20:59 Apixaban (Eliquis) 5 mg BID PO ; Start 12/26/18 at 21:00 Gabapentin (Neurontin) 100 mg QHS GTB Last administered on 12/21/18at 21:09; Admin Dose 100 MG; Start 12/20/18 at 21:00 RAMAN NICOLAS NP Dec 22, 2018 13:19
[2018-12-22] MEDS ORDERED: GABA100C14 GTB (14:01)
[2018-12-22] MEDS ORDERED: APIX5TAB PO (14:01)
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
[2018-12-26] MEDS ORDERED: APIXABAN 5 MG TABLET PO SCH (21:00)
== END 2018-12-22 20:25 | DRG 871 ==
LOC: E/R 16:19 → ICU 20:22 → 6WM 20:30 → ICU 12-12 05:04 → TEL 12-21 15:41
PROVIDERS: ADMIT Internal Medicine; ATTEND Family Medicine
PROC: 02HV33Z Insertion of Infusion Device into Superior Vena Cava, Percutaneous Approach (ICD-10-PCS; principal; 2018-12-12)
PROC: 30233N1 Transfusion of Nonautologous Red Blood Cells into Peripheral Vein, Percutaneous Approach (ICD-10-PCS; 2018-12-12)
PROC: 5A1935Z Respiratory Ventilation, Less than 24 Consecutive Hours (ICD-10-PCS; 2018-12-19)
DX: A41.9 Sepsis, unspecified organism (principal); J69.0 Pneumonitis due to inhalation of food and vomit; R53.2 Functional quadriplegia; R65.21 Severe sepsis with septic shock; J96.20 Acute and chronic respiratory failure, unspecified whether with hypoxia or hypercapnia; G92 Toxic encephalopathy; N39.0 Urinary tract infection, site not specified; E87.0 Hyperosmolality and hypernatremia; N17.9 Acute kidney failure, unspecified; E87.2 Acidosis; G93.49 Other encephalopathy; I82.403 Acute embolism and thrombosis of unspecified deep veins of lower extremity, bilateral; E86.0 Dehydration; E87.6 Hypokalemia; I44.0 Atrioventricular block, first degree; E03.9 Hypothyroidism, unspecified; D50.9 Iron deficiency anemia, unspecified; Z66 Do not resuscitate; R13.19 Other dysphagia; E83.42 Hypomagnesemia; Z93.0 Tracheostomy status; Y95 Nosocomial condition; Z22.322 Carrier or suspected carrier of Methicillin resistant Staphylococcus aureus; Z93.1 Gastrostomy status; Z86.718 Personal history of other venous thrombosis and embolism
CPT/HCPCS: 36430; 36569; 36600; 70450; 71045; 76775; 76937; 80048; 80053; 80202; 81001; 81003; 82043; 82533; 82803; 82962; 83036; 83605; 83735; 84100; 84155; 84300; 84443; 84484; 85025; 85610; 85730; 86850; 86900; 86901; 86920; 87070; 87081; 87086; 87400; 92526; 92610; 93005; 93306; 93970; 94640; 94664; 96374; 96375; 97163; C1769; J0360; J0461; J0692; J1644; J1650; J2543; J3370; J3475; J3480; J7030; J7040; J7060; J7070; J7120; P9016; P9047